=== PATIENT | female | born 1950 | race Caucasian/White ===

== ENCOUNTER 2024-11-27 11:14 | HOS | payer OTHER, MEDICARE, SELFPAY ==
--- OUTSIDE RECORDS SUMMARY | 2017-07-18 12:53 | XMS_ITS | Continuity of Care Document ---
Author Organization [facility] Address [address] [place] [address] Phone Care Team Providers Care Sole Leather Cutting Machine Operator Name Role Phone Ztest, Provider Unavailable Unavailable Allergies, Adverse Reactions, Alerts Substance Reaction Status Criticality haloperidol Other Active No Information HALOPERIDOL LACTATE Other Active No Infor mation Medications Medication Instructions Dosage Effective Dates (start - stop) Status Comments ADVAIR DISKUS 250-50MCG DISKS 1 BID 7 - Active SINGULAIR 10MG TABS 1 QPM - Active HYDROCHLOROTHIAZIDE 25MG TABS 1 QAM 7 - Active ENBREL 50MG/ML SYRINGES 1 Q WEEK - Ac tive ALBUTEROL 90MCG PUFFS 2 QID - Acti ve ADULT LOW STRENGTH 81MG TABS 1 QD - Active Advance Directives Directive Yes / No Effective Date File Name No Information Encounters Encounter Description Practice Location Reason(s) For Visit Diagnoses Date Provider Providers Copied on Encounter [facility], [address], [place], [place], [address] , [place] tel: [phone] [place] No Information 8 Ztest Provider. [address] [facility], 4th Floor, [place], [address], [place]. [phone] [facility], [address], [place], [place], [address] , tel: [phone] [employer] No Information 0 201 1 Juice Mary. [address] [place], [address], [place]. tel:[phone] [facility], [address], [place], [place], [address] , [place] tel: [phone] [place] OBESITY NOSRHEUMATOID ARTHRITIS Apr-2 6200 8 Conversion Doctor. [address] [place] [address], [address], [place]. [facility], [address], [place], [place], [address] , [place] tel: [phone] [place] BENIGN HYPERTENSIONDEPRESS SNEHA DISORDER NEC 6200 8 May Will [place], [address], [place]. tel: [phone] [facility], [address], [place], [place], [address] , [place] tel: [phone] [facility] ASTHMA NOS 0 8 Conversion Doctor. [address] [place] [address], [address], [place]. [facility], [address], [place], [place], [address] , [place] tel: [phone] [facility] ACUTE CHOLECYSTITIS 0 200 8 [facility] Robert. iWll [place], [address], [place]. tel: [phone] [facility], [address], [place], [address] , [place] tel: [phone] [place] ACUTE SINUSITIS NOSACUTE BRONCHITIS 200 7 [facility] Mason [address] [place] [address], [id number], [place]. tel: [phone] [facility], [address], [place], [address] , [place] tel: [phone] [place] CHR FRONTAL SINUSITISALOPECIA NOSANXIETY STATE NOSSCREEN MAL NEOP-CERVIXVISUAL DISTURBANCES NEC Sep-2 5-200 7 [facility] [place], [address], [place]. tel:[phone] [facility], [address], [place], [place], [address] , [place] tel:[phone] [place] SCREEN MAL NEOP-RECTUM Sep-2 5-200 7 Conversion Doctor. [address] [place] [address] [place], [address], [place]. [facility], [address], [place], [address] , [place] tel: [phone] [place] CHEST PAIN NEC 7 6 May Mason [address] [place], [place], [address], [place]. tel:[phone] [facility], [address], [place], [place], [address] , [place] tel: [phone] [place] ADJUSTMNT DIS W DEPRESSN 0200 6 May Cueto. [address] [place] [address], [id number], [place]. tel:[phone] [facility], [address], [place], [place], [address] , [place] tel: [phone] [place] ASTHMA NOS W (AC) EXAC 6 [facility] Cueto. [address] [place] [address], [id number], [place]. tel:[phone] [facility], [address], [place], [place], [address] , [place] tel: [phone] [place] No Information 6 Giuliazenaidaaletha Tyra. [address] [place], [address], [place]. tel:[phone] [facility], [address], [place], [place], [address] , [place] tel: [phone] [place] AGORAPHOBIA W PANIC DIS 6 [facility] Cueto. [address] [place] [address], [id number], [place]. tel:[phone] [facility], [address], [place], [address] , [place] tel: [phone] [place] SLEEP APNEA NOSBENIGN NEOPLASM SKIN NOSMALAISE AND FATIGUE NECGENERAL OSTEOARTHROSIS Sep-0 6-200 5 [facility] Cueto. [address] [place] [address], [id number], [place]. tel:[phone] [facility], [address], [place], [address] , [place] tel: [phone] [place] RETENTION URINE NOS 5 May Mason [address] [place], [address], [place]. tel:[phone] [facility] [employer], [address], [place], [place], [address] , [place] tel: [phone] [place] DISORDER OF THYROID NOS 4 Conversion Doctor. [address] [place], [address], [place]. [facility] [employer], [address], [place], [place], [address] , [place] tel:[phone] [place] ANEMIA NOSMEMORY LOSS 4 May Will [place], [address], [place]. tel:[phone] [facility], [address], [place], [place], [address] , [place] tel: [phone] [place] ROUTINE MEDICAL EXAMGYNECOLOGIC EXAMINATION 4 May Mason [address] [place], [place], [address], [place]. tel:[phone] [facility], [address], [place], [place], [address] , [place] tel: [phone] [place] HEMATURIA Feb- 4 Conversion Doctor. Pending sale to [facility] [place], [address], [place]. [facility] [employer], [address], [place], [place], [address] , [place] tel:[phone] [place] SCREEN MAL NEOP OTH SITEPURE HYPERCHOLESTEROLEMS CRN MALIG NEOP-PROSTATE 2 May Will [place], [address], [place]. tel:[phone] [facility] [employer], [address], [place], [place], [address] , [place] tel:[phone] [place] ESOPHAGEAL REFLUX 2 May Will [place], [address], [place]. tel:[phone] [facility], [address], [place], [place], [address] , tel: [phone] [facility] JOINT REPLACED KNEE Aug- 6-200 1 Nolandemetria Cueto. [address] [place], [place], [address], [place]. tel:[phone] [facility], [address], [place], [place], [address] , tel: [phone] [facility] NAUSEA ALONE Tavon- 0-200 1 Rafiq Singh. [address] [place], [place], [address]. tel:[phone] [facility], [address], [place], [place], [address] , tel: [phone] [facility] URIN TRACT INFECTION NOSSTOMACH FUNCTION DIS NECJOINT PAIN-UNSPEC Oct-0 5-200 0 Conversion Doctor. [address] [place] [address], [address], . Family History Family Member Type Diagnosis Age At Onset No Information Payers Payer name Insurance type Covered constitution party ID Authoriza tion(s) No Information Social History Type Description Quantity Date Captured Comments Alcohol Use Details Unknown Caffeine Use Details Unknown Tobacco Use Status No Information Smoking Status No Information Sex Female Chief Complaint And Reason For Visit No Information Reason For Referral Reason For Referral No Information History Of Present Illness Encounter Date Complaint History Of Prese nt Illness No Information Functional Status Date Functional Assessmen t No Information Instructions Date Instruction Additional Infor mation No Information Assessments Type Assessment Date No Information Patient Care Teams Name Effective Dates (start - stop) Status Members No Information
--- OUTSIDE RECORDS SUMMARY | 2017-07-18 12:53 | XMS_ITS | Continuity of Care Document ---
Author Organization [facility] Address [address] [place] [address] Phone Care Team Providers Care Rn Informatics Name Role Phone Ztest, Provider Unavailable Unavailable [...] Diagnoses Date Provider Providers Copied on Encounter [facility], [address], [place], [place], [address] , [place] tel: [phone] [place] No Information 8 Ztest Provider. [address] [address] [facility], 4th Floor, [place], [address], [place]. [phone] [employer], [address], [place], [place], [address] , tel: [phone] [employer] No Information 0 201 1 Juice Mary. [address] [place], [address], [place]. tel:[phone] [facility], [address], [place], [place], [address] , [place] tel: [phone] [facility] OBESITY NOSRHEUMATOID ARTHRITIS Apr-2 6200 8 Conversion Doctor. [address] [place] [address], [address], [place]. [facility], [address], [place], [place], [address] , [place] tel: [phone] [place] BENIGN HYPERTENSIONDEPRESS SNEHA DISORDER NEC 6200 8 May Will [place], [address], [place]. tel: [phone] [facility], [address], [place], [place], [address] , [place] tel: [phone] [facility] ASTHMA NOS 0 8 Conversion Doctor. [address] [place] [address], [address], [place]. [facility], [address], [place], [place], [address] , [place] tel: [phone] [facility] ACUTE CHOLECYSTITIS 0 200 8 [facility] Robert. Will [place], [address], [place]. tel: [phone] [facility], [address], [place], [place], [address] , [place] tel: [phone] [facility] ACUTE SINUSITIS NOSACUTE BRONCHITIS 200 7 [facility] Mason [address] [place] [address], [id number], [place]. tel: [phone] [facility], [address], [place], [place], [address] , [place] tel: [phone] [facility] CHR FRONTAL SINUSITISALOPECIA NOSANXIETY STATE NOSSCREEN MAL NEOP-CERVIXVISUAL DISTURBANCES NEC Sep-2 5-200 7 [facility] [place], [address], [place]. tel:[phone] [facility], [address], [place], [place], [address] , [place] tel:[phone] [facility] SCREEN MAL NEOP-RECTUM Sep-2 5-200 7 Conversion Doctor. [address] [place] [address] [place], [address], [place]. [employer], [address], [place], [place], [address] , [place] tel: [phone] [facility] CHEST PAIN NEC 7 6 May Mason [address] [place], [place], [address], [place]. tel:[phone] [employer], [address], [place], [place], [address] , [place] tel: [phone] [facility] ADJUSTMNT DIS W DEPRESSN 0200 6 May Cueto. [address] [place] [address], [address], [place]. tel:[phone] [employer], [address], [place], [place], [address] , [place] tel: [phone] [facility] ASTHMA NOS W (AC) EXAC 6 [facility] Cueto. [address] [place] [address], [id number], [place]. tel:[phone] [employer], [address], [place], [place], [address] , [place] tel: [phone] [facility] No Information 6 Giuliazenaidaaletha Tyra. [address] [place], [address], [place]. tel:[phone] [employer], [address], [place], [place], [address] , [place] tel: [phone] [place] AGORAPHOBIA W PANIC DIS 6 [facility] Cueto. [address] [place] [address], [id number], [place]. tel:[phone] [employer], [address], [place], [place], [address] , [place] tel: [phone] [facility] SLEEP APNEA NOSBENIGN NEOPLASM SKIN NOSMALAISE AND FATIGUE NECGENERAL OSTEOARTHROSIS Sep-0 6-200 5 [facility] Cueto. [address] [place] [address], [address], [place]. tel:[phone] [employer], [address], [place], [place], [address] , [place] tel: [phone] [facility] RETENTION URINE NOS 5 May Mason [address] [place], [place], [address], [place]. tel:[phone] [facility], [address], [place], [place], [address] , [place] tel: [phone] [facility] DISORDER OF THYROID NOS 4 Conversion Doctor. [address] [place], [address], [place]. [facility], [address], [place], [place], [address] , [place] tel:[phone] [facility] ANEMIA NOSMEMORY LOSS 4 May [address] [place], [address], [place]. tel:[phone] [facility], [address], [place], [place], [address] , [place] tel: [phone] [facility] ROUTINE MEDICAL EXAMGYNECOLOGIC EXAMINATION 4 May Mason [address] [place], [place], [address], [place]. tel:[phone] [facility], [address], [place], [place], [address] , [place] tel: [phone] [facility] HEMATURIA Feb- 4 Conversion Doctor. [facility] [place], [address], [place]. [facility], [address], [place], [place], [address] , [place] tel:[phone] [facility] SCREEN MAL NEOP OTH SITEPURE HYPERCHOLESTEROLEMS CRN MALIG NEOP-PROSTATE 2 May Will [place], [address], [place]. tel:[phone] [facility], [address], [place], [place], [address] , [place] tel:[phone] [facility] ESOPHAGEAL REFLUX 2 May [address] [place], [address], [place]. tel:[phone] [employer], [address], [place], [place], [address] , tel: [phone] [facility] JOINT REPLACED KNEE Aug- 6-200 1 Nolandemetria Cueto. [address] [place], [place], [address], [place]. tel:[phone] [facility], [address], [place], [place], [address] , tel: [phone] [facility] NAUSEA ALONE Tavon- 0-200 1 Rafiq Singh. [address] [place], [place], [address]. tel:[phone] [facility], [address], [place], [place], [address] , tel: [phone] [facility] URIN TRACT INFECTION NOSSTOMACH FUNCTION DIS NECJOINT PAIN-UNSPEC Oct-0 5-200 0 Conversion Doctor. [address] [place] [address], [address], . Family History Family Member Type Diagnosis Age At Onset No Information Payers Payer name Insurance type Covered republican ID Authoriza tion(s) No Information Social History [...]
--- OUTSIDE RECORDS SUMMARY | 2023-06-07 03:45 | XMS_ITS | Continuity of Care Document ---
Author Organization [facility] Address [address] [address] [place] [address] Phone Care Team Providers Care Crossbar Switch Adjuster Name Role Phone Thanh DARBY, Rocio Unavailable Unavailable Allergies, Adverse Reactions, Alerts Substance Reaction Status Criticality HALOPERIDOL LACTATE Active No Infor mation haloperidol Active No Information atorvastatin Active No Information adenosine Active No Information Procedures Procedure Date RADEX WRST 2 VIEWS POSTOP FOLLOW-UP VISIT RADEX WRST 2 VIEWS POSTOP FOLLOW-UP VISIT RADEX WRST 2 VIEWS POSTOP FOLLOW-UP VISIT RADEX WRST 2 VIEWS Wrist Long and Short Splint Aleshia POSTOP FOLLOW-UP VISIT RADEX WRST 2 VIEWS Splint supplies misc Special casting material [place] tape Cast sup sht arm adult fbrgl TX OF DISTAL RADIAL OR EPIPHYSEAL SEP W/ OR W/O ULNAR STYLOID FX OFFICE/OUTPATIENT VISIT NEW DOC FX & TEST/TXMNT FOR OP Advance Directives Directive Yes / No Effective Date File Name Resuscitation Not Answered N/A N/A Life Support Not Answered N/A N/A Intubation Not Answered N/A N/A Antibiotics Not Answered N/A N/A IV Fluid Support Not Answered N/A N/A Tube Feed Not Answered N/A N/A Other Directive N/A N/A WARNING:The information contained in this section is historical and is provided for information only and does not constitute a legal document or any assurance that the information is still accurate. Please verify the information with the blum of the legal document before using it for clinical purposes. Encounters Encounter Description Practice Location Reason(s) For Visit Diagnoses Date Provider Providers Copied on Encounter [facility] , [address] [facility] [address] [address], [place], [place], Critical access hospital, tel:[phone] [facility] Unspecified fracture of the lower end of left radius, subsequent encounter for closed fracture with routine healing May-0 4 Knetzer Rocio. [address], [place], [place], [address] [place] [address] , . tel: [phone] Referring Provider: Ana Rosa Mcdowell, [address] [place] [address], [facility]. tel:[phone] [facility] , [address] [address] [place] [address], [place], [place], Critical access hospital, tel:[phone] [facility] Unspecified fracture of the lower end of left radius, subsequent encounter for closed fracture with routine healing Apr- 4 Knetzer Rocio. [address], [place], [place], [address] , . tel: [phone] Referring Provider: Ana Rosa Mcdowell, [address] [place] [address], [facility]. tel:[phone] [facility] , [address] [facility], [place], Critical access hospital, tel:[phone] [facility] Unspecified fracture of the lower end of left radius, subsequent encounter for closed fracture with routine healingThumb pain, right Feb- 4 Knetzer Rocio. [address], [place], [place], [address] , . tel: [phone] Referring Provider: Ana Rosa Mcdowell, [address] [place] [address], [facility]. tel:[phone] [facility] , [address] [facility] [address], [place], [place], Critical access hospital, [phone] [facility] Closed fracture of distal end of left radius, unspecified fracture morphology, initial encounterThumb pain, right 4 Thanh Edgarn. [address], [place], [place], [address] , . tel: [phone] Referring Provider: Ana Rosa Mcdowell, [address] [place] [address], [address]. tel:[phone] OFFICE/OUTPAT IENT VISIT NEW [facility] , [address] [place] [address] [address], [place], Critical access hospital, [phone] [facility] Body mass index [BMI] 38.0-38.9, adultClosed fracture of distal end of left radius, unspecified fracture morphology, initial encounter 4 Thanh Chan. [address], [place], [place], [address] [place] [address] , . tel: [phone] Referring Provider: Ana Rosa Mcdowell, [address] [place] [address], [address]. tel:[phone] Family History Family Member Type Diagnosis Age At Onset No Information Payers Payer name Insurance type Covered republican ID Sohail bahena(s) Essence E2 [id number] Social History Type Description Quantity Date Captured Comments Alcohol Use Details Unknown Caffeine Use Details Unknown Tobacco Use Status Current non-smoker Smoking Status Never smoker Non-Smoking Tobacco Use Details : No Details Available : No Details Available Sex Female Chief Complaint And Reason For Visit No Information Reason For Referral Reason For Referral No Information Plan Of Treatment Date Type Action Status Referral Ordered: RADEX WRST 2 VIEWS LT ordered Referral Ordered: RADEX WRST 2 VIEWS LT wrist ordered History Of Present Illness Encounter Date Complaint History Of Prese nt Illness No Information Functional Status Date Functional Assessmen t No Information Instructions Date Instruction Additional Infor mation Fall prevention home exercise program handout provided Giving encouragement to exercise Related to Body mass index [BMI] 38.0-38.9, adult Assessments Type Assessment Date assessment Unspecified fracture of the lower end of left radius, subsequent encounter for closed fracture with routine healing Patient Care Teams Name Effective Dates (start - stop) Status Members No Information
--- OUTSIDE RECORDS SUMMARY | 2023-06-07 03:45 | XMS_ITS | Continuity of Care Document ---
Author Organization [facility] Address [address] [address] [place] [address] Phone Care Team Providers Care Casting Director Name Role Phone Thanh DARBY, Rocio Unavailable [...] VIEWS Splint supplies misc Special casting material [place] tape Cast sup sht arm adult fbrgl [...] Diagnoses Date Provider Providers Copied on Encounter [facility] , [address] [facility] [address] [place] [address], [place], [place], [facility], tel:[phone] [facility] Unspecified fracture of the lower end of left radius, subsequent encounter for closed fracture with routine healing May-0 4 Knetzer Rocio. [address] [facility] [address], [place], [place], [address] [place] [address] , . tel: [phone] Referring Provider: Ana Rosa Mcdowell, [address] [place] [address], [facility]. tel:[phone] [facility] , [address] [address] [place] [address], [place], [place], [facility], tel:[phone] [facility] Unspecified fracture of the lower end of left radius, subsequent encounter for closed fracture with routine healing Apr- 4 Knetzer Rocio. [address], [place], [place], [address] , . tel: [phone] Referring Provider: Ana Rosa Mcdowell, [address] [place] [address], [facility]. tel:[phone] [facility] , [address] [facility], [place], [place], [facility], tel:[phone] [facility] Unspecified fracture of the lower end of left radius, subsequent encounter for closed fracture with routine healingThumb pain, right Feb- 4 Knetzer Rocio. [address] [facility], [place], [place], [address] , . tel: [phone] Referring Provider: Ana Rosa Mcdowell, [address] [place] [address], [facility]. tel:[phone] [facility] , [address] [facility] [address] [facility] [facility], [place], [place], [facility], [phone] [facility] Closed fracture of distal end of left radius, unspecified fracture morphology, initial encounterThumb pain, right 4 Thanh Edgarn. [address], [place], [place], [address] , . tel: [phone] Referring Provider: Ana Rosa Mcdowell, [address] [place] [address], [address]. tel:[phone] OFFICE/OUTPAT IENT VISIT NEW [facility] , [address] [place] [address], [place], [place], [facility], [phone] [facility] Body mass index [BMI] 38.0-38.9, adultClosed fracture of distal end of left radius, unspecified fracture morphology, initial encounter 4 Thanh Chan. [address] [facility] [address], [place], [place], [address] [place] [address] , . tel: [phone] Referring Provider: Ana Rosa Mcdowell, [address] [place] [address], [address]. tel:[phone] Family History Family Member Type Diagnosis Age At Onset No Information Payers Payer name Insurance type Covered republican ID Sohail bahena(s) Essence E2 OT [id number] Social History Type Description Quantity Date Captured [...]
[2024-11-27] VITALS (9 sets, daily range): BP systolic 122–147; BP diastolic 73–108; PULSE 108–190; RESP 11–28; TEMP 36.3; O2SAT 88–95
--- NOTE | 2024-11-27 11:20 | ECG_ITS ---
Test Date: 2024-11-27 11:23:16 Measurements Intervals [place] Rate: 179 P: 0 MN: 0 QRS: -28 QRSD: 95 T: 156 QT: 267 QTc: 461 Interpretive Statements ATRIAL FIBRILLATION WITH RAPID VENTRICULAR RESPONSE BORDERLINE LEFT AXIS DEVIATION [QRS AXIS < -20] MODERATE VOLTAGE CRITERIA FOR LVH, CONSIDER NORMAL VARIANT [MEETS CRITERIA IN ONE OF: R(aVL), S(V1), R(V5), R(V5/V6)+S(V1)] ST DEVIATION AND MODERATE T-WAVE ABNORMALITY, CONSIDER LATERAL ISCHEMIA [-0.1+ mV T WAVE IN I/aVL/V5/V6] No previous ECG available for comparison Electronically Signed On 11-27-2024 14:44:54 CDT by Delroy Ruggiero M.D.
--- NOTE | 2024-11-27 11:29 | ER_ITS ---
This report was moved to the correct visit on 12/03/2024. The original report was signed by Filemon Guillermo MD on 11/27/24 [id number]. HPI - General Adult General Chief complaint: Arrhythmia/Palpitations Stated complaint: PAIN CONTRAOL Time Seen by Provider: 11/27/24 11:26 History of Present Illness HPI narrative: 74-year-old female with history of AFib that is currently on hospice presents to the emergency department for evaluation for feeling uneasy and restless peers patient was found to have a heart rate in the 180s upon arrival to the emergency department. And states they stopped her medications due to her being on hospice. Patient does want her heart rate to be controlled at time of initial evaluation. Related Data Allergies Allergy/AdvReac Type Severity Reaction Status Date / Time adhesive AdvReac Intermediate Rash Verified 11/27/24 14:30 Review of Systems Review of Systems: All systems reviewed & are unremarkable except as noted in HPI and below PMFSH Past Medical History Medical History (Updated 11/27/24 @ 17:56 by Filemon Guillermo MD) Tonsillar cancer Colon cancer metastasized to bone Congestive heart failure, unspecified Coronary artery disease Atrial fibrillation with RVR Essential hypertension Surgical History Surgical History (Updated 11/27/24 @ 17:44 by Clive Ferreira MD) Stented coronary artery 12/2018 History of lobectomy of lung Family History Family History (Updated 11/27/24 @ 17:46 by Clive Ferreira MD) Father Carcinoma of colon Lung cancer COPD (chronic obstructive pulmonary disease) Mother Acute myocardial infarction, Onset Age: 68 Other Unknown family medical history Social History Social History (Updated 11/27/24 @ 17:46 by Clive Ferreira MD) Social History: Lives in a duplex she shared with her son. 3 times. Lifelong nonsmoker. Occasionally had wine but no other alcohol. 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 Code status is DNR. Spiritual care concerns: No Exam Narrative: APPEARANCE: Uncomfortable appearing HEAD: normocephalic, atraumatic. EYES: PERRLA/EOMI, conjunctivae clear. NOSE: Normal no drainage EARS:TMS clear with good light reflex. THROAT: Pharynx clear, no exudate. NECK: Supple. No adenopathy, no masses. RESPIRATORY: Airway patent, respirations nonlabored. Clear to auscultation bilaterally, no rales, rhonchi, wheezing. CARDIOVASCULAR: AFib, tachycardia ABDOMINAL: Soft, nontender, nondistended, normal bowel sounds MUSCULOSKELETAL: Moves all extremities. Strength/ROM intact, No edema, No calf tenderness. NEURO: Alert. Cranial nerves II through XII intact. Good gait. Good coordination SKIN: Warm, dry. Normal Color Course Vital Signs Vital signs: Vital Signs Temperature 97.4 F L 11/27/24 11:14 Pulse Rate 166 H 11/27/24 11:14 Respiratory Rate 18 11/27/24 11:14 Blood Pressure 133/108 H 11/27/24 11:14 Pulse Oximetry 92 11/27/24 11:14 Oxygen Delivery Room Air 11/27/24 11:14 Temperature 97.3 F L 11/27/24 13:33 Pulse Rate 168 H 11/27/24 13:33 Respiratory Rate 24 H 11/27/24 13:33 Blood Pressure 134/73 11/27/24 13:33 Pulse Oximetry 90 11/27/24 13:33 Oxygen Delivery Room Air 11/27/24 11:14 Medical Decision Making MDM Narrative Medical decision making narrative: 74-year-old female presents emergency department for evaluation for rapid heart rate and increased anxiety. Patient is on hospice care for end-stage metastatic cancer. Patient had previously had her read controlling medications stopped. Patient's heart rate did spike today and patient did have increased anxiety and discomfort from this. The emergency department patient was unsure of her code status so patient was ordered baseline labs and patient was treated with IV fluids and started on Cardizem. Cardizem bolus did help to control her heart rate but as the Cardizem bolus wore off her heart rate once again increased to the 180s. After a discussion with the hospice nurse and the family the family and patient wished to be made comfort care. They do not wish to have any additional medications given for heart rate control. Patient will be admitted to inpatient hospice. Paperwork for DNI DNR/comfort care was signed. Differential Diagnosis Differential Diagnosis: AFib, a flutter, ACS, dehydration, UTI, COVID, RSV, influenza Vital Signs Vital Signs: Vital Signs Temperature 97.4 F L 11/27/24 11:14 Pulse Rate 166 H 11/27/24 11:14 Respiratory Rate 18 11/27/24 11:14 Blood Pressure 133/108 H 11/27/24 11:14 Pulse Oximetry 92 11/27/24 11:14 Oxygen Delivery Room Air 11/27/24 11:14 Temperature 97.3 F L 11/27/24 13:33 Pulse Rate 168 H 11/27/24 13:33 Respiratory Rate 24 H 11/27/24 13:33 Blood Pressure 134/73 11/27/24 13:33 Pulse Oximetry 90 11/27/24 13:33 Oxygen Delivery Room Air 11/27/24 11:14 Lab Data Lab results reviewed: Yes I reviewed the patient's lab results. 11/27/24 11:42 11/27/24 11:42 Labs: Lab Results 11/27/24 11/27/24 Range/Units 11:42 13:58 WBC 15.6 H (4.5-10.0) K/mm3 RBC 5.87 H (4.2-5.4) M/mm3 Hgb 16.2 H (12.0-15.0) g/dL Hct 50.9 H (37.0-47.0) % MCV 86.7 (80-100) fl MCH 27.6 (26-34) pg MCHC 31.8 L (32-36) g/dl RDW 16.8 H (11.5-14.5) % Plt Count 261 (150-375) k/mm3 MPV 10.6 H (7.4-10.4) fl Immature Gran % (Auto) 1.1 H (0-0.5) % Neut % (Auto) 87.2 H (45.5-73.1) % Lymph % (Auto) 5.2 L (18.3-44.2) % [place] % (Auto) 6.4 (2.6-8.5) % Eos % (Auto) 0.0 (0-4.4) % Baso % (Auto) 0.1 L (0.2-1.2) % Lymph # (Auto) 0.81 L (0.9-3.2) K/mm3 [place] # (Auto) 1.0 H (0.1-0.6) K/mm3 Eos # (Auto) 0.0 (0-0.3) K/mm3 Baso # (Auto) 0.0 (0.0-0.1) K/mm3 Abs Immat Gran (auto) 0.17 H (0.00-0.031) K/mm3 Absolute Neuts (auto) 13.6 H (1.3-6.7) K/mm3 Absolute Nucleated RBC 0.030 H (0.0-0.012) K/mm3 Nucleated RBC % 0.2 (0.0-0.2) % PT 15.2 H (11.1-14.7) Seconds INR 1.2 APTT 23.6 (22.3-36.8) Seconds Sodium 145 (137-145) mmol/L Potassium 4.2 (3.4-5.0) mmol/L Chloride 97 L (98-107) mmol/L Carbon Dioxide 32 H (22-30) mmol/L Anion Gap 16 H (4-12) mmol/L BUN 63 H (7-17) mg/dL Creatinine 1.62 H (0.7-1.0) mg/dL Estim Creat Clear Calc 25 ml/min Estimated GFR 31 L (59 - ) Glucose 182 H (65-110) mg/dL Calcium 10.2 (8.4-10.2) mg/dL Total Bilirubin 2.2 H (0.2-1.3) mg/dL AST 27 (14-36) U/L ALT 18 (6-35) U/L Alkaline Phosphatase 86 (38-126) U/L Total Protein 8.0 (6.3-8.2) g/dL Albumin 4.6 (3.5-5.1) g/dL Urine Color Dark yellow (Yellow) Urine Appearance Turbid H (Clear) Urine pH 5.5 (5.0-9.0) Ur Specific [place] 1.029 (1.001-1.035) Urine Protein 2+ H (Negative) mg/dL Urine Glucose (UA) Negative (Negative) mg/dL Urine Ketones 1+ H (Negative) mg/dL Ur Blood (Man) 2+ H (Negative) Urine Nitrate Negative (Negative) Urine Bilirubin 2+ H (Negative) Urine Urobilinogen 1.0 (<2.0) mg/dL Add Ur Microanalysis Reviewed Leukocyte Esterase Rfl 2+ H (Negative) EDDI/UL Urine RBC 21-50 H (0-2) /hpf Urine WBC 11-20 H (0-3) /hpf Ur Squamous Epith Cells Moderate (Few) /hpf Urine Bacteria 1+ H /hpf Urine Casts 11-20 Discharge Plan Discharge Clinical Impression: Atrial fibrillation, Anxiety, Hospice care Patient Disposition: Hospice [facility] Inpatient Condition: Serious Patient Language: Serbian Follow-up/Referrals: UNKNOWN,DOCTOR [Non-Staff] Please be advised this is a medical document. It is intended for yssv-gm-ohpo communication. It is written in medical language and may contain unfamiliar abbreviations or verbiage. Medical documents are intended to carry relevant information, facts as evident, and the clinical opinion of the practitioner at the time of the encounter. This report may have been done utilizing a voice recognition system. Attempts have been made to correct errors. However, there may be uncorrected grammatical, spelling, and recognition errors present. The file time of this note does not necessarily represent the time the patient was seen. Report Initialized date/time: Filemon Guillermo MD 11/27/24 / 1129 Electronically signed by: Filemon Guillermo MD 11/27/24 [id number]
[2024-11-27] MEDS: LACTATED RINGERS 1,000 ML 999 ML IV CONT (11:38)
[2024-11-27 11:52] LABS: Hematocrit 50.9 % (37.0-47.0); Hemoglobin 16.2 g/dL (12.0-15.0); Immature Granulocyte Percent A 1.1 % (0-0.5); Lymphocytes Absolute Auto 0.81 K/mm3 (0.9-3.2); Mean Corpuscular HGB Conc 31.8 g/dl (32-36); Mean Corpuscular Hemoglobin 27.6 pg (26-34); Mean Corpuscular Volume 86.7 fl (80-100); Nucleated Red Blood Cells Absolute Auto 0.030 K/mm3 (0.0-0.012); Nucleated Red Blood Cells Perc 0.2 % (0.0-0.2); Platelet Count Result 261 k/mm3 (150-375); Red Blood Count 5.87 M/mm3 (4.2-5.4); White Blood Count 15.6 K/mm3 (4.5-10.0)
[2024-11-27 12:02] LABS: INR 1.2; Prothrombin Time 15.2 Seconds (11.1-14.7)
[2024-11-27 12:03] LABS: Partial Thromboplastin Time 23.6 Seconds (22.3-36.8)
[2024-11-27 12:07] LABS: Alanine Aminotransferase 18 U/L (6-35); Albumin Level 4.6 g/dL (3.5-5.1); Alkaline Phosphatase 86 U/L (38-126); Anion Gap 16 mmol/L (4-12); Aspartate Amino Transferase 27 U/L (14-36); Bilirubin,Total 2.2 mg/dL (0.2-1.3); Blood Urea Nitrogen 63 mg/dL (7-17); Calcium 10.2 mg/dL (8.4-10.2); Carbon Dioxide 32 mmol/L (22-30); Chloride 97 mmol/L (98-107); Estimated CRCL calculation 25 ml/min; Estimated Glomerular Filt Rate 31; Glucose 182 mg/dL (65-110); Potassium 4.2 mmol/L (3.4-5.0); Sodium 145 mmol/L (137-145); Total Protein 8.0 g/dL (6.3-8.2)
--- OUTSIDE RECORDS SUMMARY | 2024-11-27 12:10 | XMS_ITS | Encounter Summary ---
Author Organization [facility] Facility Care Team Providers Care Technician Support Association Name Role Phone Bunny Chan MD Primary Care Provider [phone] Matt Maloney MD Unavailable [phone] Karen Vieira MD Unavailable Asim Alejandre MD Unavailable [phone] Nathan Kaye DO Unavailable [phone] Bunny Chan MD Primary Care Provider [phone] Bunny Chan MD Primary Care Provider +[phone] Asim Alejandre MD Unavailable [phone] Roby Claudio MD Unavailable [phone] Manuel Bravo MD Unavailable [phone] Bunny Chan MD Primary Care Provider [phone] Roby Claudio MD Unavailable [phone] Asim Alejandre MD Unavailable [phone] Encounter Details Date Type Department Care Team (Latest Contact Info) Description 12/14/2016 Orders Only [facility] ProviderViridiana MD [address] [place] [id number] Social History Tobacco Use Types Packs/Day Years Used Date Smoking Tobacco: Never Assessed Comments Unknown Sex and Gender Information Value Date Recorded Sex Assigned at Not on file 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 Gender Identity Not on file Sexual Orientation Not on file documented as of this encounter Plan of Treatment Upcoming Encounters Date Type Department Care Team (Late st Contact Info) Description 07/18/2025 7:30 AM CDT Hospital Encounter [facility] [address] [place] [address] Karen Vieira MD [address] [place] [address] [id number] 07/18/2025 7:30 AM CDT - 07/18/2025 8:00 AM CDT Surgery [facility] [address] [place] [address] Karen Vieira MD [address] [place] [address] COLONOSCOPY Scheduled Procedures Name Priority Associated Diagnoses Date/Ti me COLONOSCOPY Hx colon cancer 07/18/2025 7:30 AM CDT documented as of this encounter Procedures Procedure Name Priority Date/Time Associated Diagnosis Comments SCAN - LABS 12/14/2016 12:00 AM CDT documented in this encounter Results * SCAN - LABS (12/14/2016 12:00 AM CDT) Narrative 12/14/2016 12:00 AM CDT Ordered by an unspecified provider. 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 documented as of this encounter Care Teams Technician Support Association Relationship Specialty Start Date End Date Bunny Chan MD PCP - General 04/08/17 12/30/22 Bunny Chan MD [facility]8 [facility], [address] [id number] PCP - General Family Medicine 12/31/22 06/28/23 Bunny Chan MD [address] [place] [address] MEDICAL ONCOLOGY, [address] [address] PCP - General Family Medicine 06/29/23 08/20/24 Bunny Chan MD [address] [place] [address] PCP - General Family Medicine 08/21/24 Matt Maloney MD Medical Oncologist/Hematologis t Hematology and Oncology 12/07/17 11/15/21 Karen Vieira MD [address] [place] [address] Referring Physician General Surgery 11/26/19 Asim Alejandre MD [address] [place] [address] Oral Pathologist Interventional Cardiology 08/13/21 06/28/23 Nathan Kaye DO [address] [place] [address] MEDICAL ONCOLOGY, [address] [id number] Medical Oncologist/Hematologis t Hematology and Oncology 11/16/21 Asim Alejandre MD 1418 [facility], [facility] [address] [place] [address] Referring Physician Interventional Cardiology 06/29/23 08/20/24 Roby Claudio MD [facility]8 [facility], [facility] [address] [place] [address] Consulting Physician Pulmonary Disease 12/02/23 5 Manuel Bravo MD [facility]8 [facility] [address] [place], [place] [address] Radiation Oncologist Radiation Oncology 08/17/24 Roby Claudio MD [facility]0 [facility] [address] [place] [address] Consulting Physician Pulmonary Disease 08/21/24 Asim Alejandre MD [address] [place], [place] [address] Referring Physician Interventional Cardiology 08/21/24 documented as of this encounter
--- OUTSIDE RECORDS SUMMARY | 2024-11-27 12:10 | XMS_ITS | Encounter Summary ---
Author Organization [facility] Address [address] [address] Care Team Providers Care Cover Operator Name Role Phone Bunny Chan MD Primary Care Provider [phone] Matt Maloney MD Unavailable [phone] Karen Vieira MD Unavailable Asim Alejandre MD Unavailable + [phone] Nathan Kaye DO Unavailable [phone] Bunny Chan MD Primary Care Provider + Bunny Chan MD Primary Care Provider +[phone] Asim Alejandre MD Unavailable [phone] Roby Claudio MD Unavailable [phone] Manuel Bravo MD Unavailable [phone] Bunny Chan MD Primary Care Provider +[phone] Roby Claudio MD Unavailable [phone] Asim Alejandre MD Unavailable [phone] Encounter Details Date Type Department Care Team (Late st Contact Info) Description 03/12/2014 Orders Only [facility] Health Information Management [address] [place] [address] Scanning, Provider Social History Tobacco Use Types Packs/Day Years Used Date Smoking Tobacco: Never Assessed Comments Unknown Sex and Gender Information Value Date Recorded Sex Assigned at Not on file 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 Gender Identity Not on file Sexual Orientation Not on file documented as of this encounter Plan of Treatment Upcoming Encounters Date Type Department Care Team (Late st Contact Info) Description 07/18/2025 7:30 AM CDT Hospital Encounter [facility] GI Lab [address] [place] [address] Karen Vieira MD [address] [place] [address] 07/18/2025 7:30 AM CDT - 07/18/2025 8:00 AM CDT Surgery [facility] Lab [address] [place] [address] Karen Vieira MD [address] [place] [address] COLONOSCOPY Scheduled Procedures Name Priority Associated Diagnoses Date/Ti me COLONOSCOPY Hx colon cancer 07/18/2025 7:30 AM CDT documented as of this encounter Procedures Procedure Name Priority Date/Time Associated Diagnosis Comments CARDIOLOGY DOCUMENT SCAN 03/12/2014 documented in this encounter Results * SCAN - CARDIOLOGY (03/12/2014) Anatomical Region Laterality Modality Other Provider Scanning CV CARDIAC SERVICES PROCEDURES Final Result documented in this encounter Visit Diagnoses Not on filedocumented in this encounter Additional Health Concerns Infection Onset Date Last Indicated Resolved Time COVID: Suspected 09/16/2021 09/16/2021 09/16/2021 7:44 AM CDT Norovirus suspected 03/19/2024 03/19/2024 03/19/19 4:19 PM 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 COVID: Suspected 03/19/2024 03/19/2024 03/19/2024 11:53 AM 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 SPECIALIST documented as of this encounter Care Teams Cover Operator Relationship Specialty Start Date End Date Bunny Chan MD PCP - General 04/08/17 12/30/22 Bunny Chan MD [facility]8 [facility], [facility] [address] [place], [place] [address] PCP - General Family Medicine 12/31/22 06/28/23 Bunny Chan MD [facility]8 [facility], [facility] [address] [place] [address] PCP - General Family Medicine 06/29/23 08/20/24 Bunny Chan MD [address] [place] [address] PCP - General Family Medicine 08/21/24 Matt Maloney MD Medical Oncologist/Hematologis t Hematology and Oncology 12/07/17 11/15/21 Karen Vieira MD [address] [place] [address] Referring Physician General Surgery 11/26/19 Asim Alejandre MD [facility] [address] [address] Personal Care Home Administrator Interventional Cardiology 08/13/21 06/28/23 Nathan Kaye DO [facility]8 [facility], [facility] [address] [place] [address] Medical Oncologist/Hematologis t Hematology and Oncology 11/16/21 Asim Alejandre MD 1418 [facility], [facility] [address] [place], [place] [address] Referring Physician Interventional Cardiology 06/29/23 08/20/24 Roby Claudio MD 1418 [facility], [facility] [address] [place] [address] Consulting Physician Pulmonary Disease 12/02/23 5 Manuel Bravo MD [facility]8 [facility] [address] [place] [address] Radiation Oncologist Radiation Oncology 08/17/24 Roby Claudio MD 4600 [facility] 200 [place] [address] Consulting Physician Pulmonary Disease 08/21/24 Asim Alejandre MD [address] [place] [address] [address] [place], [place] [address] Referring Physician Interventional Cardiology 08/21/24 documented as of this encounter
--- OUTSIDE RECORDS SUMMARY | 2024-11-27 12:10 | XMS_ITS | Clinical Summary ---
Author Organization [facility] Address [address] [place] [address] Care Team Providers Care Extension Course Counselor Name Role Phone Karen Vieira MD Unavailable Nathan Kaye DO Unavailable [phone] Manuel Bravo MD Unavailable [phone] Bunny Chan MD Primary Care Provider [phone] Roby Claudio MD Unavailable [phone] Asim Alejandre MD Unavailable [phone] Allergies Active Allergy Reactions Criticality Noted Date Comments Adhesive Other (See comments) Low 09/16/2021 Removed skin when taken off on stomach only okay on other parts of body Medications rivaroxaban (XARELTO) 20 mg tablet Take 1 tablet (20 mg total) by mouth daily with dinner 90 tablet 1 3 Active atorvastatin (LIPITOR) 80 mg tablet Take 1 tablet (80 mg total) by mouth nightly Active losartan (COZAAR) 100 mg tablet Take 1 tablet (100 mg total) by mouth daily Active montelukast (SINGULAIR) 10 mg tabletIndicatio ns:Non-seasonal allergic rhinitis due to pollen TAKE 1 TABLET BY MOUTH EVERY DAY AT NIGHT 90 tablet 2 4 Active nitroglycerin (NITROSTAT) 0.[address] 1 tablet (0.4 mg total) under the tongue every 5 (five) minutes as needed for chest pain 4 Active dilTIAZem CD 180 mg 24 hr capsule Take 1 capsule (180 mg total) by mouth daily 5 Active ondansetron (ZOFRAN) 4 mg tablet Take 1 tablet (4 mg total) by mouth every 6 (six) hours as needed for nausea or vomiting 30 tablet 2 5 Active benzonatate (TESSALON) 100 mg capsule Take 1 capsule (100 mg total) by mouth 3 (three) times a day as needed for cough 30 capsule 5 Active acetaminophen (TYLENOL) 325 mg tabletIndicatio ns:Fever,Pain Take 2 tablets (650 mg total) by mouth every 4 (four) hours as needed for pain, headaches or fever 5 Active pregabalin (LYRICA) 50 mg capsule Take 1 capsule (50 mg total) by mouth 3 (three) times a day 90 capsule 1 5 04/01/[address] (PROTONIX) 40 mg EC tablet Take 1 tablet (40 mg total) by mouth 2 (two) times a day 60 tablet 5 Active meloxicam (MOBIC) 15 mg tablet 5 Active oxyCODONE (ROXICODONE) 20 mg tabletIndicatio ns:Cancer associated pain Take 1 tablet (20 mg total) by mouth every 4 (four) hours as needed for pain 100 tablet 5 Active furosemide (LASIX) 20 mg tablet Take 1 tablet (20 mg total) by mouth daily 30 tablet 5 Active predniSONE (DELTASONE) 20 mg tabletIndicatio ns:Anti-inflamm atory Take 3 tablets (60 mg) by mouth daily 90 tablet 5 11/03/19 25 Active Problems Patient Care Coordination No te Formatting of this note migh t be different from the original. Referring provider: Dr. Claudio Ms. Joseph Rodriguez is a 70-year-old with a lung nodule. Patient has a history of stage III colon cancer diagnosed in 2019 and is status post partial colectomy and chemotherapy and non-Hodgkin's lymphoma diagnosed in 2017 and is status post chemotherapy and has been in remission since 2018. More recently, she presented with a cough. She was told this was because of her blood pressure medication. On 06/19/2021 the patient underwent a surveillance CT of the chest/abdomen/pelvis with contrast which showed a new 1.1 cm nodule in the right lower lobe. On 06/30/2021 the patient underwent a PET scan which again showed the right lower lobe lung nodule with a maximum SUV of 10.9. There was no evidence of any local, regional or distant metastatic disease. On 07/08/2019 the patient underwent pulmonary function testing which showed an FEV1 of 83% of predicted and a DLCO of 84% of predicted. Patient is a never smoker. She has a history of CAD and is status post stent placement x2 in 2019. Patient presents today for further surgical evaluation. Problem Noted Date Diagnosed Date Severe malnutrition 10/18/2024 Atrial fibrillation with RVR 10/16/2024 Pleural effusion on right 09/27/2024 Palliative care by specialist 09/27/2024 Cancer-related breakthrough pain 09/27/2024 Transient alteration of awareness 09/27/2024 Nausea 09/27/2024 Opioid-induced constipation 09/27/2024 Colon cancer metastasized to lung 09/27/2024 Chronic anticoagulation 04/02/2024 Moderate protein-calorie malnutrition 03/20/2024 Dehydration 03/20/2024 PAMELA (acute kidney injury) 03/20/2024 Dysfunction of both eustachian tubes 03/12/2024 Epistaxis 03/12/2024 Deviated nasal septum 03/12/2024 Chemotherapy-induced neutropenia 02/15/2024 Cough with hemoptysis 11/29/2023 Mass of soft tissue 11/29/[address] nodules [address] 11/29/2023 Secondary malignant neoplasm of right lung 10/17 Paroxysmal atrial fibrillation 07/01/2023 Non-seasonal allergic rhinitis due to pollen Encounter for management of implanted device 09/2022 On continuous oral anticoagulation 01/05/2023 History of cardiomyopathy 01/05/2023 Pulmonary hypertension 06/30/2022 Paroxysmal atrial fibrillation 06/17/2022 Atrial fibrillation with rapid ventricular respo nse 05/28/2022 Mediastinal lymphadenopathy 05/12/2022 Overview (05/12/2022): Added automatically from request for surgery [id number] Hiatal hernia 04/27/2022 Palpitations 04/15/2022 BMI 32.0-32.9,adult 01/26/2022 Chronic cough 11/24/2021 Posterior rhinorrhea 11/24/2021 Status post partial lobectomy of lung 11/24/2021 Iron deficiency anemia 11/16/2021 Aortic root dilatation 10/23/2021 Diverticular disease 10/23/2021 Grade I diastolic dysfunction 10/23/2021 Left-sided epistaxis 10/23/2021 Mild concentric left ventricular hypertrophy Mixed dyslipidemia 10/23/2021 Obesity, Class I, BMI 30-34.9 10/23/2021 Obstructive sleep apnea 10/23/2021 Acute angina 10/23/2021 Chest pain on exertion 10/23/2021 Coronary artery disease invo lving shoshone[place]bannock coronary artery of shoshone[place]bannock heart without angina pectoris 10/23/2021 History of colonic polyps 10/23/2021 Primary malignant neoplasm o f colon with metastasis in female 10/23/2021 Well child examination 10/23/2021 Shortness of breath 09/16/2021 Solitary pulmonary nodule 07/03/2021 Nonsmoker 07/03/2021 History of colon cancer 07/03/2021 Malignant neoplasm of sigmoid colon 10/24/2019 Cancer Staging:Clinical stage from 11/21/2019:Stage IIIC(cT3, cN2b, cM0) - Unsigned Preoperative evaluation of a medical condition to rule out surgical contraindications (TAR required) 10/01/2019 Coronary artery disease invo lving shoshone[place]bannock coronary artery of shoshone[place]bannock heart 02/14/2019 Nonrheumatic aortic valve insufficiency 02/15/20 19 History of cardiac catheterization 02/05/2019 Angina pectoris, unstable 01/29/2019 Chest pain 01/29/2019 Dyspnea on exertion 01/29/2019 Abnormal ECG 01/29/2019 Essential hypertension 01/29/2019 Mixed hyperlipidemia 01/29/2019 Nonrheumatic tricuspid valve regurgitation 01/29 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 Osteoarthrosis, pelvic region and thigh 12/14/19 17 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 17 Other and unspecified hyperlipidemia 12/13/2016 Pure hypercholesterolemia 12/09/2016 Essential (primary) hypertension 06/05/2015 Resolved Problems Problem Noted Date Diagnosed Date Resolved Date Hyperkalemia 12/01/2023 12/02/2023 Encounters Date Type Department Care Team Description 10/24/2024 Home Care Visit [address] [place] [address] Amalia Alvarez RN SN TRIAGE ENCOUNTER 10/22/2024 4:00 PM CDT Office Visit [facility] [address] [facility] [address] [place] [phone] Nathan Kaye DO Malignant neoplasm of sigmoid colon (HCC) (Primary Dx); Cancer associated pain 10/21/2024 Home Care Visit [address] [place] [address] Liliane Tomlin RN SN TRIAGE ENCOUNTER 10/20/2024 Orders Only [facility] [address] [facility] [address] [place] [address] Andrea Zhu MD 10/20/2024 Telephone [facility] [address] [place] [phone] Zoila Charles RN 10/16/2024 11:19 AM CDT - 10/18/2024 11:04 AM CDT Hospital Encounter [facility] 5 Med Surg [address] [place] [address] Sera Chacon MD [place], MD Heather Anne, oRn James MD Atrial fibrillation with RVR (HCC) (Primary Dx); Nausea and vomiting, unspecified vomiting type; Cancer associated pain Discharge Disposition: Discharge to home or self care 10/03/2024 3:15 PM CDT Office Visit [facility] Oncology [address] [facility] [address] [place] [phone] Vargas, Nathan L., DO Malignant neoplasm of sigmoid colon (HCC) 10/03/2024 2:45 PM CDT Clinical Support [facility] at [address] [address] Malignant neoplasm of sigmoid colon (HCC) 09/28/2024 12:15 PM CDT Treatment [facility] Medical Office Building 2 Radiation Oncology [address] [place] [phone] Manuel Bravo MD 09/28/2024 12:00 PM CDT Treatment [facility] Medical Office Building 2 Radiation Oncology [address] [place] [address] Manuel Bravo MD 09/28/2024 8:00 AM CDT Treatment [facility] Medical Office [facility] 2 Radiation Oncology [address] [place] [address] Manuel Bravo MD 09/28/2024 Completion of Therapy [facility] 2 Radiation Oncology [address] [place] [address] Manuel Bravo MD 09/28/2024 Orders Only RAD ONC TREATMENTS Miscellaneous, Not In File 09/28/2024 OTV [facility] 2 Radiation Oncology [address] [place] [address] Manuel Bravo MD 09/26/2024 10:43 PM CDT - 09/28/2024 3:11 PM CDT Hospital Encounter [facility] 5 Med Surg [address] [place] [address] Brigida Marquez MD Sada, MD Obie Ivy, Nicolas Celaya MD Pleural effusion on right (Primary Dx); Rib lesion; Intractable pain; Hypoxemia; Palliative care by specialist [Z51.5]; Cancer-related breakthrough pain [G89.3]; Transient alteration of awareness [R40.4]; Nausea [R11.0]; Opioid-induced constipation [K59.03, T40.2X5A]; Colon cancer metastasized to lung (HCC) [C18.9, C78.00] Discharge Disposition: Discharge to home or self care 09/21/2024 Telephone [facility] [address] [place] [address] [address] [place] [address] Torrie Johnson, [facility] 09/10/2024 Telephone [facility] Physicians [facility] [address] [place] [address] [address] [place] [phone] Joseph Camejo CMA 09/05/2024 9:45 AM CDT Office Visit [facility] [address] [place] [address] [address] [place] [address] Nathan Kaye, Malignant neoplasm of sigmoid colon (HCC) (Primary Dx); 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) 09/05/2024 9:15 AM CDT Clinical Support [facility] at [address] [phone] 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); Malignant neoplasm of sigmoid colon (HCC); Secondary malignant neoplasm of right lung (HCC) 08/29/2024 Documentation [facility] [address] [facility] [address] [place] [address] Barbara Rosen, LALIT PRIOR AUTH-FRUZAQLA from Last 3 Months Immunizations Immunization Administration Dates Next Due Pfizer SARS-CoV-2 Monovalent Vaccination (12+ Yrs) PURPLE 07/22/2020,07/01/2020 Surgical History Surgery Date Site/Laterality Comments APPENDECTOMY MOHS SURGERY 02/29/2000 - 02/27/2001 N/A Forehead SKIN CANCER EXCISION CARDIAC SURGERY 02/05/2019 N/A Cardiac stents x2 for angina COLON SURGERY august 2019 - colon cancer, colon resection followed by chemo; COLONOSCOPY x2 hx of polyps PORTACATH PLACEMENT 2019 CT CHEST TUBE INSERTION RIGHT 09/02/2021 LOBECTOMY 08/28/2021 - 09/27/2021 Right Medical History Medical History Date Comments Lymphoma (HCC) 11/2016 chemo tx til 3/2 018 Skin cancer Hyperlipidemia Hypertension Chest pain Coronary artery disease Colon cancer (HCC) 04/2019 chemo afterwa rds CAD S/P percutaneous coronar y angioplasty Motion sickness Claustrophobia Sleep apnea treated with noc turnal BiPAP 10/23/2021 Cough Lung disease Pneumothorax on right 08/2021 occured du ring procedure - had to stop procedure - chest tube inserted Menopause Nosebleed Family History Medical History Relation Name Comments Diabetes Brother Heart disease Brother Hypertension Brother Heart disease Father Lung cancer Father Colon cancer Father's Brother 1 Colon cancer Father's Brother 2 Diabetes Father's Sister Heart disease Mother Hypertension Mother Diabetes Paternal Grandmother Relation Name Status Comments Brother Father Father's Brother 1 Father's Brother 2 Father's Sister Mother Paternal Grandmother Social History Tobacco Use Types Packs/Day Years Used Date Smoking Tobacco: Never Smokeless Tobacco: Never Tobacco Cessation:Counseling Given: Not Answered Alcohol Use Standard Drinks/Week Comments Not Currently 0 (1 standard drink = 0.6 oz pur e alcohol) ocassional Social Connection and Isolation Panel Answer Date Recorded In a typical week, how many times do you talk on the phone with family, friends, or neighbors? More than three times a week 09/27/2024 How often do you get togethe r with friends or relatives? More than three times a week 09/27/2024 How often do you attend chur ch or holiness services? Never 09/27/2024 Do you belong to any clubs o r organizations such as jehovah's witness groups, unions, fraternal or athletic groups, or school groups? No 09/27/2024 How often do you attend meet ings of the clubs or organizations you belong to? Never 09/27/2024 Are you , , di vorced, , never , or living with a partner? 09/27/2024 AUDIT-C Answer Date Recorded Q1: How often do you have a drink containing alcohol? Monthly or less 10/03/2024 Q2: How many drinks containi ng alcohol do you have on a typical day when you are drinking? Patient does not drink Q3: How often do you have si x or more drinks on one occasion? Never 10/03/2024 Overall Financial Resource Strain (CARDIA) Answe r Date Recorded How hard is it for you to pa y for the very basics like food, housing, medical care, and heating? Not hard at all 09/27/2024 PHQ-2 Answer Date Recorded PHQ-2 Total Score (If total score is 3 or more points, staff should administer the PHQ-9) 0 10/23/2021 PRAPARE - Transportation Answer Date Re corded In the past 12 months, has l ack of transportation kept you from medical appointments or from getting medications? No 08/30 In the past 12 months, has l ack of transportation kept you from meetings, work, or from getting things needed for daily living? No 09/27/2024 Housing Stability Vital Sign Answer Rocky e Recorded In the last 12 months, was t here a time when you were not able to pay the mortgage or rent on time? No 09/27/2024 In the past 12 months, how m any times have you moved where you were living? 0 09/27/2024 At any time in the past 12 m [facility], were you homeless or living in a group home (including now)? No 09/27/2024 Social Connection and Isolation Panel Answer Date Recorded In a typical week, how many times do you talk on the phone with family, friends, or neighbors? More than three times a week 10/17/2024 How often do you get togethe r with friends or relatives? More than three times a week 10/17/2024 How often do you attend chur ch or holiness services? Never 10/17/2024 Do you belong to any clubs o r organizations such as jehovah's witness groups, unions, fraternal or athletic groups, or school groups? No 10/17/2024 How often do you attend meet ings of the clubs or organizations you belong to? Never 10/17/2024 Are you , , di vorced, , never , or living with a partner? 10/17/2024 Overall Financial Resource Strain (CARDIA) Answe r Date Recorded How hard is it for you to pa y for the very basics like food, housing, medical care, and heating? Not very hard 10/17/2024 Hunger Vital Sign Answer Date Recorded Within the past 12 months, y ou worried that your food would run out before you got the money to buy more. Never true 10/18/19 25 Within the past 12 months, t he food you bought just didn't last and you didn't have money to get more. Never true 10/17/2024 PRAPARE - Transportation Answer Date Re corded In the past 12 months, has l ack of transportation kept you from medical appointments or from getting medications? No 09/29 In the past 12 months, has l ack of transportation kept you from meetings, work, or from getting things needed for daily living? No 10/17/2024 Housing Stability Vital Sign Answer Rocky e Recorded In the last 12 months, was t here a time when you were not able to pay the mortgage or rent on time? No 10/17/2024 In the past 12 months, how m any times have you moved where you were living? 0 10/17/2024 At any time in the past 12 m [facility], were you homeless or living in a group home (including now)? No 10/17/2024 [facility] Utilities Answer Date Recorded In the past 12 months has th e electric, gas, oil, or water company threatened to shut off services in your home? No 10/17/2024 Personal Safety Answer Date Recorded Have you ever been in or are you currently in a harmful physical or emotional relationship or is someone making you feel afraid or unsafe? 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 Gender Identity Not on file Sexual Orientation Not on file Obstetrics History Last Filed Vital Signs Vital Sign Reading Time Taken Comments Blood Pressure 122/84 10/22/2024 4:20 PM CDT Pulse 70 10/22/2024 4:20 PM CDT Temperature 36.6 C (97.9 F) 10/22/2024 4:20 PM CDT Respiratory Rate 18 10/22/2024 4:20 PM CDT Oxygen Saturation 96% 10/22/2024 4:2 0 PM CDT Inhaled Oxygen Concentration - - Weight 64.4 kg (141 lb 15.6 oz) 025 4:20 PM CDT with shoes Height 162.6 cm (5' 4) 10/16/2024 6:30 PM CDT Body Mass Index 24.37 10/16/2024 6:30 PM CDT Plan of Treatment Upcoming Encounters Date Type Department Care Team (Late st Contact Info) Description 07/18/2025 7:30 AM CDT Hospital Encounter [facility] [address] [place] [address] Karen Vieira MD [address] [place] [address] 07/18/2025 7:30 AM CDT - 07/18/2025 8:00 AM CDT Surgery [facility] [address] [place] [address] Karen Vieira MD [address] [place] [phone] COLONOSCOPY Scheduled Procedures Name Priority Associated Diagnoses Date/Ti me COLONOSCOPY Hx colon cancer 07/18/2025 7:30 AM CDT Health Maintenance Due Date Last Done Comments Hepatitis C Screening 1950 Osteoporosis Screening-Bone Density Scan 1950 DTaP/Tdap/Td Vaccine (1 - Tdap) 10/09/1963 Hepatitis B Screening 1970 Pneumococcal vaccine 65+ (1 of 2 - PCV) 10/09/1971 Zoster Vaccine (1 of 2) 10/09/1971 Breast Cancer Screening-Mammogram 01/25/2015 014 Well Visit 65+ 2017 Depression Screening 10/23/2022 10/23/2021, 01/24/20 19 Covid-19 Vaccine (4 - 2024-2 6 season) 2024 04/09/2021, 07/22/2020, 07/01/2020 Influenza Vaccine (#1) 2024 Fall Risk Assessment 10/18/2025 10/18/2024, 08/21/2024, 10/23/2021, Additional history exists Colon Cancer Screening-Colonoscopy 06/27/2033 06/28/2023, 09/17/2019 Colon Cancer Screening-CT Colonography Discontinued 06/28/2023, 09/17/2019 Colon Cancer Screening-DNA Stool Discontinued 06/28/19 24, 09/17/2019 Colon Cancer Screening-FIT Discontinued 06/28/2023, Colon Cancer Screening-Sigmoidoscopy Discontinued 06/28/2023, 09/17/2019 Medical Devices Implanted Type Area Architectural Design Professor Device Identifier Shelf Expiration Date Model / Serial / Lot Port Right: Chest Description:Rt chest Stents N/A: Heart Description:Cardiac stent x2 Procedures Procedure Name Priority Date/Time Associated Diagnosis Comments US RUQ IP Routine 10/17/2024 10:20 AM CDT HEPATIC FUNCTION PANEL Routine 10/17/2024 4:20 AM CDT EGFR Routine 10/17/2024 4:20 AM CDT DIFFERENTIAL AUTO Routine 10/17/2024 4:2 0 AM CDT CBC WITH AUTO DIFFERENTIAL Routine 10/17/2024 4:20 AM CDT MAGNESIUM Routine 10/17/2024 4:20 AM CDT BASIC METABOLIC PANEL Routine 10/17/2024 4:20 AM CDT IA CRITICAL CARE ILL/INJURED PATIENT INIT 30-74 MIN Routine 10/16/2024 3:[address] CHEST PE ABDOMEN PELVIS W CONTRAST ED 10/16/2024 2:21 PM CDT SEPSIS LACTATE WITH REFLEX STAT 10/16/2024 11:52 AM CDT BLOOD CULTURE STAT 10/16/2024 11:52 AM CDT BLOOD CULTURE STAT 10/16/2024 11:52 AM CDT ECG 12-LEAD STAT 10/16/2024 11:14 AM CDT T4, FREE STAT 10/16/2024 11:12 AM CDT THYROID FUNCTION CASCADE STAT 10/16/2024 11:12 AM CDT EGFR STAT 10/16/2024 11:12 AM CDT URINALYSIS, MICROSCOPIC ONLY STAT 10/16/2024 11:12 AM CDT DIFFERENTIAL AUTO STAT 10/16/2024 11: 12 AM CDT LIPASE STAT 10/16/2024 11:12 AM CDT COMPREHENSIVE METABOLIC PANEL STAT 10/16/2024 11:12 AM CDT CBC WITH AUTO DIFFERENTIAL STAT 10/16/2024 11:12 AM CDT URINALYSIS AND REFLEX TO MICROSCOPIC AND CULTURE STAT 10/16/2024 11:12 AM CDT EGFR Routine 10/03/2024 2:54 PM CDT Malignant neoplasm of sigmoid colon (HCC) DIFFERENTIAL AUTO Routine 10/03/2024 2:5 4 PM CDT Malignant neoplasm of sigmoid colon (HCC) CBC WITH AUTO DIFFERENTIAL Routine 10/03/2024 2:54 PM CDT Malignant neoplasm of sigmoid colon (HCC) COMPREHENSIVE METABOLIC PANEL Routine 10/03/2024 2:54 PM CDT Malignant neoplasm of sigmoid colon (HCC) CEA Routine 10/03/2024 2:54 PM CDT Malignant neoplasm of sigmoid colon (HCC) RAD ONC ARIA SESSION SUMMARY 09/28/2024 12:47 PM CDT EGFR Routine 09/28/2024 10:56 AM CDT CBC WITHOUT DIFFERENTIAL Routine 09/28/2024 10:56 AM CDT COMPREHENSIVE METABOLIC PANEL Routine 09/28/2024 10:56 AM CDT EGFR Routine 09/27/2024 5:20 AM CDT CBC WITHOUT DIFFERENTIAL Routine 09/27/2024 5:20 AM CDT BASIC METABOLIC PANEL Routine 09/27/2024 5:20 AM CDT INCENTIVE SPIROMETRY RT Routine 09/27/2024 3:34 AM CDT INCENTIVE SPIROMETRY RT Routine 09/27/2024 3:34 AM CDT URINALYSIS, MICROSCOPIC ONLY STAT 09/27/2024 1:35 AM CDT URINALYSIS AND REFLEX TO MICROSCOPIC AND CULTURE STAT 09/27/2024 1:[address] RECON THORACIC AND LUMBAR SPINE W CONTRAST ED 09/27/2024 12:[address] CHEST PE ABDOMEN PELVIS W CONTRAST ED 09/27/2024 12:[address] HEAD WO CONTRAST ED 09/27/2024 1 2:57 AM CDT IA CRITICAL CARE ILL/INJURED PATIENT INIT 30-74 MIN Routine 09/26/2024 11:32 PM CDT EGFR STAT 09/26/2024 9:45 PM CDT DIFFERENTIAL AUTO STAT 09/26/2024 9:4 5 PM CDT COMPREHENSIVE METABOLIC PANEL STAT 09/26/2024 9:45 PM CDT CBC WITH AUTO DIFFERENTIAL STAT 09/26/2024 9:45 PM CDT ECG 12-LEAD STAT 09/26/2024 9:35 PM CDT [id number] Routine 09/05/2024 9:17 AM CDT 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) Malignant neoplasm of sigmoid colon (HCC) EGFR Routine 09/05/2024 9:15 AM CDT 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) Malignant neoplasm of sigmoid colon (HCC) DIFFERENTIAL AUTO Routine 09/05/2024 9:1 5 AM CDT 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) Malignant neoplasm of sigmoid colon (HCC) CBC WITH AUTO DIFFERENTIAL Routine 09/05/2024 9:15 AM CDT 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) Malignant neoplasm of sigmoid colon (HCC) COMPREHENSIVE METABOLIC PANEL Routine 09/05/2024 9:15 AM CDT 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) Malignant neoplasm of sigmoid colon (HCC) CEA Routine 09/05/2024 9:15 AM CDT 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) Malignant neoplasm of sigmoid colon (HCC) COLONOSCOPY 06/28/2023 7:44 AM CDT SCREENING MAMMOGRAM 2D BILATERAL Routine 01/25/2014 11:00 AM 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 COMPARISON: CT abdomen and pelvis 10/16/2024 FINDINGS: PANCREAS: Visualized portions of the pancreas are within normal limits. Portions of the pancreatic body and tail are obscured due to bowel gas. LIVER: The liver appears normal in echotexture and echogenicity. No focal lesion identified. The main portal vein is patent with antegrade flow. GALLBLADDER: Cholelithiasis. Trace pericholecystic fluid. No significant gallbladder wall thickening. No positive sonographic [place] sign reported. BILIARY: There is no intrahepatic or extrahepatic biliary ductal dilatation. Common bile duct measures 0.8 cm in diameter. RIGHT KIDNEY: Normal size. Normal echogenicity. No solid mass or cyst. No renal calculi or hydronephrosis. Measures 10.8 cm in length. OTHER: No other significant findings. IMPRESSION: Cholelithiasis. Trace pericholecystic fluid is nonspecific, though this can be seen in the setting of acute cholecystitis. THIS IS AN ELECTRONICALLY VERIFIED FINAL REPORT 10/17/2024 3:24 PM - Electronically signed by Clive Connell M.D. KR: LOUIS Report ID: [id number] Reading Location: [place] [address] Procedure Note Clive Connell MD - 10/17/2024 EXAM DESCRIPTION: US RUQ REASON FOR STUDY: RUQ abdominal pain, biliary disease suspected, US nondiagnostic TECHNIQUE: Ultrasound of the right upper quadrant of the abdomen wasperformed with grayscale and color doppler. COMPARISON: CT abdomen and pelvis 10/16/2024 FINDINGS: PANCREAS: Visualized portions of the pancreas are withinnormal limits. Portions of the pancreatic body and tail are obscured due to bowel gas. LIVER: The liver appears normal in echotexture and echogenicity. Nofocal lesion identified. The main portal vein is patent with antegrade flow. GALLBLADDER: Cholelithiasis. Trace pericholecystic fluid. Nosignificant gallbladder wall thickening. No positive sonographic [place] signreported. BILIARY: There is no intrahepatic or extrahepatic biliary ductaldilatation. Common bile duct measures 0.8 cm in diameter. RIGHT KIDNEY: Normal size. Normal echogenicity. No solid mass or cyst.No renal calculi or hydronephrosis. Measures 10.8 cm in length. OTHER: No other significant findings. IMPRESSION: Cholelithiasis. Trace pericholecystic fluid is nonspecific, though this can be seen in the setting of acute cholecystitis. THIS IS AN ELECTRONICALLY VERIFIED FINAL REPORT 10/17/2024 3:24 PM - Electronically signed by Clive Connell M.D. KR: LOUIS Report ID: [id number] Reading Location: [place] [address] us Ron Murray MD [facility] [place] OCEDURES Final Result * eGFR (10/17/2024 4:20 AM CDT) eGFR >90 >=60 mL/min/1. 73 m2 Comment: Interpretive Data Reference Interval Normal >/= 90 mL/min/1.73m2 Mildly decreased* 60 - 89 mL/min/1.73m2 Mildly to moderately decreased 45 - 59 mL/min/1.73m2 Moderately to severely decreased 30 - 44 mL/min/1.73m2 Severely decreased 15 - 29 mL/min/1.73m2 Kidney Failure < 15 mL/min/1.73m2 *Relative to young adult level Estimated glomerular filtration rate is determined by the 2020 CKD-EPI equation recommended by the National Kid[employer] (A Unifying Approach to GFR Estimation: Recommendations of the NKF-ASK Task Force on Reassessing the Inclusion of Race in Diagnosing Kidney Disease, JASN 2020). The CKD-EPI equation should not be used for patients with unstable renal function and has not been validated in children and those over 70. Current interpretive data was last reviewed 2020. Testing performed by: [address] [address] Blood 10/17/2024 4:20 AM CDT 10/17/2024 5:13 AM CDT us Kaye Rae AUTOMATION TECH LAB BLOOD ORDERABLES Final R esult CAT [address] [facility] [place] [address] * (ABNORMAL) Differential, auto (10/17/2024 4:20 AM CDT) Neutrophil abs 5.57 1.50 - 6.50 K/cumm Comment:Testing performed by : [address] [address] Imm gran abs 0.02 0.00 - 0.10 K/cumm [facility] Comment:Testing performed by : [address] [address] Lymphocyte abs 0.17(L) 0.80 - 3.30 K/cumm [facility] Comment:Testing performed by : [address] [address] Monocyte abs 0.05(L) 0.20 - 0.80 K/cumm [facility] Comment:Testing performed by : [address] [address] Eosinophil abs 0.00 0.00 - 0.50 K/cumm [facility] Comment:Testing performed by : [address] [address] Basophil abs 0.00 0.00 - 0.10 K/cumm [facility] Comment:Testing performed by : [address] [address] Neutrophil pct 95.9 % [facility] Comment: Interpretive Data Percent cell count reference ranges are not reported, since discordance with absolute values may lead to misinterpretation of CBC data. Current Interpretive Data was last revised on 2017. Testing performed by: [address] [address] Imm gran pct 0.3 % [facility] Comment: Interpretive Data Percent cell count reference ranges are not reported, since discordance with absolute values may lead to misinterpretation of CBC data. Current Interpretive Data was last revised on 2017. Testing performed by: [address] [address] Lymphocyte pct 2.9 % [facility] Comment: Interpretive Data Percent cell count reference ranges are not reported, since discordance with absolute values may lead to misinterpretation of CBC data. Current Interpretive Data was last revised on 2017. Testing performed by: [address] [address] Monocyte pct 0.9 % [facility] Comment: Interpretive Data Percent cell count reference ranges are not reported, since discordance with absolute values may lead to misinterpretation of CBC data. Current Interpretive Data was last revised on 2017. Testing performed by: [address] [address] Eosinophil pct 0.0 % [facility] Comment: Interpretive Data Percent cell count reference ranges are not reported, since discordance with absolute values may lead to misinterpretation of CBC data. Current Interpretive Data was last revised on 2017. Testing performed by: [address] [address] Basophil pct 0.0 % [facility] Comment: Interpretive Data Percent cell count reference ranges are not reported, since discordance with absolute values may lead to misinterpretation of CBC data. Current Interpretive Data was last revised on 2017. Testing performed by: [address] [address] Blood 10/17/2024 4:20 AM CDT 10/17/2024 5:14 AM CDT Kaye Rae AUTOMATION TECH LAB BLOOD ORDERABLES Final R esult [facility] [place] [address] * (ABNORMAL) CBC with auto differential (10/17/2024 4:20 AM CDT) Pathologist [facility] [place] WBC 5.81 3.80 - 9.90 K/cumm Comment:Testing performed by : [address] [address] Hgb 12.2 11.9 - 15.5 g/dL [facility] Comment:Testing performed by : [address] [address] Hct 38.1 35.6 - 45.5 % [facility] Comment:Testing performed by : [address] [address] Plt 183 150 - 400 K/cumm [facility] Comment:Testing performed by : [address] [address] MPV 10.8 9.1 - 12.3 fL [facility] Comment:Testing performed by : [address] [address] RBC 4.33 3.90 - 5.20 M/cumm [facility] Comment:Testing performed by : [address] [address] MCV 88.0 81.3 - 96.4 fL [facility] Comment:Testing performed by : [address] [address] MCH 28.2 27.1 - 33.3 pg [facility] Comment:Testing performed by : [address] [address] MCHC 32.0(L) 32.3 - 35.7 g/dL [facility] Comment:Testing performed by : [address] [address] RDW CV 14.3 11.1 - 14.9 % CAT Comment:Testing performed by : [address], [address] RDW SD 45.9 35.7 - 48.1 fL CAT Comment:Testing performed by : [address] [address] NRBC abs 0.00 0.00 - 0.01 K/cumm CAT Comment:Testing performed by : [address] [address] Blood 10/17/2024 4:20 AM CDT 10/17/2024 5:14 AM CDT us Kaye Rae AUTOMATION TECH LAB BLOOD ORDERABLES Final R esult CAT [address] [facility] [place] [address] * Magnesium (10/17/2024 4:20 AM CDT) Magnesium 1.9 1.4 - 2.5 mg/dL Comment:Testing performed by : [address] [address] Blood 10/17/2024 4:20 AM CDT 10/17/2024 5:13 AM CDT us Kaye Rae NP LAB BLOOD ORDERABLES Final R esult CAT [address] Department [place] [address] * (ABNORMAL) Hepatic function panel (10/17/2024 4:20 AM CDT) Bilirubin, total 1.3(H) 0.1 - 1.2 mg/dL Comment:Testing performed by : [address] [address] Bilirubin, direct 0.4(H) 0.1 - 0.3 mg/dL CAT Comment:Testing performed by : [address] [address] Protein, pl 5.5(L) 6.5 - 8.5 g/dL CAT Comment:Testing performed by : [address] [address] Albumin 3.5 3.5 - 5.0 g/dL CAT Comment:Testing performed by : [address] [address] Alk phos 66 40 - 130 Units/L CAT Comment:Testing performed by : [address] [address] ALT 8 7 - 45 Units/L CAT Comment:Testing performed by : [address] [address] AST 10 10 - 45 Units/L CAT Comment:Testing performed by : [address] [address] Blood 10/17/2024 4:20 AM CDT 10/17/2024 5:13 AM CDT us Ron Murray MD LAB BLOOD ORDERABLES Final Result CAT [facility] [place] [address] * (ABNORMAL) Basic metabolic panel (10/17/2024 4:20 AM CDT) Sodium 138 135 - 145 mmol/L Comment:Testing performed by : [address] [address] Potassium, pl 4.2 3.3 - 4.9 mmol/L CAT Comment:Testing performed by : [address], [place]., [address] Chloride 100 97 - 110 mmol/L CAT Comment:Testing performed by : [address] [address] CO2 24 22 - 32 mmol/L CAT Comment:Testing performed by : [address], [place]., [address] Anion gap 14 2 - 15 mmol/L CAT Comment:Testing performed by : [address] [address] BUN 16 6 - 25 mg/dL CAT Comment:Testing performed by : [address] [address] Creatinine 0.70 0.60 - 1.10 mg/dL CAT Comment:Testing performed by : [address] [address] Glucose 243(H) 70 - 199 mg/dL CAT Comment: Delta - Results Reviewed Interpretive Data Fasting glucose >/= 126 mg/dl is diagnostic for diabetes. Fasting is defined as no caloric intake for at least 8 hours. Fasting glucose between 100 mg/dl to 125 mg/dl is diagnostic of prediabetes. In a patient with classic symptoms of hyperglycemia or hyperglycemic crisis, a random glucose >/= 200 mg/dl is diagnostic for diabetes. In the absence of unequivocal hyperglycemia, results should be confirmed by repeat testing. The classification and Diagnosis of Diabetes Diabetes Care 202; 46: S19-S40. Current interpretive data was last revised 2022. Testing performed by: [address] [address] Calcium 8.9 8.5 - 10.3 mg/dL CAT Comment:Testing performed by : [facility], [address] [place] [address], [place]., [address] Blood 10/17/2024 4:20 AM CDT 10/17/2024 5:13 AM CDT us Kaye Rae AUTOMATION TECH LAB BLOOD ORDERABLES Final R esult CAT [address] [facility] [place] [address] * IA CRITICAL CARE ILL/INJURED PATIENT INIT 30-74 MIN (10/16/2024 3:56 PM CDT) Narrative Sera Chacon MD - 10/16/2024 3:56 PM CDT Sera Chacon MD 10/16/2024 3:56 PM Critical Care Performed by: Sera Chacon MD Authorized by: Sera Chacon MD Critical care provider statement: As reflected in the history, physical exam, orders, notes, and/or MDM, I was personally present while the patient was critically ill and provided critical care services for 35 minutes, excluding time involved in separately billable procedures. Critical care was necessary to treat or prevent imminent or life-threatening deterioration of the following condition(s): atrial fibrillation dehydration Critical care was time spent by me providing the following: continuous telemetry, continuous pulse oximetry, interpretation of bedside monitors, imaging, and arterial/venous lab draws, serial bedside patient exams and resuscitation with fluids initiation of rate controlling agent I provided emergent necessary critical care medicine services to this patient. I ordered and reviewed test results and/or imaging studies. I spent time discussing the management of this critically ill patient with consultants and the medical staff. I spent time discussing the management and therapeutic options for this critically ill patient with the patient themselves or with the appropriate designated surrogate decision-maker. I spent time documenting in the medical record. I admitted this patient to a continuous cardiac monitored bed. us Sera Chacon MD IN CLINIC/BEDSIDE ORDERABLES Fi nal Result * CT Chest PE (CTA) Abdomen Pelvis W Contrast (10/16/2024 2:21 PM CDT) Anatomical Region Laterality Modality Body N/A Computed Tomogra phy 10/16/2024 3:17 PM CDT Narrative 10/16/2024 3:36 PM CDT EXAM DESCRIPTION: CT CHEST PE (CTA) ABDOMEN PELVIS W CONTRAST REASON FOR STUDY: Tachycardia with shortness of breath and vomiting. Unable to eat 4 days. History of colon cancer with lung metastases. Weight loss. TECHNIQUE: CT angiogram of the chest with routine abdomen and pelvis performed with intravenous and without oral contrast using helical scanning technique with dynamic intravenous contrast injection. Reconstructed coronal and sagittal MPR images reviewed. All images stored on PACS. 3D MIP images of the chest rendered on scanning unit and reviewed at time of interpretation. Automated exposure control was used as a dose optimization technique for this examination. CONTRAST TYPE/DOSE: 100mL of IOVERSOL 350 MG IODINE/ML INTRAVENOUS SYRINGE injected via intravenous COMPARISON: CT chest, abdomen, pelvis 09/27/2024 , 12/11/2021 FINDINGS: CHEST VASCULATURE: No definite pulmonary embolism is seen. No thoracic aortic aneurysm. LUNGS: Pleural-based lesion in the posterior right upper lobe measuring 2.3 cm (image 43) is unchanged. Postsurgical changes in the right lung are grossly similar. Nodule in the medial right lower lung measuring 1.6 cm (image 79) is unchanged. Subpleural noncalcified 6 mm nodule is unchanged (image 63) in the right lateral lung. Subpleural noncalcified 7 mm nodule in the anterior right lung (image 47) is unchanged. Other right upper lung nodules are grossly similar. Noncalcified 4 mm nodule in the left lower lobe (image 83) is unchanged. Noncalcified 7 mm nodule in the lateral left upper lobe (image 48) is unchanged. Other scattered lung nodules in the left lung are unchanged. Debris within the right lower lobe bronchus is unchanged. PLEURAE: No pneumothorax. Small right pleural effusion is unchanged. MEDIASTINUM/ERICH: Right suprahilar lymph node measuring 1.8 cm is unchanged. Subcarinal lymphadenopathy is unchanged. The esophagus is patulous with debris. HEART: Heart size is within normal limits. No pericardial effusion. Moderate coronary artery calcification. AXILLAE: No lymphadenopathy. CHEST WALL: No masses. No subcutaneous air. HARDWARE/LINES/TUBES: Right chest port tip terminates at the mid SVC. MUSCULOSKELETAL: Expansile destructive lytic lesion involving the right posterior 6th rib is grossly similar. Mild thoracic spondylosis. Subcentimeter area of sclerosis in the posterior T4 vertebral body is grossly similar to 2022. ABDOMEN/PELVIS LIVER: No focal liver lesion. GALLBLADDER: Large gallstones are present. Mild gallbladder wall thickening. BILE DUCTS: Trace intrahepatic biliary ductal prominence with a 7 mm common duct distally. This appearance is unchanged.. SPLEEN: Normal size. No focal lesions. PANCREAS: No masses. No adjacent inflammation or peripancreatic fluid collections. No pancreatic ductal dilatation. ADRENALS: Normal. KIDNEYS/URINARY TRACT: Cyst in the lower pole of the right kidney requires no specific follow-up. No hydronephrosis. The bladder is decompressed and incompletely evaluated. GI: Suture material within the sigmoid colon. The appendix is not seen with certainty. No pericecal inflammatory change. No bowel obstruction. Fat containing hernia in the lower anterior abdominal wall containing loop of nonobstructed small bowel is noted. PERITONEUM: No ascites or free air. RETROPERITONEUM: No mass or lymphadenopathy. REPRODUCTIVE: No significant abnormality. VASCULATURE: No abdominal aortic aneurysm. MUSCULOSKELETAL: Mild lumbar spondylosis. 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 OTHER: No other abnormality. IMPRESSION: 1. No definite pulmonary embolism is seen. 2. Grossly stable appearance of the chest with multiple bilateral pulmonary nodules and masses. 3. Stable mediastinal and right hilar lymphadenopathy. 4. Stable small right pleural effusion. 5. Stable expansile destructive lytic lesion involving the right posterior 6th rib. 6. Cholelithiasis with mild gallbladder wall thickening. If there is clinical concern for cholecystitis, consider HIDA study. THIS IS AN ELECTRONICALLY VERIFIED FINAL REPORT 10/16/2024 3:36 PM - Electronically signed by Keenan Lara M.D. LB: DIAZ Report ID: [id number] Reading Location: [id number] Procedure Note Keenan Lara MD - 10/16/2024 EXAM DESCRIPTION: CT CHEST PE (CTA) ABDOMEN PELVIS W CONTRAST REASON FOR STUDY: Tachycardia with shortness of breath and vomiting.Unable to eat 4 days. History of colon cancer with lung metastases. Weightloss. TECHNIQUE: CT angiogram of the chest with routine abdomen and pelvisperformed with intravenous and without oral contrast using helical scanningtechnique with dynamic intravenous contrast injection. Reconstructed coronal and sagittal MPR images reviewed. All images stored on PACS. 3D MIP images ofthe chest rendered on scanning unit and reviewed at time of interpretation. Automated exposure control was used as a dose optimization technique forthis examination. CONTRAST TYPE/DOSE: 100mL of IOVERSOL 350 MG IODINE/ML INTRAVENOUS SYRINGE injected via intravenous COMPARISON: CT chest, abdomen, pelvis 09/27/2024 , 12/11/2021 FINDINGS: CHEST VASCULATURE: No definite pulmonary embolism is seen. No thoracic aortic aneurysm. LUNGS: Pleural-based lesion in the posterior right upper lobe measuring2.3 cm (image 43) is unchanged. Postsurgical changes in the right lung are grossly similar. Nodule in the medial right lower lung measuring 1.6 cm (image 79) is unchanged. Subpleural noncalcified 6 mm nodule is unchanged (image 63) in the right lateral lung. Subpleural noncalcified 7 mm nodulein the anterior right lung (image 47) is unchanged. Other right upper lung nodules are grossly similar. Noncalcified 4 mm nodule in the left lowerlobe (image 83) is unchanged. Noncalcified 7 mm nodule in the lateral leftupper lobe (image 48) is unchanged. Other scattered lung nodules in the leftlung are unchanged. Debris within the right lower lobe bronchus is unchanged. PLEURAE: No pneumothorax. Small right pleural effusion is unchanged. MEDIASTINUM/ERICH: Right suprahilar lymph node measuring 1.8 cm isunchanged. Subcarinal lymphadenopathy is unchanged. The esophagus is patulouswith debris. HEART: Heart size is within normal limits. No pericardial effusion. Moderate coronary artery calcification. AXILLAE: No lymphadenopathy. CHEST WALL: No masses. No subcutaneous air. HARDWARE/LINES/TUBES: Right chest port tip terminates at the mid SVC. MUSCULOSKELETAL: Expansile destructive lytic lesion involving the right posterior 6th rib is grossly similar. Mild thoracic spondylosis. Subcentimeter area of sclerosis in the posterior T4 vertebral body isgrossly similar to 2021. ABDOMEN/PELVIS LIVER: No focal liver lesion. GALLBLADDER: Large gallstones are present. Mild gallbladder wall thickening. BILE DUCTS: Trace intrahepatic biliary ductal prominence with a 7 mmcommon duct distally. This appearance is unchanged.. SPLEEN: Normal size. No focal lesions. PANCREAS: No masses. No adjacent inflammation or peripancreatic fluid collections. No pancreatic ductal dilatation. ADRENALS: Normal. KIDNEYS/URINARY TRACT: Cyst in the lower pole of the right kidneyrequires no specific follow-up. No hydronephrosis. The bladder is decompressedand incompletely evaluated. GI: Suture material within the sigmoid colon. The appendix is not seenwith certainty. No pericecal inflammatory change. No bowel obstruction. Fat containing hernia in the lower anterior abdominal wall containing loop of nonobstructed small bowel is noted. PERITONEUM: No ascites or free air. RETROPERITONEUM: No mass or lymphadenopathy. REPRODUCTIVE: No significant abnormality. VASCULATURE: No abdominal aortic aneurysm. MUSCULOSKELETAL: Mild lumbar spondylosis. Tarlov cysts at the level ofS3 are unchanged. OTHER: No other abnormality. IMPRESSION: 1. No definite pulmonary embolism is seen. 2. Grossly stable appearance of the chest with multiple bilateralpulmonary nodules and masses. 3. Stable mediastinal and right hilar lymphadenopathy. 4. Stable small right pleural effusion. 5. Stable expansile destructive lytic lesion involving the rightposterior 6th rib. 6. Cholelithiasis with mild gallbladder wall thickening. If there is clinical concern for cholecystitis, consider HIDA study. THIS IS AN ELECTRONICALLY VERIFIED FINAL REPORT 10/16/2024 3:36 PM - Electronically signed by Keenan Lara M.D. LB: DIAZ Report ID: [id number] Reading Location: [place] [address] [facility] [address] PROCEDURES Final Result * Sepsis Lactate w/ Reflex (10/16/2024 11:52 AM CDT) Sepsis Lactate 1.8 0.7 - 2.0 mmol/L Comment:Testing performed by : [facility], [address] [place] [address]., [id number] Blood 10/16/2024 11:5 2 AM CDT 10/16/2024 11:59 AM CDT Rehab [facility] LAB BLOOD ORDERABLES Final Resu lt CAT [facility] [address] [facility] [place] [address] * Blood culture Blood (10/16/2024 11:52 AM CDT) Report Final Report: No growth Comment:Testing performed by : [facility], [address] [facility], [place] [address] Blood 10/16/2024 11:5 2 AM CDT 10/16/2024 4:27 PM CDT Narrative CAT MATHEWS - 10/21/2024 7:00 AM CDT Collection->Peripheral 1. Blood cultures are incubated for 4 days on a continuously monitored blood culture system. The first report of a negative culture is issued within 24 hours of receipt of the specimen in the laboratory. 2. Positive culture results are reported as soon as they are detected. 3. The most important factor for detection of microbes in the setting of bloodstream infection is the volume of blood submitted for culture. Failure to collect an optimal blood volume can result in false negative blood cultures. 4. For pediatric patients, the recommended blood volume to collect follows a weight based strategy. See the electronic test catalog for collection instructions. 5. For positive blood cultures, a rapid molecular test may be performed for organism identification using the [employer] blood culture identification panel for gram positive (BCID-GP) and gram negative (BCID-GN) organisms. This nucleic acid amplification test detects microbial DNA in positive blood culture broth. This assay has been cleared by the [place] Food and Drug Administration and its performance characteristics have been verified by the [facility]. For questions about this culture, contact the Microbiology Laboratory at [phone]. Interpretive data was last revised on 23. us [facility] LAB MICROBIOLOGY - GENERAL GRIFFIN CISSE Final Result CAT [address] [facility] [place] [address] * Blood culture Blood (10/16/2024 11:52 AM CDT) Report Final Report: No growth Comment:Testing performed by : [facility], [address] [facility], [place]., [address] Blood 10/16/2024 11:5 2 AM CDT 10/16/2024 4:27 PM CDT Mohsen MATHEWS - 10/21/2024 7:00 AM CDT Collection->Peripheral 1. Blood cultures are incubated for 4 days on a continuously monitored blood culture system. The first report of a negative culture is issued within 24 hours of receipt of the specimen in the laboratory. 2. Positive culture results are reported as soon as they are detected. 3. The most important factor for detection of microbes in the setting of bloodstream infection is the volume of blood submitted for culture. Failure to collect an optimal blood volume can result in false negative blood cultures. 4. For pediatric patients, the recommended blood volume to collect follows a weight based strategy. See the electronic test catalog for collection instructions. 5. For positive blood cultures, a rapid molecular test may be performed for organism identification using the honorio ePlex blood culture identification panel for gram positive (BCID-GP) and gram negative (BCID-GN) organisms. This nucleic acid amplification test detects microbial DNA in positive blood culture broth. This assay has been cleared by the [place] Food and Drug Administration and its performance characteristics have been verified by the [facility]. For questions about this culture, contact the Microbiology Laboratory at [phone]. Interpretive data was last revised on 23. Rehab Oswaldo GOEL LAB MICROBIOLOGY - [facility] Final Result CAT [address] [facility] [place] [address] * ECG 12 lead (10/16/2024 11:14 AM CDT) Ventricular Rate EKG/Min 150 BPM [facility] Atrial Rate [address] [facility] QRS-Interval (MSEC) [address] [facility] QT-Interval (MSEC) 298 ms [facility] QTc [address] [facility] R Somers -9 degrees [facility] T Somers [address] [facility] Diagnosis Atrial fibrillation with rapid ventricular response with premature ventricular or aberrantly conducted complexes Voltage criteria for left ventricular hypertrophy Marked ST abnormality, possible inferior subendocardial injury Abnormal ECG When compared with ECG of 26-SEP-2024 21:35, Atrial fibrillation has replaced Sinus rhythm Vent. rate has increased BY 68 BPM Minimal criteria for Septal infarct are now Present Confirmed by SULTAN GRANADO M.D. ([id number]) on 10/16/2024 3:48:51 PM [facility] 10/16/2024 11:1 4 AM CDT 10/16/2024 3:48 PM CDT Rehab Oswaldo GOEL ECG ORDERABLES Final Result Performing Organization Address [facility] Co de Phone Number [facility] * eGFR (10/16/2024 11:12 AM CDT) eGFR 68 >=60 mL/min/1. 73 m2 Comment: Interpretive Data Reference Interval Normal >/= 90 mL/min/1.73m2 Mildly decreased* 60 - 89 mL/min/1.73m2 Mildly to moderately decreased 45 - 59 mL/min/1.73m2 Moderately to severely decreased 30 - 44 mL/min/1.73m2 Severely decreased 15 - 29 mL/min/1.73m2 Kidney Failure < 15 mL/min/1.73m2 *Relative to young adult level Estimated glomerular filtration rate is determined by the 2020 CKD-EPI equation recommended by the National Kidney Foundation (A Unifying Approach to GFR Estimation: Recommendations of the NKF-ASK Task Force on Reassessing the Inclusion of Race in Diagnosing Kidney Disease, JASN 2020). The CKD-EPI equation should not be used for patients with unstable renal function and has not been validated in children and those over 70. Current interpretive data was last reviewed 2020. Testing performed by: [facility], [address] [place] [address], [place]., [address] Blood 10/16/2024 11:1 2 AM CDT 10/16/2024 11:16 AM CDT Sera Chacon MD LAB BLOOD ORDERABLES Final Resu lt CAT [address] [facility] [place] [address] * (ABNORMAL) Differential, auto (10/16/2024 11:12 AM CDT) Neutrophil abs 9.46(H) 1.50 - 6.50 K/cumm Comment:Testing performed by : [address] [address] Imm gran abs 0.07 0.00 - 0.10 K/cumm CAT Comment:Testing performed by : [address] [address] Lymphocyte abs 1.09 0.80 - 3.30 K/cumm CAT Comment:Testing performed by : [address] [address] Monocyte abs 1.07(H) 0.20 - 0.80 K/cumm CAT Comment:Testing performed by : [address] [address] Eosinophil abs 0.12 0.00 - 0.50 K/cumm CAT Comment:Testing performed by : [address] [address] Basophil abs 0.03 0.00 - 0.10 K/cumm CAT Comment:Testing performed by : [address] [address] Neutrophil pct 79.9 % CAT Comment: Interpretive Data Percent cell count reference ranges are not reported, since discordance with absolute values may lead to misinterpretation of CBC data. Current Interpretive Data was last revised on 2017. Testing performed by: [address] [address] Imm gran pct 0.6 % CAT Comment: Interpretive Data Percent cell count reference ranges are not reported, since discordance with absolute values may lead to misinterpretation of CBC data. Current Interpretive Data was last revised on 2017. Testing performed by: [address] [address] Lymphocyte pct 9.2 % CAT Comment: Interpretive Data Percent cell count reference ranges are not reported, since discordance with absolute values may lead to misinterpretation of CBC data. Current Interpretive Data was last revised on 2017. Testing performed by: [address] [address] Monocyte pct 9.0 % [facility] Comment: Interpretive Data Percent cell count reference ranges are not reported, since discordance with absolute values may lead to misinterpretation of CBC data. Current Interpretive Data was last revised on 2017. Testing performed by: [address] [address] Eosinophil pct 1.0 % [facility] Comment: Interpretive Data Percent cell count reference ranges are not reported, since discordance with absolute values may lead to misinterpretation of CBC data. Current Interpretive Data was last revised on 2017. Testing performed by: [address] [address] Basophil pct 0.3 % [facility] Comment: Interpretive Data Percent cell count reference ranges are not reported, since discordance with absolute values may lead to misinterpretation of CBC data. Current Interpretive Data was last revised on 2017. Testing performed by: [address] [address] Blood 10/16/2024 11:1 2 AM CDT 10/16/2024 11:16 AM CDT Rehab Oswaldo GOEL LAB BLOOD ORDERABLES Final Resu lt CAT [address] [facility] [place] [address] * (ABNORMAL) Thyroid Function [place] (10/16/2024 11:12 AM CDT) TSH 0.02(L) 0.30 - 4.20 mcIUnit/mL Comment:Testing performed by : [address] [address] Blood 10/16/2024 11:1 2 AM CDT 10/16/2024 11:16 AM CDT us Rehab Oswaldo GOEL LAB BLOOD ORDERABLES Final Resu lt CAT 450 [facility] [place] [address] * (ABNORMAL) Urinalysis reflex to microscopic and culture Urine (10/16/2024 11:12 AM CDT) Color, ur Yellow Yellow Comment:Testing performed by : [address] [address] Clarity, ur Clear Clear CAT Comment:Testing performed by : [address] [address] Specific gravity, ur 1.026 1.003 - 1.030 CAT Comment:Testing performed by : [address] [address] pH, urine 6.0 CAT Comment: Interpretive Data U rine pH is affected by diet, medications, systemic acid-base disturbances, and renal tubular function. pH may affect urinary stone formation. For example, urine pH below 6.0 may help reduce the tendency for calcium phosphate stones and pH greater than 6.0 may reduce the tendency for uric acid stone formation. Source: [facility] adjust Current Interpretive Data was last revised on 2017 Testing performed by: [address] [address] Protein, ur ql Trace(A) Negative CAT MATHEWS Comment:Testing performed by : [address] [address] Glucose, ur ql Negative Negative CAT Comment:Testing performed by : [address] [address] Ketones, ur Negative Negative CAT Comment:Testing performed by : [address] [address] Bilirubin, ur Negative Negative CAT MATHEWS Comment:Testing performed by : [address] [address] Blood, ur Negative Negative CAT Comment:Testing performed by : [address] [address] Urobilinogen, ur <2.0 <2.0 mg/dL CAT MATHEWS Comment:Testing performed by : [address] [address] Nitrite, ur Negative Negative CAT MATHEWS Comment:Testing performed by : [address] [address] Leukocyte esterase, ur Negative Negative CAT MATHEWS Comment:Testing performed by : [address] [address] UA reflex comment Reflex to microscopic UA will be performed. CAT MATHEWS Comment:Testing performed by : [address] [address] Urine 10/16/2024 11:1 2 AM CDT 10/16/2024 11:16 AM CDT Rehab Oswaldo GOEL LAB MICROBIOLOGY - [facility] GRIFFIN CISSE Final Result CAT MATHEWS [facility] [place] [address] * (ABNORMAL) CBC with auto differential (10/16/2024 11:12 AM CDT) WBC 11.84(H) 3.80 - 9.90 K/cumm Comment:Testing performed by : [address] [address] Hgb 13.9 11.9 - 15.5 g/dL CAT MATHEWS Comment:Testing performed by : [address] [address] Hct 43.8 35.6 - 45.5 % CAT MATHEWS Comment:Testing performed by : [address] [address] Plt 209 150 - 400 K/cumm CAT MATHEWS Comment:Testing performed by : [address] [address] MPV 9.9 9.1 - 12.3 fL CAT MATHWES Comment:Testing performed by : [address] [address] RBC 4.96 3.90 - 5.20 M/cumm CAT MATHEWS Comment:Testing performed by : [address] [address] MCV 88.3 81.3 - 96.4 fL CAT MATHEWS Comment:Testing performed by : [address] [address] MCH 28.0 27.1 - 33.3 pg CAT MATHEWS Comment:Testing performed by : [address] [address] MCHC 31.7(L) 32.3 - 35.7 g/dL CAT MATHEWS Comment:Testing performed by : [address] [address] RDW CV 14.4 11.1 - 14.9 % CAT MATHEWS Comment:Testing performed by : [address] [address] RDW SD 46.3 35.7 - 48.1 fL CAT MATHEWS Comment:Testing performed by : [address] [address] NRBC abs 0.00 0.00 - 0.01 K/cumm CAT MATHEWS Comment:Testing performed by : [address] [address] Blood Venous blood specimen / Unknown 10/16/2024 11:12 AM CDT 10/16/2024 11:16 AM CDT us Rehab Oswaldo GOLE LAB BLOOD ORDERABLES Final Resu lt CAT 655[address] [facility] [place] [address] * (ABNORMAL) Urinalysis, microscopic only (10/16/2024 11:12 AM CDT) WBC, ur 0-5 0 - 5 /HPF Comment:Testing performed by : [address] [address] RBC, ur 0-2 0 - 2 /HPF CAT MATHEWS Comment:Testing performed by : [address] [address] Epithelial cells, squamous, ur 21-50(A) 0 - 5 /HPF CAT Comment:Testing performed by : [address] [address] Bacteria, ur 1+(A) CAT Comment:Testing performed by : [address] [address] Mucous, ur Present(A) CAT Comment:Testing performed by : [address] [address] Culture Reflex Comment Reflex conditions for urine culture (WBC >10) not met. CAT Comment:Testing performed by : [address] [address] Urine 10/16/2024 11:1 2 AM CDT 10/16/2024 11:16 AM CDT [facility] URINE ORDERABLES Final Resu lt Performing Organization Address [facility] de Phone Number [address] [place] [address] * (ABNORMAL) T4, free (10/16/2024 11:12 AM CDT) [facility] Free T4 2.81(H) 0.90 - 1.70 ng/dL Comment:Testing performed by : [address] [address] Blood 10/16/2024 11:1 2 AM CDT 10/16/2024 11:16 AM CDT Narrative CAT - 10/16/2024 12:50 PM CDT This test was reflexed from a TSH result. [facility] LAB BLOOD ORDERABLES Final Resu lt Performing Organization Address [facility] de Phone Number [address] [place] [address] * Lipase (10/16/2024 11:12 AM CDT) [facility] Lipase 12 10 - 99 Units/L Comment:Testing performed by : [address] [address] Blood Venous blood specimen / Unknown 10/16/2024 11:12 AM CDT 10/16/2024 11:16 AM CDT us Rehab Oswaldo GOEL LAB BLOOD ORDERABLES Final Resu lt [facility] [address] [facility] [place] [address] * (ABNORMAL) Comprehensive metabolic panel (10/16/2024 11:12 AM CDT) Sodium 142 135 - 145 mmol/L Comment:Testing performed by : [address] [address] Potassium, pl 3.8 3.3 - 4.9 mmol/L CAT Comment:Testing performed by : [address] [address] Chloride 100 97 - 110 mmol/L CAT Comment:Testing performed by : [address] [address] CO2 29 22 - 32 mmol/L CAT Comment:Testing performed by : [address] [address] Anion gap 13 2 - 15 mmol/L CAT Comment:Testing performed by : [address] [address] BUN 25 6 - 25 mg/dL CAT Comment:Testing performed by : [address] [address] Creatinine 0.90 0.60 - 1.10 mg/dL CAT Comment:Testing performed by : [address] [address] Glucose 142 70 - 199 mg/dL CAT Comment: Interpretive Data Fasting glucose >/= 126 mg/dl is diagnostic for diabetes. Fasting is defined as no caloric intake for at least 8 hours. Fasting glucose between 100 mg/dl to 125 mg/dl is diagnostic of prediabetes. In a patient with classic symptoms of hyperglycemia or hyperglycemic crisis, a random glucose >/= 200 mg/dl is diagnostic for diabetes. In the absence of unequivocal hyperglycemia, results should be confirmed by repeat testing. The classification and Diagnosis of Diabetes Diabetes Care 202; 46: S19-S40. Current interpretive data was last revised 2022. Testing performed by: [address] [address] Calcium 10.3 8.5 - 10.3 mg/dL CAT Comment:Testing performed by : [address] [address] Bilirubin, total 2.1(H) 0.1 - 1.2 mg/dL CAT Comment:Testing performed by : [address] [address] Protein, pl 7.1 6.5 - 8.5 g/dL CAT Comment:Testing performed by : [address] [address] Albumin 4.2 3.5 - 5.0 g/dL CAT Comment:Testing performed by : [address] [address] Alk phos 77 40 - 130 Units/L CAT Comment:Testing performed by : [address] [address] ALT 11 7 - 45 Units/L CAT Comment:Testing performed by : [address] [address] AST 17 10 - 45 Units/L CAT Comment:Testing performed by : [address] [address] Blood 10/16/2024 11:1 2 AM CDT 10/16/2024 11:16 AM CDT us Rehab Oswaldo GOEL LAB BLOOD ORDERABLES Final Resu lt CAT MATHEWS [address] [facility] of [facility] [place], [place] [id number] * eGFR (10/03/2024 2:54 PM CDT) eGFR 79 >=60 mL/min/1. 73 m2 Comment: Interpretive Data Reference Interval Normal >/= 90 mL/min/1.73m2 Mildly decreased* 60 - 89 mL/min/1.73m2 Mildly to moderately decreased 45 - 59 mL/min/1.73m2 Moderately to severely decreased 30 - 44 mL/min/1.73m2 Severely decreased 15 - 29 mL/min/1.73m2 Kidney Failure < 15 mL/min/1.73m2 *Relative to young adult level Estimated glomerular filtration rate is determined by the 2020 CKD-EPI equation recommended by the National Kidney Foundation (A Unifying Approach to GFR Estimation: Recommendations of the NKF-ASK Task Force on Reassessing the Inclusion of Race in Diagnosing Kidney Disease, JASN 202). The CKD-EPI equation should not be used for patients with unstable renal function and has not been validated in children and those over 70. Current interpretive data was last reviewed 2020. Testing performed by: [address] [address] Blood 10/03/2024 2:54 PM CDT 10/03/2024 2:58 PM CDT us Nathan Kaye DO LAB BLOOD ORDERABLES Final R esult CAT 27[address] [facility] [place] [address] * Differential, auto (10/03/2024 2:54 PM CDT) Neutrophil abs 5.88 1.50 - 6.50 K/cumm Comment:Testing performed by : [address] [address] Imm gran abs 0.04 0.00 - 0.10 K/cumm CAT Comment:Testing performed by : [address] [address] Lymphocyte abs 1.11 0.80 - 3.30 K/cumm CAT Comment:Testing performed by : [address] [address] Monocyte abs 0.56 0.20 - 0.80 K/cumm CAT Comment:Testing performed by : [address] [address] Eosinophil abs 0.07 0.00 - 0.50 K/cumm CAT Comment:Testing performed by : [address] [address] Basophil abs 0.02 0.00 - 0.10 K/cumm CAT Comment:Testing performed by : [address] [address] Neutrophil pct 76.5 % [facility] Comment: Interpretive Data Percent cell count reference ranges are not reported, since discordance with absolute values may lead to misinterpretation of CBC data. Current Interpretive Data was last revised on 2017. Testing performed by: [address] [address] Imm gran pct 0.5 % [facility] Comment: Interpretive Data Percent cell count reference ranges are not reported, since discordance with absolute values may lead to misinterpretation of CBC data. Current Interpretive Data was last revised on 2017. Testing performed by: [address] [address] Lymphocyte pct 14.5 % [facility] Comment: Interpretive Data Percent cell count reference ranges are not reported, since discordance with absolute values may lead to misinterpretation of CBC data. Current Interpretive Data was last revised on 2017. Testing performed by: [address] [address] Monocyte pct 7.3 % [facility] Comment: Interpretive Data Percent cell count reference ranges are not reported, since discordance with absolute values may lead to misinterpretation of CBC data. Current Interpretive Data was last revised on 2017. Testing performed by: [address] [address] Eosinophil pct 0.9 % [facility] Comment: Interpretive Data Percent cell count reference ranges are not reported, since discordance with absolute values may lead to misinterpretation of CBC data. Current Interpretive Data was last revised on 2017. Testing performed by: [address] [address] Basophil pct 0.3 % [facility] Comment: Interpretive Data Percent cell count reference ranges are not reported, since discordance with absolute values may lead to misinterpretation of CBC data. Current Interpretive Data was last revised on 2017. Testing performed by: [address] [address] Blood 10/03/2024 2:54 PM CDT 10/03/2024 2:58 PM CDT us Nathan Kaye DO LAB BLOOD ORDERABLES Final R esult [facility] [address] [facility] [place], [place] [id number] * CBC with auto differential (10/03/2024 2:54 PM CDT) WBC 7.68 3.80 - 9.90 K/cumm Comment:Testing performed by : [address] [address] Hgb 12.4 11.9 - 15.5 g/dL CAT Comment:Testing performed by : [address] [address] Hct 38.0 35.6 - 45.5 % CTA Comment:Testing performed by : [address] [address] Plt 251 150 - 400 K/cumm CAT Comment:Testing performed by : [address] [address] MPV 10.1 9.1 - 12.3 fL CAT Comment:Testing performed by : [address] [address] RBC 4.36 3.90 - 5.20 M/cumm CAT Comment:Testing performed by : [address] [address] MCV 87.2 81.3 - 96.4 fL CAT Comment:Testing performed by : [address] [address] MCH 28.4 27.1 - 33.3 pg CAT MATHEWS Comment:Testing performed by : [address] [address] MCHC 32.6 32.3 - 35.7 g/dL CAT Comment:Testing performed by : [address] [address] RDW CV 13.7 11.1 - 14.9 % CAT Comment:Testing performed by : [address] [address] RDW SD 44.0 35.7 - 48.1 fL CAT Comment:Testing performed by : [address] [address] NRBC abs 0.00 0.00 - 0.01 K/cumm CAT Comment:Testing performed by : [address] [address] ANC Prelim 5.88 1.50 - 6.50 K/cumm CAT Comment: Interpretive Data The rapid ANC is a preliminary automated count and may vary from the final ANC (Neut Abs) reported in the WBC differential that follows. Current interpretive data was last revised 2024. Testing performed by: [address] [address] Blood 10/03/2024 2:54 PM CDT 10/03/2024 2:58 PM CDT Nathan Kaye DO LAB BLOOD ORDERABLES Final R esult Performing Organization Address City/State/[place] Co de Phone Number CAT [address] [facility] [place] [address] * (ABNORMAL) CEA (10/03/2024 2:54 PM CDT) [facility] Signature CEA 25.3(H) <=5.0 ng/mL Comment: Interpretive Data: Reference Range: Non-Smokers: 0.0 5.0 ng/mL Smokers: 0.0 6.5 ng/mL The Yuly CEA assay procedure was used. Results from different manufacturers or methods may not be comparable. Serial testing should be performed using the same method. Current interpretive data was last revised 2022. Testing performed by: [address] [address] Blood 10/03/2024 2:54 PM CDT 10/03/2024 4:17 PM CDT Nathan Kaye DO LAB BLOOD ORDERABLES Final R esult [facility] [address] [facility] [place] [address] * (ABNORMAL) Comprehensive metabolic panel (10/03/2024 2:54 PM CDT) Sodium 142 135 - 145 mmol/L Comment:Testing performed by : [address] [address] Potassium, pl 3.7 3.3 - 4.9 mmol/L CAT Comment:Testing performed by : [address] [address] Chloride 104 97 - 110 mmol/L CAT Comment:Testing performed by : [address] [address] CO2 28 22 - 32 mmol/L CAT Comment:Testing performed by : [address] [address] Anion gap 10 2 - 15 mmol/L CAT Comment:Testing performed by : [address] [address] BUN 13 6 - 25 mg/dL CAT Comment:Testing performed by : [address] [address] Creatinine 0.80 0.60 - 1.10 mg/dL CAT Comment:Testing performed by : [address] [address] Glucose 136 70 - 199 mg/dL CAT Comment: Interpretive Data Fasting glucose >/= 126 mg/dl is diagnostic for diabetes. Fasting is defined as no caloric intake for at least 8 hours. Fasting glucose between 100 mg/dl to 125 mg/dl is diagnostic of prediabetes. In a patient with classic symptoms of hyperglycemia or hyperglycemic crisis, a random glucose >/= 200 mg/dl is diagnostic for diabetes. In the absence of unequivocal hyperglycemia, results should be confirmed by repeat testing. The classification and Diagnosis of Diabetes Diabetes Care 202; 46: S19-S40. Current interpretive data was last revised 2022. Testing performed by: [address] [address] Calcium 8.3(L) 8.5 - 10.3 mg/dL CAT Comment:Testing performed by : [address] [address] Bilirubin, total 1.0 0.1 - 1.2 mg/dL CAT Comment:Testing performed by : [address] [address] Protein, pl 6.2(L) 6.5 - 8.5 g/dL CAT Comment:Testing performed by : [address] [address] Albumin 3.7 3.5 - 5.0 g/dL CAT Comment:Testing performed by : [address] [address] Alk phos 76 40 - 130 Units/L CAT Comment:Testing performed by : [address] [address] ALT 7 7 - 45 Units/L CAT Comment:Testing performed by : [address] [address] AST 11 10 - 45 Units/L CAT Comment:Testing performed by : [address] [address] Blood 10/03/2024 2:54 PM CDT 10/03/2024 2:58 PM CDT us Nathan Kaye DO LAB BLOOD ORDERABLES Final R esult CAT MATHEWS [address] [facility] [place] [address] * RAD ONC ARIA SESSION SUMMARY (09/28/2024 12:47 PM CDT) Course Name [id number] ARIA Course Plan Date 09/28/2024 9:32 AM ARIA Elapsed Days 0 ARIA Treatment Start Date 09/28/2024 ARIA Treatment Site RIGHT CW_DPV ARIA Dose Given To Date (cGy) 800 ARIA Session Dosage Given (cGy) 800 ARIA Plan ID RT [place]ST[place]ALL ARIA Fractions Treated 1 ARIA Prescribed Dose Per Fraction (cGy) 800 ARIA Prescribed Total Dose (cGy) 800 ARIA 09/28/2024 12:4 7 PM CDT us Not In File Miscellaneous RADIATION ONCOLOGY ORD ERABLES Final Result EDSON * eGFR (09/28/2024 10:56 AM CDT) Pathologist [facility] [place] eGFR 68 >=60 mL/min/1. 73 m2 Comment: Interpretive Data Reference Interval Normal >/= 90 mL/min/1.73m2 Mildly decreased* 60 - 89 mL/min/1.73m2 Mildly to moderately decreased 45 - 59 mL/min/1.73m2 Moderately to severely decreased 30 - 44 mL/min/1.73m2 Severely decreased 15 - 29 mL/min/1.73m2 Kidney Failure < 15 mL/min/1.73m2 *Relative to young adult level Estimated glomerular filtration rate is determined by the 2020 CKD-EPI equation recommended by the National Kidney Foundation (A Unifying Approach to GFR Estimation: Recommendations of the NKF-ASK Task Force on Reassessing the Inclusion of Race in Diagnosing Kidney Disease, JASN 2020). The CKD-EPI equation should not be used for patients with unstable renal function and has not been validated in children and those over 70. Current interpretive data was last reviewed 2020. Testing performed by: [facility], [address] [place] [address], [place]., [address] Blood 09/28/2024 10:5 6 AM CDT 09/28/2024 11:20 AM CDT us Kaci Coronado AUTOMATION TECH LAB BLOOD ORDERABLES Final Re sult [facility] [facility] [address] [facility] [place] [address] * CBC without differential (09/28/2024 10:56 AM CDT) WBC 8.27 3.80 - 9.90 K/cumm Comment:Testing performed by : [address] [address] Hgb 11.9 11.9 - 15.5 g/dL CAT Comment:Testing performed by : [address] [address] Hct 36.6 35.6 - 45.5 % CAT Comment:Testing performed by : [address] [address] Plt 350 150 - 400 K/cumm CAT Comment:Testing performed by : [address] [address] MPV 9.8 9.1 - 12.3 fL CAT Comment:Testing performed by : [address] [address] RBC 4.14 3.90 - 5.20 M/cumm CAT Comment:Testing performed by : [address] [address] MCV 88.4 81.3 - 96.4 fL CAT Comment:Testing performed by : [address] [address] MCH 28.7 27.1 - 33.3 pg CAT Comment:Testing performed by : [address] [address] MCHC 32.5 32.3 - 35.7 g/dL CAT Comment:Testing performed by : [address] [address] RDW CV 13.9 11.1 - 14.9 % CAT Comment:Testing performed by : [address] [address] RDW SD 45.0 35.7 - 48.1 fL CAT Comment:Testing performed by : [address] [address] NRBC abs 0.00 0.00 - 0.01 K/cumm CAT MATHEWS Comment:Testing performed by : [address] [address] Blood 09/28/2024 10:5 6 AM CDT 09/28/2024 11:20 AM CDT Kaci Coronado AUTOMATION TECH LAB BLOOD ORDERABLES Final Re sult CAT [address] [facility] [place] [address] * (ABNORMAL) Comprehensive metabolic panel (09/28/2024 10:56 AM CDT) Sodium 144 135 - 145 mmol/L Comment:Testing performed by : [address] [address] Potassium, pl 3.8 3.3 - 4.9 mmol/L CAT Comment:Testing performed by : [address] [address] Chloride 102 97 - 110 mmol/L CAT Comment:Testing performed by : [address] [address] CO2 31 22 - 32 mmol/L CAT Comment:Testing performed by : [address] [address] Anion gap 11 2 - 15 mmol/L CAT Comment:Testing performed by : [address] [address] BUN 17 6 - 25 mg/dL CAT Comment:Testing performed by : [address] [address] Creatinine 0.90 0.60 - 1.10 mg/dL CAT Comment:Testing performed by : [address] [address] Glucose 167 70 - 199 mg/dL CAT Comment: Interpretive Data Fasting glucose >/= 126 mg/dl is diagnostic for diabetes. Fasting is defined as no caloric intake for at least 8 hours. Fasting glucose between 100 mg/dl to 125 mg/dl is diagnostic of prediabetes. In a patient with classic symptoms of hyperglycemia or hyperglycemic crisis, a random glucose >/= 200 mg/dl is diagnostic for diabetes. In the absence of unequivocal hyperglycemia, results should be confirmed by repeat testing. The classification and Diagnosis of Diabetes Diabetes Care 2021; 46: S19-S40. Current interpretive data was last revised 2022. Testing performed by: [address] [address] Calcium 10.1 8.5 - 10.3 mg/dL CAT Comment:Testing performed by : [address] [address] Bilirubin, total 0.8 0.1 - 1.2 mg/dL CAT Comment:Testing performed by : [address] [address] Protein, pl 5.9(L) 6.5 - 8.5 g/dL CAT Comment:Testing performed by : [address] [address] Albumin 3.6 3.5 - 5.0 g/dL CAT Comment:Testing performed by : [address] [address] Alk phos 82 40 - 130 Units/L CAT Comment:Testing performed by : [address] [address] ALT 6(L) 7 - 45 Units/L CAT Comment:Testing performed by : [address] [address] AST 12 10 - 45 Units/L CAT Comment:Testing performed by : [address] [address] Blood 09/28/2024 10:5 6 AM CDT 09/28/2024 11:20 AM CDT us Kaci Coronado AUTOMATION TECH LAB BLOOD ORDERABLES Final Re sult CAT [facility] [place] [address] * eGFR (09/27/2024 5:20 AM CDT) Pathologist [facility] [place] eGFR 64 >=60 mL/min/1. 73 m2 Comment: Interpretive Data Reference Interval Normal >/= 90 mL/min/1.73m2 Mildly decreased* 60 - 89 mL/min/1.73m2 Mildly to moderately decreased 45 - 59 mL/min/1.73m2 Moderately to severely decreased 30 - 44 mL/min/1.73m2 Severely decreased 15 - 29 mL/min/1.73m2 Kidney Failure < 15 mL/min/1.73m2 *Relative to young adult level Estimated glomerular filtration rate is determined by the 2020 CKD-EPI equation recommended by the [employer] (A Unifying Approach to GFR Estimation: Recommendations of the NKF-ASK Task Force on Reassessing the Inclusion of Race in Diagnosing Kidney Disease, JASN 2020). The CKD-EPI equation should not be used for patients with unstable renal function and has not been validated in children and those over 70. Current interpretive data was last reviewed 2020. Testing performed by: [address] [address] Blood 09/27/2024 5:20 AM CDT 09/27/2024 5:27 AM CDT Caty Olson MD LAB BLOOD ORDER MOE Final Result CAT [address] [facility] [place] [address] * CBC without differential (09/27/2024 5:20 AM CDT) [facility] WBC 5.28 3.80 - 9.90 K/cumm Comment:Testing performed by : [address] [address] Hgb 13.6 11.9 - 15.5 g/dL CAT Comment:Testing performed by : [address] [address] Hct 42.0 35.6 - 45.5 % CAT MATHEWS Comment:Testing performed by : [address] [address] Plt 340 150 - 400 K/cumm CAT Comment:Testing performed by : [address] [address] MPV 10.0 9.1 - 12.3 fL CAT Comment:Testing performed by : [address] [address] RBC 4.68 3.90 - 5.20 M/cumm CAT Comment:Testing performed by : [address] [address] MCV 89.7 81.3 - 96.4 fL CAT Comment:Testing performed by : [address] [address] MCH 29.1 27.1 - 33.3 pg CAT Comment:Testing performed by : [address] [address] MCHC 32.4 32.3 - 35.7 g/dL CAT Comment:Testing performed by : [address] [address] RDW CV 13.6 11.1 - 14.9 % CAT Comment:Testing performed by : [address] [address] RDW SD 44.6 35.7 - 48.1 fL CAT Comment:Testing performed by : [address] [address] NRBC abs 0.00 0.00 - 0.01 K/cumm CAT Comment:Testing performed by : [address] [address] Blood 09/27/2024 5:20 AM CDT 09/27/2024 5:27 AM CDT us Caty Olson MD LAB BLOOD ORDER MOE Final Result CAT [address] [facility] [place] [address] * (ABNORMAL) Basic metabolic panel (09/27/2024 5:20 AM CDT) Sodium 140 135 - 145 mmol/L Comment:Testing performed by : [address] [address] Potassium, pl 3.5 3.3 - 4.9 mmol/L CAT Comment:Testing performed by : [address] [address] Chloride 99 97 - 110 mmol/L CAT Comment:Testing performed by : [address] [address] CO2 29 22 - 32 mmol/L CAT Comment:Testing performed by : [address] [address] Anion gap 12 2 - 15 mmol/L CAT Comment:Testing performed by : [address] [address] BUN 7 6 - 25 mg/dL CAT Comment:Testing performed by : [address] [address] Creatinine 0.95 0.60 - 1.10 mg/dL CAT Comment:Testing performed by : [address] [address] Glucose 202(H) 70 - 199 mg/dL CAT Comment: Interpretive Data Fasting glucose >/= 126 mg/dl is diagnostic for diabetes. Fasting is defined as no caloric intake for at least 8 hours. Fasting glucose between 100 mg/dl to 125 mg/dl is diagnostic of prediabetes. In a patient with classic symptoms of hyperglycemia or hyperglycemic crisis, a random glucose >/= 200 mg/dl is diagnostic for diabetes. In the absence of unequivocal hyperglycemia, results should be confirmed by repeat testing. The classification and Diagnosis of Diabetes Diabetes Care 2021; 46: S19-S40. Current interpretive data was last revised 2022. Testing performed by: [address] [address] Calcium 10.4(H) 8.5 - 10.3 mg/dL CAT Comment:Testing performed by : [address] [address] Blood 09/27/2024 5:20 AM CDT 09/27/2024 5:27 AM CDT Caty Olson MD LAB BLOOD ORDER MOE Final Result CAT [address] [facility] [place] [address] * (ABNORMAL) Urinalysis reflex to microscopic and culture Urine (09/27/2024 1:35 AM CDT) Color, ur Straw Yellow Comment:Testing performed by : [address] [address] Clarity, ur Clear Clear CAT Comment:Testing performed by : [address] [address] Specific gravity, ur 1.035(H) 1.003 - 1.030 CAT Comment:Testing performed by : [address] [address] pH, urine 7.5 CAT Comment: Interpretive Data U rine pH is affected by diet, medications, systemic acid-base disturbances, and renal tubular function. pH may affect urinary stone formation. For example, urine pH below 6.0 may help reduce the tendency for calcium phosphate stones and pH greater than 6.0 may reduce the tendency for uric acid stone formation. Source: [facility] adjust Current Interpretive Data was last revised on 2017 Testing performed by: [address] [address] Protein, ur ql Negative Negative CAT Comment:Testing performed by : [address] [address] Glucose, ur ql Negative Negative CAT MATHEWS Comment:Testing performed by : [address] [address] Ketones, ur Negative Negative CAT MATHEWS Comment:Testing performed by : [address] [address] Bilirubin, ur Negative Negative CAT MATHEWS Comment:Testing performed by : [facility] [address] [place] [address], [place]., [address] Blood, ur Negative Negative CAT MATHEWS Comment:Testing performed by : [address], [place]., [address] Urobilinogen, ur <2.0 <2.0 mg/dL CAT MATHEWS Comment:Testing performed by : [facility] [address] [place] [address], [place]., [address] Nitrite, ur Negative Negative CAT MATHEWS Comment:Testing performed by : [address], [place]., [address] Leukocyte esterase, ur 1+(A) Negative CAT MATHEWS Comment:Testing performed by : [address], [place]., [address] UA reflex comment Reflex to microscopic UA will be performed. CAT MATHEWS Comment:Testing performed by : [facility] [address] [place] [address], [place]., [address] Urine 09/27/2024 1:35 AM CDT 09/27/2024 1:41 AM CDT us Brigida Marquez MD LAB MICROBIOLOGY - GENER AL ORDERABLES Final Result CAT [address] [facility] [place] [address] * (ABNORMAL) Urinalysis, microscopic only (09/27/2024 1:35 AM CDT) WBC, ur 0-5 0 - 5 /HPF Comment:Testing performed by : [facility] [address] [place] [address]., [address] RBC, ur 0-2 0 - 2 /HPF CAT MATHEWS Comment:Testing performed by : [address] [address] Epithelial cells, squamous, ur 6-10(A) 0 - 5 /HPF CAT MATHEWS Comment:Testing performed by : [address], [place]., [address] Mucous, ur Present(A) CAT MATHEWS Comment:Testing performed by : [address], [place]., [address] Culture Reflex Comment Reflex conditions for urine culture (WBC >10) not met. CAT MATHEWS Comment:Testing performed by : [facility], [address] [facility], [place]., [address] Urine 09/27/2024 1:35 AM CDT 09/27/2024 1:41 AM CDT us Brigida Marquez MD LAB URINE ORDERABLES Fin al Result ZAHID[facility]ANEE [address] [facility] [place] [address] * CT Recon Thoracic and Lumbar Spine W Contrast (C) (09/27/2024 12:57 AM CDT) Anatomical Region Laterality Modality Spine N/A Computed Tomogra phy 09/27/2024 1:06 AM CDT Narrative 09/27/2024 1:16 AM CDT EXAM DESCRIPTION: CT RECON THORACIC AND LUMBAR SPINE W CONTRAST (C) REASON FOR STUDY: Mid-back pain Ongoing and increasing confusion per son. Pt is CAOX4 in triage but slow to answer questions. Pt is on chemo; has port. Son with patient during triage process. Pt c/o right side and back pain which is chronic for patient. Pt is taking pain medication for cancer. Endorsing decreased appetite and trouble swallowing for months Unable to raise arms for scans. TECHNIQUE: Axial images acquired through the thoracic and lumbar spine with intravenous contrast. Images reviewed with lung, soft tissue and bone windows. Reconstructed coronal and sagittal MPR images reviewed. Images stored on PACS. Automated exposure control was used as a dose optimization technique for this examination. CONTRAST TYPE/DOSE: 91mL of IOVERSOL 350 MG IODINE/ML INTRAVENOUS SYRINGE injected via intravenous COMPARISON: 08/01/2024 FINDINGS: VERTEBRAE: Vertebral bodies are normal in height and alignment. Minimal disc disease for age. [id number] facet arthropathy moderate diffuse anterior marginal osteophytosis in the thoracic spine. No spinal fracture. Central canal and neural foramina are grossly patent. OTHER OSSEOUS: Expansile right posterior 6th rib lesion has enlarged significantly since 08/01/2024, 3.5 x 1 cm. SOFT TISSUES: 2 cm nodule in the right posterior lung has enlarged from 1.7 cm in July. Subcarinal lymph node has enlarged significantly, no 4.3 x 2.5 cm, previously 4 x 2.2 cm small right effusion has enlarged. Gallstones. IMPRESSION: 1. No acute spinal abnormality identified. 2. Right posterior 6th rib lesion, right posterior lung nodule, and subcarinal lymph node have enlarged significantly since 08/01/2024. Small right effusion has enlarged. THIS IS AN ELECTRONICALLY VERIFIED FINAL REPORT 09/27/2024 1:16 AM - Electronically signed by Rojelio Dunn M.D. AR: IDALIA Report ID: [id number] Reading Location: [id number] Procedure Note Rojelio Dunn MD - 09/27/2024 EXAM DESCRIPTION: CT RECON THORACIC AND LUMBAR SPINE W CONTRAST (C) REASON FOR STUDY: Mid-back pain Ongoing and increasing confusion per son. Pt is CAOX4 in triage but slowto answer questions. Pt is on chemo; has port. Son with patient during triage process. Pt c/o right side and back pain which is chronic for patient. Ptis taking pain medication for cancer. Endorsing decreased appetite andtrouble swallowing for months Unable to raise arms for scans. TECHNIQUE: Axial images acquired through the thoracic and lumbar spinewith intravenous contrast. Images reviewed with lung, soft tissue and bone windows. Reconstructed coronal and sagittal MPR images reviewed. Images stored on PACS. Automated exposure control was used as a dose optimization technique for this examination. CONTRAST TYPE/DOSE: 91mL of IOVERSOL 350 MG IODINE/ML INTRAVENOUS SYRINGE injected via intravenous COMPARISON: 08/01/2024 FINDINGS: VERTEBRAE: Vertebral bodies are normal in height and alignment. Minimal disc disease for age. [id number]-oofyldsp facet arthropathy moderatediffuse anterior marginal osteophytosis in the thoracic spine. No spinalfracture. Central canal and neural foramina are grossly patent. OTHER OSSEOUS: Expansile right posterior 6th rib lesion has enlarged significantly since 08/01/2024, 3.5 x 1 cm. SOFT TISSUES: 2 cm nodule in the right posterior lung has enlarged from1.7 cm in July. Subcarinal lymph node has enlarged significantly, no 4.3 x2.5 cm, previously 4 x 2.2 cm small right effusion has enlarged.Gallstones. IMPRESSION: 1. No acute spinal abnormality identified. 2. Right posterior 6th rib lesion, right posterior lung nodule, and subcarinal lymph node have enlarged significantly since 08/01/2024. Small right effusion has enlarged. THIS IS AN ELECTRONICALLY VERIFIED FINAL REPORT 09/27/2024 1:16 AM - Electronically signed by Rojelio Dunn M.D. AR: AR Report ID: [id number] Reading Location: [place] [address] us Brigida Marquez MD IMG CT PROCEDURES Final Result * CT Chest PE (CTA) Abdomen Pelvis W Contrast (09/27/2024 12:57 AM CDT) Anatomical Region Laterality Modality Body N/A Computed Tomogra phy 09/27/2024 2:20 AM CDT Narrative 09/27/2024 2:34 AM CDT EXAM DESCRIPTION: CT CHEST PE (CTA) ABDOMEN PELVIS W CONTRAST REASON FOR STUDY: Right flank pain, hypoxemia, altered mental status Ongoing and increasing confusion per son. Pt is CAOX4 in triage but slow to answer questions. Pt is on chemo; has port. Son with patient during triage process. Pt c/o right side and back pain which is chronic for patient. Pt is taking pain medication for cancer. Endorsing decreased appetite and trouble swallowing for months Unable to raise arms for scans. TECHNIQUE: CT angiogram of the chest with routine abdomen and pelvis performed with intravenous and without oral contrast using helical scanning technique with dynamic intravenous contrast injection. Reconstructed coronal and sagittal MPR images reviewed. All images stored on PACS. 3D MIP images of the chest rendered on scanning unit and reviewed at time of interpretation. Automated exposure control was used as a dose optimization technique for this examination. CONTRAST TYPE/DOSE: 91mL of IOVERSOL 350 MG IODINE/ML INTRAVENOUS SYRINGE injected via intravenous COMPARISON: 08/01/2024 FINDINGS: CHEST VASCULAR: Bolus timing is adequate and no filling defect is seen in the pulmonary arterial tree. Systemic arterial structures are partially opacified and reveal no acute abnormality. MEDIASTINUM/ERICH: Moderate cardiomegaly. Coronary artery calcifications. Subcarinal lymph node enlargement has worsened since July, up to 4 x 2.3 cm today, previously 3.5 x 1.8 cm. Right paratracheal/perihilar nodule shows no definite change. LUNGS: Posterior right lung nodule measures 2 cm, previously 1.8 cm. Other scattered nodules show similar slight increase in size. Small right pleural effusion. Right lower lobe bronchi have become occluded since the prior. CHEST MUSCULOSKELETAL: Shoulder arthritis. Right posterior 6th rib lesion has enlarged significantly from the prior, now 3.1 cm. CHEST WALL: Unremarkable. LIVER/BILIARY: No suspicious lesion is seen irregularity across the left lobe unchanged biliary tree normal in caliber. GALLBLADDER: Well distended. Stones in the fundus. SPLEEN: Normal. PANCREAS: Moderate atrophy. ADRENAL GLANDS: Normal. KIDNEYS/URINARY TRACT: Unremarkable. GI: Stomach and small bowel appear normal. Rectal anastomosis unremarkable. Scattered, noninflamed colonic diverticula. Appendix not seen. OTHER ABDOMINAL/PELVIS: Major vascular structures are grossly patent and normal in caliber. No enlarged lymph node or free fluid. MSK: Moderate lumbar disc disease. Moderate hip arthritis. BODY WALL: Unremarkable. IMPRESSION: 1. No PE. 2. Enlarging pulmonary nodules and significant progression of expansile lytic right posterior 6th rib lesion are evidence for worsening metastatic disease. 3. Gallbladder is well distended. No definite inflammation or obstruction. 4. Chronic findings as above. THIS IS AN ELECTRONICALLY VERIFIED FINAL REPORT 09/27/2024 2:34 AM - Electronically signed by Rojelio Dunn M.D. AR: IDALIA Report ID: [id number] Reading Location: [id number] Procedure Note Rojelio Dunn MD - 09/27/2024 EXAM DESCRIPTION: CT CHEST PE (CTA) ABDOMEN PELVIS W CONTRAST REASON FOR STUDY: Right flank pain, hypoxemia, altered mental status Ongoing and increasing confusion per son. Pt is CAOX4 in triage but slowto answer questions. Pt is on chemo; has port. Son with patient during triage process. Pt c/o right side and back pain which is chronic for patient. Ptis taking pain medication for cancer. Endorsing decreased appetite andtrouble swallowing for months Unable to raise arms for scans. TECHNIQUE: CT angiogram of the chest with routine abdomen and pelvisperformed with intravenous and without oral contrast using helical scanningtechnique with dynamic intravenous contrast injection. Reconstructed coronal and sagittal MPR images reviewed. All images stored on PACS. 3D MIP images ofthe chest rendered on scanning unit and reviewed at time of interpretation. Automated exposure control was used as a dose optimization technique forthis examination. CONTRAST TYPE/DOSE: 91mL of IOVERSOL 350 MG IODINE/ML INTRAVENOUS SYRINGE injected via intravenous COMPARISON: 08/01/2024 FINDINGS: CHEST VASCULAR: Bolus timing is adequate and no filling defect is seen inthe pulmonary arterial tree. Systemic arterial structures are partially opacified and reveal no acute abnormality. MEDIASTINUM/ERICH: Moderate cardiomegaly. Coronary artery calcifications. Subcarinal lymph node enlargement has worsened since July, up to 4 x 2.3cm today, previously 3.5 x 1.8 cm. Right paratracheal/perihilar nodule showsno definite change. LUNGS: Posterior right lung nodule measures 2 cm, previously 1.8 cm.Other scattered nodules show similar slight increase in size. Small rightpleural effusion. Right lower lobe bronchi have become occluded since the prior. CHEST MUSCULOSKELETAL: Shoulder arthritis. Right posterior 6th riblesion has enlarged significantly from the prior, now 3.1 cm. CHEST WALL: Unremarkable. LIVER/BILIARY: No suspicious lesion is seen irregularity across the leftlobe unchanged biliary tree normal in caliber. GALLBLADDER: Well distended. Stones in the fundus. SPLEEN: Normal. PANCREAS: Moderate atrophy. ADRENAL GLANDS: Normal. KIDNEYS/URINARY TRACT: Unremarkable. GI: Stomach and small bowel appear normal. Rectal anastomosisunremarkable. Scattered, noninflamed colonic diverticula. Appendix not seen. OTHER ABDOMINAL/PELVIS: Major vascular structures are grossly patent and normal in caliber. No enlarged lymph node or free fluid. MSK: Moderate lumbar disc disease. Moderate hip arthritis. BODY WALL: Unremarkable. IMPRESSION: 1. No PE. 2. Enlarging pulmonary nodules and significant progression of expansile lytic right posterior 6th rib lesion are evidence for worsening metastatic disease. 3. Gallbladder is well distended. No definite inflammation orobstruction. 4. Chronic findings as above. THIS IS AN ELECTRONICALLY VERIFIED FINAL REPORT 09/27/2024 2:34 AM - Electronically signed by Rojelio Dunn M.D. AR: IDALIA Report ID: [id number] Reading Location: [id number] Brigida Marquez MD IMG CT PROCEDURES Final Result * CT Head WO Contrast (09/27/2024 12:57 AM CDT) Anatomical Region Laterality Modality Head and Neck N/A Computed Tomogra phy 09/27/2024 2:34 AM CDT Narrative 09/27/2024 2:35 AM CDT EXAM DESCRIPTION: CT HEAD WO CONTRAST REASON FOR STUDY: Mental status change, unknown cause Ongoing and increasing confusion per son. Pt is CAOX4 in triage but slow to answer questions. Pt is on chemo; has port. Son with patient during triage process. Pt c/o right side and back pain which is chronic for patient. Pt is taking pain medication for cancer. Endorsing decreased appetite and trouble swallowing for months Unable to raise arms for scans. TECHNIQUE: Axial images acquired through the brain without intravenous contrast. Images stored on PACS. Automated exposure control was used as a dose optimization technique for this examination. COMPARISON: None FINDINGS: BRAIN: No mass, hemorrhage, or recent infarct. Normal white matter. Volume within normal limits for age. VASCULAR: No dense vessel or obvious aneurysm. EXTRA-AXIAL SPACES: No mass or fluid collection. ORBITS/GLOBES: Unremarkable. SOFT TISSUES: Unremarkable. BONES/SINUSES: No fracture or lesion. Paranasal sinuses and other skullbase airspaces are clear. IMPRESSION: No acute abnormality identified. THIS IS AN ELECTRONICALLY VERIFIED FINAL REPORT 09/27/2024 2:35 AM - Electronically signed by Rojelio Dunn M.D. AR: IDALIA Report ID: [id number] Reading Location: [id number] Procedure Note Rojelio Dunn MD - 09/27/2024 EXAM DESCRIPTION: CT HEAD WO CONTRAST REASON FOR STUDY: Mental status change, unknown cause Ongoing and increasing confusion per son. Pt is CAOX4 in triage but slowto answer questions. Pt is on chemo; has port. Son with patient during triage process. Pt c/o right side and back pain which is chronic for patient. Ptis taking pain medication for cancer. Endorsing decreased appetite andtrouble swallowing for months Unable to raise arms for scans. TECHNIQUE: Axial images acquired through the brain without intravenous contrast. Images stored on PACS. Automated exposure control was used asa dose optimization technique for this examination. COMPARISON: None FINDINGS: BRAIN: No mass, hemorrhage, or recent infarct. Normal white matter. Volume within normal limits for age. VASCULAR: No dense vessel or obvious aneurysm. EXTRA-AXIAL SPACES: No mass or fluid collection. ORBITS/GLOBES: Unremarkable. SOFT TISSUES: Unremarkable. BONES/SINUSES: No fracture or lesion. Paranasal sinuses and otherskullbase airspaces are clear. IMPRESSION: No acute abnormality identified. THIS IS AN ELECTRONICALLY VERIFIED FINAL REPORT 09/27/2024 2:35 AM - Electronically signed by Rojelio Dunn M.D. AR: IDALIA Report ID: [id number] Reading Location: [place] [address] us Brigida Marquez MD IMG CT PROCEDURES Final Result * [facility] CRITICAL CARE ILL/INJURED PATIENT INIT 30-74 MIN (09/26/2024 11:32 PM CDT) Narrative Brigida Marquez MD - 09/26/2024 11:32 PM CDT Brigida Marquez MD 09/27/2024 3:19 AM Critical Care Performed by: Brigida Marquez MD Authorized by: Brigida Marquez MD Critical care provider statement: As reflected in the history, physical exam, orders, notes, and/or MDM, I was personally present while the patient was critically ill and provided critical care services for 38 minutes, excluding time involved in separately billable procedures. Critical care was necessary to treat or prevent imminent or life-threatening deterioration of the following condition(s): Critical care was time spent by me providing the following: acute pain control us Brigida Marquez MD IN CLINIC/BEDSIDE ORDERA BLES Final Result * eGFR (09/26/2024 9:45 PM CDT) eGFR 60 >=60 mL/min/1. 73 m2 Comment: Interpretive Data Reference Interval Normal >/= 90 mL/min/1.73m2 Mildly decreased* 60 - 89 mL/min/1.73m2 Mildly to moderately decreased 45 - 59 mL/min/1.73m2 Moderately to severely decreased 30 - 44 mL/min/1.73m2 Severely decreased 15 - 29 mL/min/1.73m2 Kidney Failure < 15 mL/min/1.73m2 *Relative to young adult level Estimated glomerular filtration rate is determined by the 2020 CKD-EPI equation recommended by the National Kidney Foundation (A Unifying Approach to GFR Estimation: Recommendations of the NKF-ASK Task Force on Reassessing the Inclusion of Race in Diagnosing Kidney Disease, JASN 2020). The CKD-EPI equation should not be used for patients with unstable renal function and has not been validated in children and those over 70. Current interpretive data was last reviewed 2020. Testing performed by: [address] [address] Blood 09/26/2024 9:45 PM CDT 09/26/2024 9:48 PM CDT us Brigida Marquez MD LAB BLOOD ORDERABLES Fin al Result [facility] [address] [facility] [place] [address] * Differential, auto (09/26/2024 9:45 PM CDT) Pathologist [facility] [place] Neutrophil abs 3.30 1.50 - 6.50 K/cumm Comment:Testing performed by : [address] [address] Imm gran abs 0.01 0.00 - 0.10 K/cumm CAT Comment:Testing performed by : [address] [address] Lymphocyte abs 1.66 0.80 - 3.30 K/cumm CAT Comment:Testing performed by : [address] [address] Monocyte abs 0.54 0.20 - 0.80 K/cumm [facility] Comment:Testing performed by : [address] [address] Eosinophil abs 0.12 0.00 - 0.50 K/cumm [facility] Comment:Testing performed by : [address] [address] Basophil abs 0.03 0.00 - 0.10 K/cumm [facility] Comment:Testing performed by : [address] [address] Neutrophil pct 58.4 % [facility] Comment: Interpretive Data Percent cell count reference ranges are not reported, since discordance with absolute values may lead to misinterpretation of CBC data. Current Interpretive Data was last revised on 2017. Testing performed by: [address] [address] Imm gran pct 0.2 % [facility] Comment: Interpretive Data Percent cell count reference ranges are not reported, since discordance with absolute values may lead to misinterpretation of CBC data. Current Interpretive Data was last revised on 2017. Testing performed by: [address] [address] Lymphocyte pct 29.3 % [facility] Comment: Interpretive Data Percent cell count reference ranges are not reported, since discordance with absolute values may lead to misinterpretation of CBC data. Current Interpretive Data was last revised on 2017. Testing performed by: [address] [address] Monocyte pct 9.5 % [facility] Comment: Interpretive Data Percent cell count reference ranges are not reported, since discordance with absolute values may lead to misinterpretation of CBC data. Current Interpretive Data was last revised on 2017. Testing performed by: [address] [address] Eosinophil pct 2.1 % [facility] Comment: Interpretive Data Percent cell count reference ranges are not reported, since discordance with absolute values may lead to misinterpretation of CBC data. Current Interpretive Data was last revised on 2017. Testing performed by: [address] [address] Basophil pct 0.5 % [facility] Comment: Interpretive Data Percent cell count reference ranges are not reported, since discordance with absolute values may lead to misinterpretation of CBC data. Current Interpretive Data was last revised on 2017. Testing performed by: [address] [address] Blood 09/26/2024 9:45 PM CDT 09/26/2024 9:48 PM CDT us Brigida Marquez MD LAB BLOOD ORDERABLES Fin al Result [facility] [place] [address] * CBC with auto differential (09/26/2024 9:45 PM CDT) WBC 5.66 3.80 - 9.90 K/cumm Comment:Testing performed by : [address] [address] Hgb 12.6 11.9 - 15.5 g/dL [facility] Comment:Testing performed by : [address] [address] Hct 39.0 35.6 - 45.5 % [facility] Comment:Testing performed by : [address] [address] Plt 308 150 - 400 K/cumm [facility] Comment:Testing performed by : [address] [address] MPV 9.6 9.1 - 12.3 fL [facility] Comment:Testing performed by : [address] [address] RBC 4.39 3.90 - 5.20 M/cumm [facility] Comment:Testing performed by : [address] [address] MCV 88.8 81.3 - 96.4 fL [facility] Comment:Testing performed by : [address] [address] MCH 28.7 27.1 - 33.3 pg [facility] Comment:Testing performed by : [address] [address] MCHC 32.3 32.3 - 35.7 g/dL [facility] Comment:Testing performed by : [address] [address] RDW CV 13.9 11.1 - 14.9 % [facility] Comment:Testing performed by : [address] [address] RDW SD 44.6 35.7 - 48.1 fL [facility] Comment:Testing performed by : [address] [address] NRBC abs 0.00 0.00 - 0.01 K/cumm [facility] Comment:Testing performed by : [address] [address] Blood 09/26/2024 9:45 PM CDT 09/26/2024 9:48 PM CDT us Brigida Marquez MD LAB BLOOD ORDERABLES Fin al Result [facility] [place], [place] [id number] * (ABNORMAL) Comprehensive metabolic panel (09/26/2024 9:45 PM CDT) Sodium 142 135 - 145 mmol/L Comment:Testing performed by : [address] [address] Potassium, pl 3.3 3.3 - 4.9 mmol/L [facility] Comment:Testing performed by : [address] [address] Chloride 100 97 - 110 mmol/L [facility] Comment:Testing performed by : [address] [address] CO2 28 22 - 32 mmol/L [facility] Comment:Testing performed by : [address] [address] Anion gap 14 2 - 15 mmol/L [facility] Comment:Testing performed by : [address] [address] BUN 8 6 - 25 mg/dL [facility] Comment:Testing performed by : [address] [address] Creatinine 1.01 0.60 - 1.10 mg/dL CAT Comment:Testing performed by : [address] [address] Glucose 139 70 - 199 mg/dL [facility] Comment: Interpretive Data Fasting glucose >/= 126 mg/dl is diagnostic for diabetes. Fasting is defined as no caloric intake for at least 8 hours. Fasting glucose between 100 mg/dl to 125 mg/dl is diagnostic of prediabetes. In a patient with classic symptoms of hyperglycemia or hyperglycemic crisis, a random glucose >/= 200 mg/dl is diagnostic for diabetes. In the absence of unequivocal hyperglycemia, results should be confirmed by repeat testing. The classification and Diagnosis of Diabetes Diabetes Care 2021; 46: S19-S40. Current interpretive data was last revised 2022. Testing performed by: [address] [address] Calcium 10.4(H) 8.5 - 10.3 mg/dL [facility] Comment:Testing performed by : [address] [address] Bilirubin, total 1.3(H) 0.1 - 1.2 mg/dL [facility] Comment:Testing performed by : [address] [address] Protein, pl 7.0 6.5 - 8.5 g/dL [facility] Comment:Testing performed by : [address] [address] Albumin 4.0 3.5 - 5.0 g/dL [facility] Comment:Testing performed by : [address] [address] Alk phos 97 40 - 130 Units/L [facility] Comment:Testing performed by : [address] [address] ALT 10 7 - 45 Units/L [facility] Comment:Testing performed by : [facility], [address] [place] [address]., [address] AST 19 10 - 45 Units/L CAT Comment:Testing performed by : [facility], [address] [place] [address]., [address] Blood 09/26/2024 9:45 PM CDT 09/26/2024 9:48 PM CDT Brigida Marquez MD LAB BLOOD ORDERABLES Fin al Result [facility] [address] [facility] [place] [address] * ECG 12 lead (09/26/2024 9:35 PM CDT) Pathologist [facility] [place] Ventricular Rate EKG/Min 82 BPM [facility] Atrial Rate 82 BPM [facility] IA-Interval (MSEC) 174 ms [facility] QRS-Interval (MSEC) 100 ms [facility] QT-Interval (MSEC) 374 ms [facility] QTc 436 ms [facility] P Somers 52 degrees [facility] R Somers -34 degrees [facility] T Somers 144 degrees [facility] Diagnosis Normal sinus rhythm Left axis deviation Left ventricular hypertrophy with repolarization abnormality Abnormal ECG When compared with ECG of 19-MAR-2024 12:38, Sinus rhythm has replaced Atrial fibrillation Confirmed by ZAIDA HAWTHORNE M.D. ([id number]) on 09/27/2024 7:06:12 PM [facility] 09/26/2024 9:35 PM CDT 09/27/2024 7:06 PM CDT us Brigida Marquez MD ECG ORDERABLES Final Re sult [facility] * [id number] (09/05/2024 9:17 AM CDT) MSI-HIGH NOT DETECTED 09/12/2024 9:53 AM CDT [facility] TMB 9.46 mut/Mb 09/12/2024 9:53 AM CDT [facility] TUMOR FRACTION 0.2% 09/12/2024 9:53 AM CDT [facility] Blood specimen (specimen) Venous blood specimen / Unknown 09/05/2024 9:17 AM CDT 09/06/2024 2:00 AM CDT Narrative This result has genomic variants that were not included in this document. Barbara Hernandes AUTOMATION TECH LAB GENETIC TESTING Final Result [facility] [address] [place] [address], [facility] [phone] [facility] [address] [place] [address] * eGFR (09/05/2024 9:15 AM CDT) eGFR >90 >=60 mL/min/1. 73 m2 Comment: Interpretive Data Reference Interval Normal >/= 90 mL/min/1.73m2 Mildly decreased* 60 - 89 mL/min/1.73m2 Mildly to moderately decreased 45 - 59 mL/min/1.73m2 Moderately to severely decreased 30 - 44 mL/min/1.73m2 Severely decreased 15 - 29 mL/min/1.73m2 Kidney Failure < 15 mL/min/1.73m2 *Relative to young adult level Estimated glomerular filtration rate is determined by the 2020 CKD-EPI equation recommended by the National Kidney Foundation (A Unifying Approach to GFR Estimation: Recommendations of the NKF-ASK Task Force on Reassessing the Inclusion of Race in Diagnosing Kidney Disease, JASN 2020). The CKD-EPI equation should not be used for patients with unstable renal function and has not been validated in children and those over 70. Current interpretive data was last reviewed 2020. Testing performed by: [facility], [address] [place] [address]., [address] Blood 09/05/2024 9:15 AM CDT 09/05/2024 9:22 AM CDT us Barbara Blackmon Cecilio AUTOMATION TECH LAB BLOOD ORDERABLES Final Result [facility] [address] [facility] [place], [place] [id number] * (ABNORMAL) Differential, auto (09/05/2024 9:15 AM CDT) Neutrophil abs 6.78(H) 1.50 - 6.50 K/cumm Comment:Testing performed by : [address] [address] Imm gran abs 0.11(H) 0.00 - 0.10 K/cumm CAT Comment:Testing performed by : [address] [address] Lymphocyte abs 1.71 0.80 - 3.30 K/cumm CAT Comment:Testing performed by : [address] [address] Monocyte abs 0.86(H) 0.20 - 0.80 K/cumm CAT Comment:Testing performed by : [address] [address] Eosinophil abs 0.03 0.00 - 0.50 K/cumm CAT Comment:Testing performed by : [address] [address] Basophil abs 0.01 0.00 - 0.10 K/cumm [facility] Comment:Testing performed by : [address] [address] Neutrophil pct 71.3 % [facility] Comment: Interpretive Data Percent cell count reference ranges are not reported, since discordance with absolute values may lead to misinterpretation of CBC data. Current Interpretive Data was last revised on 2017. Testing performed by: [address] [address] Imm gran pct 1.2 % [facility] Comment: Interpretive Data Percent cell count reference ranges are not reported, since discordance with absolute values may lead to misinterpretation of CBC data. Current Interpretive Data was last revised on 2017. Testing performed by: [address] [place]., [address] Lymphocyte pct 18.0 % [facility] Comment: Interpretive Data Percent cell count reference ranges are not reported, since discordance with absolute values may lead to misinterpretation of CBC data. Current Interpretive Data was last revised on 2017. Testing performed by: [address] [address] Monocyte pct 9.1 % [facility] Comment: Interpretive Data Percent cell count reference ranges are not reported, since discordance with absolute values may lead to misinterpretation of CBC data. Current Interpretive Data was last revised on 2017. Testing performed by: [address] [address] Eosinophil pct 0.3 % [facility] Comment: Interpretive Data Percent cell count reference ranges are not reported, since discordance with absolute values may lead to misinterpretation of CBC data. Current Interpretive Data was last revised on 2017. Testing performed by: [address] [address] Basophil pct 0.1 % [facility] Comment: Interpretive Data Percent cell count reference ranges are not reported, since discordance with absolute values may lead to misinterpretation of CBC data. Current Interpretive Data was last revised on 2017. Testing performed by: [address] [address] Blood 09/05/2024 9:15 AM CDT 09/05/2024 9:22 AM CDT Barbara Hernandes AUTOMATION TECH LAB BLOOD ORDERABLES Final Result [facility] [address] [facility] [place] [address] * (ABNORMAL) CBC with auto differential (09/05/2024 9:15 AM CDT) [facility] WBC 9.50 3.80 - 9.90 K/cumm Comment:Testing performed by : [address] [address] Hgb 11.5(L) 11.9 - 15.5 g/dL CAT Comment:Testing performed by : [address] [address] Hct 34.6(L) 35.6 - 45.5 % CAT Comment:Testing performed by : [address] [address] Plt 268 150 - 400 K/cumm CAT Comment:Testing performed by : [address] [address] MPV 9.7 9.1 - 12.3 fL CAT Comment:Testing performed by : [address] [address] RBC 3.93 3.90 - 5.20 M/cumm CAT Comment:Testing performed by : [address] [address] MCV 88.0 81.3 - 96.4 fL CAT Comment:Testing performed by : [address] [address] MCH 29.3 27.1 - 33.3 pg CAT Comment:Testing performed by : [address] [address] MCHC 33.2 32.3 - 35.7 g/dL CAT Comment:Testing performed by : [address] [address] RDW CV 15.1(H) 11.1 - 14.9 % CAT Comment:Testing performed by : [address], [address] RDW SD 48.6(H) 35.7 - 48.1 fL [facility] Comment:Testing performed by : [address] [address] NRBC abs 0.00 0.00 - 0.01 K/cumm CAT Comment:Testing performed by : [address] [address] ANC Prelim 6.78(H) 1.50 - 6.50 K/cumm CAT Comment: Interpretive Data The rapid ANC is a preliminary automated count and may vary from the final ANC (Neut Abs) reported in the WBC differential that follows. Current interpretive data was last revised 2024. Testing performed by: [address] [address] Blood 09/05/2024 9:15 AM CDT 09/05/2024 9:22 AM CDT Barbara Hernandes NP LAB BLOOD ORDERABLES Final Result Performing Organization Address [facility] de Phone Number [address] [place] [address] * (ABNORMAL) CEA (09/05/2024 9:15 AM CDT) CEA 18.9(H) <=5.0 ng/mL Comment: Interpretive Data: Reference Range: Non-Smokers: 0.0 5.0 ng/mL Smokers: 0.0 6.5 ng/mL The Yuly CEA assay procedure was used. Results from different manufacturers or methods may not be comparable. Serial testing should be performed using the same method. Current interpretive data was last revised 2022. Testing performed by: [address] [address] Blood 09/05/2024 9:15 AM CDT 09/05/2024 11:47 AM CDT Barbara Hernandes NP LAB BLOOD ORDERABLES Final Result Performing Organization Address [facility] de Phone Number [address] [employer] [place] [address] * (ABNORMAL) Comprehensive metabolic panel (09/05/2024 9:15 AM CDT) Pathologist [facility] [place] Sodium 139 135 - 145 mmol/L Comment:Testing performed by : [address] [address] Potassium, pl 3.9 3.3 - 4.9 mmol/L CAT Comment:Testing performed by : [address] [address] Chloride 102 97 - 110 mmol/L [facility] Comment:Testing performed by : [address] [address] CO2 27 22 - 32 mmol/L [facility] Comment:Testing performed by : [address], [place]., [address] Anion gap 10 2 - 15 mmol/L [facility] Comment:Testing performed by : [address], [place]., [address] BUN 17 6 - 25 mg/dL [facility] Comment:Testing performed by : [address], [place]., [address] Creatinine 0.70 0.60 - 1.10 mg/dL [facility] Comment:Testing performed by : [address] [address] Glucose 132 70 - 199 mg/dL [facility] Comment: Interpretive Data Fasting glucose >/= 126 mg/dl is diagnostic for diabetes. Fasting is defined as no caloric intake for at least 8 hours. Fasting glucose between 100 mg/dl to 125 mg/dl is diagnostic of prediabetes. In a patient with classic symptoms of hyperglycemia or hyperglycemic crisis, a random glucose >/= 200 mg/dl is diagnostic for diabetes. In the absence of unequivocal hyperglycemia, results should be confirmed by repeat testing. The classification and Diagnosis of Diabetes Diabetes Care 202; 46: S19-S40. Current interpretive data was last revised 2022. Testing performed by: [address] [address] Calcium 9.5 8.5 - 10.3 mg/dL [facility] Comment:Testing performed by : [address] [address] Bilirubin, total 1.4(H) 0.1 - 1.2 mg/dL [facility] Comment:Testing performed by : [address] [address] Protein, pl 6.5 6.5 - 8.5 g/dL [facility] Comment:Testing performed by : [address] [address] Albumin 4.1 3.5 - 5.0 g/dL [facility] Comment:Testing performed by : [facility], [address] [place] [address]., [address] Alk phos 91 40 - 130 Units/L [facility] Comment:Testing performed by : [address] [address] ALT 6(L) 7 - 45 Units/L [facility] Comment:Testing performed by : [address] [address] AST 11 10 - 45 Units/L [facility] Comment:Testing performed by : [address] [address] Blood 09/05/2024 9:15 AM CDT 09/05/2024 9:22 AM CDT us Barbara Hernandes NP LAB BLOOD ORDERABLES Final Result [facility] [address] [facility] [place] [address] * Colonoscopy (06/28/2023 7:44 AM CDT) Anatomical Region Laterality Modality Other Narrative Procedure Note Karen Vieira MD - 06/28/2023 7:44 AM CDT [facility] GI ENDOSCOPY Patient Name: Joseph Rodriguez Procedure Date: 06/28/2023 7:44 AM Date of : 1950 Admit Type: Outpatient Age: 72 Gender: Female Attending MD: Karen Vieira M.D. Room: [facility] ENDOSCOPY ROOM 05 Note Status: Finalized Procedure: Colonoscopy Indications: High risk colon cancer surveillance: Personalhistory of colon cancer Referring MD: Providers: Karen Vieira M.D. Medicines: See the Anesthesia note for documentation of the administered medications Complications: No immediate complications. Estimated Blood Loss: Estimated blood loss was minimal. Procedure: The benefits, risks and alternatives of theprocedure and sedation were discussed and informed consentwas obtained. All questions were answered. Please referto the signed informed consent document in the medical record. The scope was passed under direct vision.The [id number] colonoscope was introduced through theanus and advanced to the cecum, identified byappendiceal orifice and ileocecal valve. The colonoscopy was performed without difficulty. The patient tolerated the procedure well. The quality of the bowel preparation was adequate. Findings: The perianal and digital rectal examinations were normal. Diverticula were found in the colon. There was evidence of a prior end-to-end colo-colonic anastomosis inthe sigmoid colon. This was patent and was characterized by healthy appearing mucosa. Internal hemorrhoids were found during retroflexion. The hemorrhoids were small. Impression: - Diverticulosis. - Patent end-to-end colo-colonic anastomosis, characterized by healthy appearing mucosa. - Internal hemorrhoids. - No specimens collected. Recommendation: - Repeat colonoscopy in 2 years for surveillance. Karen Vieira M.D. Karen Vieira M.D. 06/28/2023 8:10:50 AM . Number of Addenda: 0 Note Initiated On: 06/28/2023 7:44 AM Recognized by the [place] [employer] for promoting quality in endoscopy us Karen Vieira MD ENDOSCOPY PROCEDURES Final Resul t * Screening Mammogram 2D Bilateral (01/25/2014 11:00 AM SENIOR STATISTICAL PROGRAMMER) Anatomical Region Laterality Modality Breast Bilateral Mammography 01/25/2014 11:0 0 AM SENIOR STATISTICAL PROGRAMMER Impressions 01/28/2014 8:07 AM SENIOR STATISTICAL PROGRAMMER INCOMPLETE:BI-RAD 0 NEED ADDITIONAL IMAGING EVALUATION Right breast focal asymmetry and CC view asymmetries. Additional imaging is recommended. The patient will be contacted. No mammographic evidence malignancy involving the left breast. Recommend routine annual screening mammography on the left. Electronically signed by: Dominick Will md/:01/25/2014 11:42:05 Order Dispatcher: Ynes VALDEZ(Angela)(M), [facility] letter sent: Additional Imaging Reading location: BI-RADS: 0 INCOMPLETE:NEED ADDITIONAL IMAGING EVALUATION [EOD] Narrative 01/28/2014 8:07 AM SENIOR STATISTICAL PROGRAMMER - CHRISTOPHER BILATERAL SCREENING W/CAD BILATERAL DIGITAL SCREENING MAMMOGRAM WITH CAD: 01/25/2014 The study was acquired using full field digital technology and interpreted from soft copy. Current study was also evaluated with ICAD version 7.2. COMPARISONS: No prior exams were available for comparison. BREAST TISSUE:There are scattered fibroglandular densities in both breasts. FINDINGS: A focal asymmetry is seen within the anterolateral right breast, located above the posterior nipple line on the MLO view. Several sub-centimeter right breast CC view asymmetries are noted medially at an anterior to middle depth. No suspicious mass, calcifications, or other significant mammographic findings are identified within the left breast. Procedure Note Provider, MD Viridiana - 07/14/2020 - CHRISTOPHER BILATERAL SCREENING W/CAD BILATERAL DIGITAL SCREENING MAMMOGRAM WITH CAD: 01/25/2014 The study was acquired using full field digital technology and interpretedfrom soft copy. Current study was also evaluated with ICAD version 7.2. COMPARISONS: No prior exams were available for comparison. BREAST TISSUE:There are scattered fibroglandular densities in bothbreasts. FINDINGS: A focal asymmetry is seen within the anterolateral rightbreast, located above the posterior nipple line on the MLO view. Several sub-centimeter right breast CC view asymmetries are noted medially at an anterior to middle depth. No suspicious mass, calcifications, or other significant mammographicfindings are identified within the left breast. IMPRESSION: INCOMPLETE:BI-RAD 0 NEED ADDITIONAL IMAGING EVALUATION Right breast focal asymmetry and CC view asymmetries. Additional imagingis recommended. The patient will be contacted. No mammographic evidence malignancy involving the left breast. Recommend routine annual screening mammography on the left. Electronically signed by: Dominick Will md/:01/25/2014 11:42:05 Order Dispatcher: Ynes VALDEZ(R)(M), [facility] letter sent: Additional Imaging Reading location: BI-RADS: 0 INCOMPLETE:NEED ADDITIONAL IMAGING EVALUATION [EOD] us Bunny Chan MD IMG MAMMO PROCEDURES Final Resu lt from Last 3 Months or Most Recently Relevant to Health Maintenance [place] [address] MEDICARE [facility] MEDIC[place] [address] MEDICARE [place] [facility] [place] [facility] Advance Directives For more information, please contact: [phone] Documents on File Type Date 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 11/30/2023 11:04 AM Christin r of [employer] * Full Code (Latest Code Status on File) Date Activated Date Inactivated Comments 10/16/2024 5:10 PM 10/18/2024 3:05 PM * Full Code Date Activated Date Inactivated Comments 09/27/2024 3:48 AM 09/28/2024 7:11 PM * Full Code Date Activated Date Inactivated Comments 03/19/2024 3:55 PM 03/25/2024 5:12 PM * Full Code Date Activated Date Inactivated Comments 11/29/2023 4:27 PM 12/02/2023 2:20 PM * Full Code Date Activated Date Inactivated Comments 05/28/2022 3:43 PM 05/29/2022 7:49 PM Care Teams Extension Course Counselor Relationship Specialty Start Date End Date Bunny Chan MD [address] [place] [address] [address] [place] [address] PCP - General Family Medicine 08/21/24 Karen Vieira MD [facility] [address] [place] [address] Referring Physician General Surgery 11/26/19 Nathan Kaye DO 1418 [facility], [facility] [address] [place], [place] [address] Medical Oncologist/Hematologis t Hematology and Oncology 11/16/21 Manuel Bravo MD [address] [address] Radiation Oncologist Radiation Oncology 08/17/24 Roby Claudio MD [address] [address] Consulting Physician Pulmonary Disease 08/21/24 Asim Alejandre MD [address] [place] [address] Referring Physician Interventional Cardiology 08/21/24
--- OUTSIDE RECORDS SUMMARY | 2024-11-27 12:10 | XMS_ITS ---
Author Organization [facility] Address [address] [place] [address] Care Team Providers Care Calculus Tutor Name Role Phone Karen Vieira MD Unavailable Nathan Kaye DO Unavailable [phone] Manuel Bravo MD Unavailable [phone] Bunny Chan MD Primary Care Provider [phone] Roby Claudio MD Unavailable [phone] Asim Alejandre MD Unavailable [phone] Active Problems Patient Care Coordination No te Formatting of this note migh t be different from the original. Referring provider: Dr. Claudio Ms. Noemy So is a 70-year-old with a lung nodule. 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[place]ving [place] coronary artery of [place] heart without angina pectoris 10/23/2021 History of [...] required) 10/01/2019 Coronary artery disease invo lving [place] coronary artery of [place] heart 02/14/2019 Nonrheumatic aortic valve insufficiency 02/15/20 [...] Pure hypercholesterolemia 12/09/2016 Essential (primary) hypertension 06/05/2015 Current Treatment and Therapy Plans Fruquintinib PO 28 Day Cycles - GI* Plan Start Date:08/20/2024 Plan Provider:Nathan Kaye DO Linked Problems Malignant neoplasm of sigmoi d colon (HCC)Secondary malignant neoplasm of right lung (HCC) Treatment Medications Current Day (Day 1, Cycle 2 - Planned for 09/18/2024) fruquintinib (FRUZAQLA) fruquintinib (FRUZAQLA) 5 mg capsule IV Maintenance Therapy Plan* Plan Start Date:01/04/2024 Plan Provider:Nathan Kaye DO Linked Problems Encounter for management of implanted deviceMalignant neoplasm of sigmoid colon (HCC) Treatment Medications No medications scheduled. Past Treatment and Therapy Plans Line Care Plan Name Start Date Discontinue Date Treatment Medications Discontinue Reason Plan Provider IV MAINTENANCE THERAPY PLAN 08/10/2021 01/05/2023 No medications scheduled. Orders Matt Maloney MD Oncology Chemotherapy Treatment Plan Name Start Date Discontinue Date Treatment Medications Discontinue Reason Plan Provider Cycles Trifluridine/T ipiracil PO BID 28 days/cycle - GI 08/09/2024 No medications scheduled. Progressive Disease Nathan Kaye DO 2 of 12 cycles completed FOLFIRI+Katiana: (Fluorouracil / Leucovorin / Irinotecan / Bevacizumab) 14 Day Cycles - Colon/Rectum 024 04/05/2024 bevacizumab-awwb (MVASI)bevacizumab- awwb (MVASI) IVPBdexAMETHasone (DECADRON)fluoroura cil (ADRUCIL)fluorourac il (ADRUCIL) infusion - for home infusion (ADRUCIL)IRINOtecan (CAMPTOSAR)IRINOtec an (CAMPTOSAR) IVPB in 250 mLleucovorinleucovo rin IVPB in 250 mL Toxicity/Comp lication Nathan Kaye DO 4 of 12 cycles started Capecitabine 7 on 7 off - Colon 02/04/20 23 12/07/2023 capecitabine (XELODA) Progression Nathan Kaye DO 9 of 9 cycles completed mFOLFOX6: (Fluorouracil / Leucovorin / Oxaliplatin) 14 Day Cycles - GI 020 04/21/2022 fluorouracil (ADRUCIL)fluorourac il (ADRUCIL) infusion - for home infusion (ADRUCIL)leucovorin IVPB in 250 mLoxaliplatin (ELOXATIN) IVPB Therapy Complete Matt Maloney MD 10 of 10 cycles started Radiation Treatments (No Episode) * Course [id number]/28/2024 - 09/28/2024 Treatment Period Energy Fraction Dose Fractions Total Dose Plans Planned RT CHESTWALL 09/28/2024 - 09/28/2024 800 1 Reference Points Delivered RIGHT CW_DPV 09/28/2024 - 09/28/2024 800 Lifetime Dose Tracking * Chemical Lifetime Dose Automatic Entry Manual Entr y Fluoro Time 2.595 minutes 2.595 minutes 0 minutes Air kerma at the reference point (Ka,r) 12.15 mGy 1 2.15 mGy 0 mGy DLP 1,472 mGycm 1,472 mGycm 0 mGycm Resolved Problems Problem Noted Date Diagnosed Date Resolved Date Hyperkalemia 12/01/2023 12/02/2023
--- OUTSIDE RECORDS SUMMARY | 2024-11-27 12:10 | XMS_ITS | Clinical Summary ---
Author Organization [facility] Address [facility] [place] [address] Care Team Providers Care Rail Car Maintenance Mechanic Name Role Phone Bunny Chan MD Primary Care Provider [phone] Allergies Active Allergy Reactions Criticality Noted Date Comments Iodine Rash Low 12/16/2017 Penicillin G Benzathine Hives 12/16/2017 Medications vitamin E 100 UNIT capsule Take 100 Units by mouth daily. Active Fish Oil 1000 MG Cap Take 1,000 mg by mouth daily. Active multivitamin tablet Take 1 tablet by mouth daily. Active B Complex Cap capsule Take 1 capsule by mouth daily. Active aspirin EC (ASPIRIN) 81 MG EC tablet Take 81 mg by mouth daily. Active vitamin C 1000 MG tablet Take 1,000 mg by mouth daily. Active biotin 300 MCG Tab Take 1 tablet by mouth daily. Active glucosamine-cho ndroitin 500-400 MG Cap Take 1 capsule by mouth daily. Active Calcium Carb-Cholecalci ferol (CALCIUM CARBONATE-VITAM IN D) 600-200 MG-UNIT tablet Take 1 tablet by mouth daily. Active potassium chloride 10 MEQ Tab CR tablet Take 20 mEq by mouth daily. Active hydrocodone-lilly taminophen 5-325 MG tablet Take 1-2 tablets by mouth every 6 (six) hours as needed for Pain. 20 tablet 01/19/2017 Active Active Problems No known active problems Family History Medical History Relation Comments Diabetes Brother Heart Disease Brother Hypertension Brother Stroke Brother Cancer Father lung CA Heart Disease Father Heart Disease Mother Hypertension Mother recurrent staph infections right leg Son recurrent staph infections right leg Relation Status Comments Brother (Age 59) Father (Age 50s) Mother (Age 65) Son Alive Social History Tobacco Use Types Packs/Day Years Used Date Smoking Tobacco: Never Smokeless Tobacco: Never Alcohol Use Standard Drinks/Week Comments Yes 0 (1 standard drink = 0.6 oz pur e alcohol) 1-2 drinks/monthly Comments Unknown Sex and Gender Information Value Date Recorded Sex Assigned at Not on file Legal Sex Female 8:01 PM CDT Gender Identity Not on file Sexual Orientation Not on file Last Filed Vital Signs Vital Sign Reading Time Taken Comments Blood Pressure 133/80 01/19/2017 2:20 PM INVENTORY AUDIT CLERK Pulse 76 01/19/2017 1:30 PM INVENTORY AUDIT CLERK Temperature 36.6 C (97.9 F) 01/19/2017 2:20 PM INVENTORY AUDIT CLERK Respiratory Rate 20 01/19/2017 2:20 PM INVENTORY AUDIT CLERK Oxygen Saturation 95% 01/19/2017 2:20 PM INVENTORY AUDIT CLERK Inhaled Oxygen Concentration - - Weight 85.8 kg (189 lb 2.5 oz) 01/19/2017 9:48 A M INVENTORY AUDIT CLERK Height 162.6 cm (5' 4) 01/19/2017 9:48 AM INVENTORY AUDIT CLERK Body Mass Index 32.47 01/19/2017 9:48 AM INVENTORY AUDIT CLERK Plan of Treatment Health Maintenance Due Date Last Done Comments Colorectal Cancer Screening Colonoscopy (10 Years) 1952 Hepatitis C 1970 DTaP, Tdap and Td Vaccines ( 1 - Tdap) 10/09/1971 Mammogram Screening 1992 Pneumococcal Vaccine: 50+ Ye ars (1 of 1 - PCV) 2002 Zoster Vaccines (1 of 2) 2002 Annual Medicare Wellness Visit 2017 Dexa Scan (General) 2017 COVID-19 Vaccine ( - 2023-2 5 season) 2024 RSV Immunization or 60+ Years (1 - 1-dose 75+ series) 10/09/2027 Meningococcal B Vaccine Aged Out No l onger eligible based on patient's age to complete this topic Meningococcal Vaccine Aged Out No gabriella randy eligible based on patient's age to complete this topic RSV Immunizations Under 20 Months Aged Out No longer eligible based on patient's age to complete this topic Medical Devices Implanted Type Area Motor Overhauler Device Identifier Shelf Expiration Date Model / Serial / Lot Intro Lead 9fr 1 Chmbr; Peel Perc - [id number] Implanted:Qty: 1 on 01/19/2017 by Ariel Garcia MD at [facility] Left: Chest [employer] 12/28/2017 [id number]-[id number] / / [id number] Insurance MEDICARE [facility] Care Teams Rail Car Maintenance Mechanic Relationship Specialty Start Date End Date Bunny Chan MD PCP - General FAMILY PRACTICE 01/19/17
--- OUTSIDE RECORDS SUMMARY | 2024-11-27 12:10 | XMS_ITS | Encounter Summary ---
Author Organization [facility] Address [address] [address] Care Team Providers Care Continuous Towel Roller Name Role Phone Bunny Chan MD Primary Care Provider [phone] Matt Maloney MD Unavailable [phone] Karen Vieira MD Unavailable Asim Alejandre MD Unavailable + [phone] Nathan Kaye DO Unavailable [phone] Bunny Chan MD Primary Care Provider [phone] Bunny Chan MD Primary Care Provider [phone] Asim Alejandre MD Unavailable [phone]- [phone] Roby Claudio MD Unavailable [phone] Manuel Bravo MD Unavailable [phone] Bunny Chan MD Primary Care Provider [phone] Roby Claudio MD Unavailable [phone] Asim Alejandre MD Unavailable [phone] Encounter Details Date Type Department Care Team (Late st Contact Info) Description 03/14/2014 Orders Only [facility] Health Information Management [address] [place] [address] Scanning, Provider Social History Tobacco Use Types Packs/Day Years Used Date Smoking Tobacco: Never Assessed Comments Unknown Sex and Gender Information Value Date Recorded Sex Assigned at Not on file Legal Sex Female 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 Gender Identity Not on file Sexual Orientation Not on file documented as of this encounter Plan of Treatment Upcoming Encounters Date Type Department Care Team (Late st Contact Info) Description 07/18/2025 7:30 AM CDT Hospital Encounter [facility] [address] [place] [address] Karen Vieira MD [address] [place] [address] 07/18/2025 7:30 AM CDT - 07/18/2025 8:00 AM CDT Surgery [facility] [address] [place] [address] Karen Vieira MD [address] [place] [address] COLONOSCOPY Scheduled Procedures Name Priority Associated Diagnoses Date/Ti me COLONOSCOPY Hx colon cancer 07/18/2025 7:30 AM CDT documented as of this encounter Procedures Procedure Name Priority Date/Time Associated Diagnosis Comments CARDIOLOGY DOCUMENT SCAN 03/14/2014 documented in this encounter Results * SCAN - CARDIOLOGY (03/14/2014) Anatomical Region Laterality Modality Other Provider Scanning CV CARDIAC SERVICES PROCEDURES Final Result documented in this encounter Visit Diagnoses Not on filedocumented in this encounter Additional Health Concerns Infection Onset Date Last Indicated Resolved Time COVID: Suspected 09/16/2021 09/16/2021 09/16/2021 7:44 AM CDT Norovirus suspected 03/19/2024 03/19/2024 03/19/19 4:19 PM HOLE DIGGER TRUCK DRIVER COVID: Suspected 03/19/2024 03/19/2024 03/19/2024 11:53 AM HOLE DIGGER TRUCK DRIVER documented as of this encounter Care Teams Continuous Towel Roller Relationship Specialty Start Date End Date Bunny Chan MD PCP - General 04/08/17 12/30/22 Bunny Chan MD [facility]8 [facility], [facility] [address] [place], [place] [address] PCP - General Family Medicine 12/31/22 06/28/23 Bunny Chan MD [facility]8 [facility], [facility] [address] [place] [address] PCP - General Family Medicine 06/29/23 08/20/24 Bunny Chan MD [address] [place] [address] PCP - General Family Medicine 08/21/24 Matt Maloney MD Medical Oncologist/Hematologis t Hematology and Oncology 12/07/17 11/15/21 Karen Vieira MD [address] [place] [address] Referring Physician General Surgery 11/26/19 Asim Alejandre MD [facility] [address] Rail Equipment Operator Interventional Cardiology 08/13/21 06/28/23 Nathan Kaye DO [facility]8 [facility], [facility] [address] [place] [address] Medical Oncologist/Hematologis t Hematology and Oncology 11/16/21 Asim Alejandre MD 1418 [facility], [facility] [address] [place], [place] [address] Referring Physician Interventional Cardiology 06/29/23 08/20/24 Roby Claudio MD 1418 [facility], [facility] [address] [place] [address] Consulting Physician Pulmonary Disease 12/02/23 5 Manuel Bravo MD [facility]8 [facility] [address] [place] [address] Radiation Oncologist Radiation Oncology 08/17/24 Roby Claudio MD 4600 [facility] [address] [place] [address] Consulting Physician Pulmonary Disease 08/21/24 Asim Alejandre MD [address] [place] [address] [address] [place], [place] [address] Referring Physician Interventional Cardiology 08/21/24 documented as of this encounter
--- NOTE | 2024-11-27 12:28 | PC.NURSE ---
Family has clarified that patient is to be comfort care only-- DNR/DNI. IV fluids stopped. Ice chips/water given with health and wellness coordinator permission. Family remains at bedside. Patient restless on the stretcher-complains of back pain-has home Fentanyl patch in place at this time
--- OUTSIDE RECORDS SUMMARY | 2024-11-27 13:37 | XMS_ITS | Clinical Summary ---
Author Organization [facility] Address On license of [facility] [place] [address] Care Team Providers Care Meteorological Equipment Repairer Name Role Phone Bunny Chan MD Primary Care Provider [phone] Allergies Active Allergy Reactions Criticality Noted Date [...] Comments Blood Pressure 133/80 01/19/2017 2:20 PM CONFECTIONERY COOKER Pulse 76 01/19/2017 1:30 PM CONFECTIONERY COOKER Temperature 36.6 C (97.9 F) 01/19/2017 2:20 PM CONFECTIONERY COOKER Respiratory Rate 20 01/19/2017 2:20 PM CONFECTIONERY COOKER Oxygen Saturation 95% 01/19/2017 2:20 PM CONFECTIONERY COOKER Inhaled Oxygen Concentration - - Weight 85.8 kg (189 lb 2.5 oz) 01/19/2017 9:48 A M CONFECTIONERY COOKER Height 162.6 cm (5' 4) 01/19/2017 9:48 AM CONFECTIONERY COOKER Body Mass Index 32.47 01/19/2017 9:48 AM CONFECTIONERY COOKER Plan of Treatment Health Maintenance Due Date [...] this topic Medical Devices Implanted Type Area Motel Clerk Device Identifier Shelf Expiration Date Model / Serial / Lot Intro Lead 9fr 1 Chmbr; Peel Perc - [id number] Implanted:Qty: 1 on 01/19/2017 by Ariel Garcia MD at [facility] Left: Chest [employer] 12/28/2017 [id number]-[id number] / / [id number] Insurance MEDICARE [facility] Care Teams Meteorological Equipment Repairer Relationship Specialty Start Date End Date Bunny Chan MD PCP - General FAMILY PRACTICE 01/19/17
--- OUTSIDE RECORDS SUMMARY | 2024-11-27 13:37 | XMS_ITS | Encounter Summary ---
Author Organization [facility] Care Team Providers Care Hearing Therapy Director Name Role Phone Bunny Chan MD Primary Care Provider [phone] Matt Maloney MD Unavailable [phone] Karen Vieira MD Unavailable Asim Alejandre MD Unavailable [phone] Nathan Kaye DO Unavailable [phone] Bunny Chan MD Primary Care Provider [phone] Bunny Chan MD Primary Care Provider [phone] Asim Alejandre MD Unavailable [phone] Roby Claudio MD Unavailable [phone] Manuel Bravo MD Unavailable [phone] Bunny Chan MD Primary Care Provider [phone] Roby Claudio MD Unavailable [phone] Asim Alejandre MD Unavailable [phone] Encounter Details Date Type Department Care Team (Latest Contact Info) Description 12/14/2016 Orders Only [facility] ProviderViridiana MD [address] [place] [address] Social History Tobacco Use Types Packs/Day Years Used Date Smoking Tobacco: Never Assessed Comments Unknown Sex and Gender Information Value Date Recorded Sex Assigned at Not on file Legal Sex Female 8:20 PM TEAROOM HOSTESS Gender Identity Not on file Sexual Orientation Not on file documented as of this encounter Plan of Treatment Upcoming Encounters Date Type Department Care Team (Late st Contact Info) Description 07/18/2025 7:30 AM CDT Hospital Encounter [facility] [address] [place] [address] Karen Vieira MD [address] [place] [id number] 07/18/2025 7:30 AM CDT - 07/18/2025 8:00 AM CDT Surgery [facility] [address] [place] [address] Karen Vieira MD [address] [place] [address] COLONOSCOPY Scheduled Procedures Name Priority Associated Diagnoses [...] Norovirus suspected 03/19/2024 03/19/2024 03/19/19 4:19 PM TEAROOM HOSTESS COVID: Suspected 03/19/2024 03/19/2024 03/19/2024 11:53 AM TEAROOM HOSTESS documented as of this encounter Care Teams Hearing Therapy Director Relationship Specialty Start Date End Date Bunny Chan MD PCP - General 04/08/17 12/30/22 Bunny Chan MD [facility]8 [facility], [address] [address] PCP - General Family Medicine 12/31/22 06/28/23 Bunny Chan MD [address] [place] [address] MEDICAL ONCOLOGY, [address] [address] PCP - General Family Medicine 06/29/23 08/20/24 Bunny Chan MD [address] [place] [address] PCP - General Family Medicine 08/21/24 Matt Maloney MD Medical Oncologist/Hematologis t Hematology and Oncology 12/07/17 11/15/21 Karen Vieira MD [address] [place] [address] Referring Physician General Surgery 11/26/19 Asim Aljeandre MD [address] [place] [address] Clinical Case Manager Interventional Cardiology 08/13/21 06/28/23 Nathan Kaye DO [address] [place] [address] MEDICAL ONCOLOGY, [address] [id number] Medical Oncologist/Hematologis t Hematology and Oncology 11/16/21 Asim Alejandre MD 1418 [facility], [facility] 180 [place] [address] Referring Physician Interventional Cardiology 06/29/23 08/20/24 Roby Claudio MD [facility]8 [facility], [facility] [address] [place] [address] Consulting Physician Pulmonary Disease 12/02/23 5 Manuel Bravo MD [facility]8 [facility] [address] [place], [place] [address] Radiation Oncologist Radiation Oncology 08/17/24 Roby Claudio MD [facility]0 [facility] 200 [place] [address] Consulting Physician Pulmonary Disease 08/21/24 Asim Alejandre MD [address] [place], [place] [address] Referring Physician Interventional Cardiology 08/21/24 documented as of this encounter
--- OUTSIDE RECORDS SUMMARY | 2024-11-27 13:37 | XMS_ITS | Encounter Summary ---
Author Organization [facility] Medical [facility] Address [address] [address] Care Team Providers Care Salesperson Used Cars Name Role Phone Bunny Chan MD Primary Care Provider [phone] Matt Maloney MD Unavailable [phone] Karen Vieira MD Unavailable Asim Alejandre MD Unavailable + [phone] Nathan Kaye DO Unavailable [phone] Bunny Chan MD Primary Care Provider + Bunny Chan MD Primary Care Provider +2 Asim Alejandre MD Unavailable +- [phone] Roby Claudio MD Unavailable [phone] Manuel Bravo MD Unavailable [phone] Bunny Chan MD Primary Care Provider +[phone] Roby Claudio MD Unavailable [phone] Asim Alejandre MD Unavailable [phone] Encounter Details Date Type Department Care Team (Late st Contact Info) Description 03/12/2014 Orders Only [facility] [place] [facility] Health Information Management [address] [place] [address] Scanning, Provider Social History Tobacco Use Types Packs/Day Years Used Date Smoking Tobacco: Never Assessed Comments Unknown Sex and Gender Information Value Date Recorded Sex Assigned at Not on file Legal Sex Female 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 Gender Identity Not on file Sexual Orientation Not on file documented as of this encounter Plan of Treatment Upcoming Encounters Date Type Department Care Team (Late st Contact Info) Description 07/18/2025 7:30 AM CDT Hospital [facility] [address] [place] [phone] Karen Vieira MD [address] [place] [address] 07/18/2025 7:30 AM CDT - 07/18/2025 8:00 AM CDT [facility] [address] [place] [phone] Karen Vieira MD [address] [place] [address] COLONOSCOPY Scheduled Procedures Name Priority Associated Diagnoses [...] Norovirus suspected 03/19/2024 03/19/2024 03/19/19 4:19 PM ASSISTANT REAL ESTATE MANAGER COVID: Suspected 03/19/2024 03/19/2024 03/19/2024 11:53 AM ASSISTANT REAL ESTATE MANAGER documented as of this encounter Care Teams Salesperson Used Cars Relationship Specialty Start Date End Date Bunny Chan MD PCP - General 04/08/17 12/30/22 Bunny Chan MD [facility] [address] [place], [place] [address] PCP - General Family Medicine 12/31/22 06/28/23 Bunny Chan MD [facility]8 [facility], [facility] [address] [place] [address] PCP - General Family Medicine 06/29/23 08/20/24 Bunny Chan MD [address] [place] [address] PCP - General Family Medicine 08/21/24 Matt Maloney MD Medical Oncologist/Hematologis t Hematology and Oncology 12/07/17 11/15/21 Karen Vieira MD [address] [place] [address] Referring Physician General Surgery 11/26/19 Asim Alejandre MD [facility]4 [address] [address] Marble Worker Interventional Cardiology 08/13/21 06/28/23 Nathan Kaye DO [facility]8 [facility], [facility] [address] [place] [address] Medical Oncologist/Hematologis t Hematology and Oncology 11/16/21 Asim Alejandre MD 1418 [facility], [facility] [address] [place], [place] [address] Referring Physician Interventional Cardiology 06/29/23 08/20/24 Roby Claudio MD 1418 [facility], [facility] [address] [place] [address] Consulting Physician Pulmonary Disease 12/02/23 5 Manuel Bravo MD [facility]8 [facility] [address] [place] [address] Radiation Oncologist Radiation Oncology 08/17/24 Roby Claudio MD 4600 [facility] [address] [place] [address] Consulting Physician Pulmonary Disease 08/21/24 Asim Alejandre MD [address] [place] [address] [address] [place], [place] [id number] Referring Physician Interventional Cardiology 08/21/24 documented as of this encounter
--- OUTSIDE RECORDS SUMMARY | 2024-11-27 13:37 | XMS_ITS | Encounter Summary ---
Author Organization [facility] Medical Group Address [address] [address] Care Team Providers Care Production Technician Name Role Phone Bunny Chan MD Primary Care Provider +[phone] Matt Maloney MD Unavailable [phone] Karen Vieira MD Unavailable Asim Alejandre MD Unavailable + [phone] Nathan Kaye DO Unavailable [phone] Bunny Chan MD Primary Care Provider +[phone] Bunny Chan MD Primary Care Provider +[phone] Asim Alejandre MD Unavailable +- [phone] Roby Claudio MD Unavailable [phone] Manuel Bravo MD Unavailable Bunny Chan MD Primary Care Provider +[phone] Roby Claudio MD Unavailable [phone] Asim Alejandre MD Unavailable [phone] Encounter Details Date Type Department Care Team (Late st Contact Info) Description 03/14/2014 [place] Only [facility] Information Management [address] [place] [address] Scanning, Provider Social History Tobacco Use Types Packs/Day Years Used Date Smoking Tobacco: Never Assessed Comments Unknown Sex and Gender Information Value Date Recorded Sex Assigned at Not on file Legal Sex Female 8:20 PM FINGERPRINT CLERK Gender Identity Not on file Sexual Orientation Not on file documented as of this encounter Plan of Treatment Upcoming Encounters Date Type Department Care Team (Late st Contact Info) Description 07/18/2025 7:30 AM CDT Hospital Encounter [facility] [address] [place] [address] Karen Vieira MD [address] [place] [phone] 07/18/2025 7:30 AM CDT - 07/18/2025 8:00 AM CDT Surgery [facility] [address] [place] [address] Karen Vieira MD [address] [place] [phone] COLONOSCOPY Scheduled Procedures Name Priority Associated Diagnoses [...] Norovirus suspected 03/19/2024 03/19/2024 03/19/19 4:19 PM FINGERPRINT CLERK COVID: Suspected 03/19/2024 03/19/2024 03/19/2024 11:53 AM FINGERPRINT CLERK documented as of this encounter Care Teams Production Technician Relationship Specialty Start Date End Date Bunny Chan MD PCP - General 04/08/17 12/30/22 Bunny Chan MD [facility]8 [facility], [facility] [address] [place], [place] [id number] PCP - General Family Medicine 12/31/22 06/28/23 Bunny Chan MD [facility]8 [facility], [facility] [address] [place] [address] PCP - General Family Medicine 06/29/23 08/20/24 Bunny Chan MD [address] [place] [address] PCP - General Family Medicine 08/21/24 Matt Maloney MD Medical Oncologist/Hematologis t Hematology and Oncology 12/07/17 11/15/21 Karen Vieira MD [address] [place] [address] Referring Physician General Surgery 11/26/19 Asim Alejandre MD [facility]4 [address] [address] Yard Supervisor [employer] Interventional Cardiology 08/13/21 06/28/23 Nathan Kaye DO [facility]8 [facility], [facility] [address] [place] [address] Medical Oncologist/Hematologis t Hematology and Oncology 11/16/21 Asim Alejandre MD 1418 [facility], [facility] [address] [place], [place] [address] Referring Physician Interventional Cardiology 06/29/23 08/20/24 Roby Claudio MD 1418 [facility], [facility] [address] [place] [address] Consulting Physician Pulmonary Disease 12/02/23 5 Manuel Bravo MD [facility]8 [facility] [address] [place] [address] Radiation Oncologist Radiation Oncology 08/17/24 Roby Claudio MD [address] [facility] [address] [place] [address] Consulting Physician Pulmonary Disease 08/21/24 Asim Alejandre MD [address] [place] [address] 3 [place], [place] [address] Referring Physician Interventional Cardiology 08/21/24 documented as of this encounter
--- OUTSIDE RECORDS SUMMARY | 2024-11-27 13:38 | XMS_ITS | Data Portability ---
Author Organization [facility] Pablotamiko Luis Address [address] [facility] [place] [address] Care Team Providers Care Back Roll Lathe Operator Name Role Phone JUSTINO CHAN Primary Care Provider [phone] ASIM ALEJANDRE Webbing Seamer [employer] BIANCA JULIO Medical Oncologist CARLINE FRANKLIN Reconstructive Dentist Assessment Encounter Date Assessment Date Assessment LastModified by Organization Details LastModified Time 05/09/2024 05/09/2024 Labs completed 1 04/03/2023 Sodium 140, Potassium 3.9, Chloride 103, Co2 26, BUN 15, Creatinine 0.80, Glucose 230, Calcium 9.5, Bilirubin 1.1, Protein 6.5, Albumin 4.0, Alk phos 89, AST 13, ALT 9, eGFR 79 LABS: 12/30/23. Sodium 141, potassium 4.0, chloride 104, CO2 28, BUN 10, creatinine 0.89, total bilirubin 0.7, glucose 135, calcium 10.0, protein 6.8, albumin 3.8, EGFR 69, alkaline phosphate 88, ALT 7, AST 18, cholesterol 132, triglycerides 133, HDL 48, LDL 61, WBC 2.5, hemoglobin 12.7, platelets 377 Labs completed on 06/27/2023 WBC 5.9, Hgb 13.5, Platelets 190, Sodium 137, Potassium 4.5, Chloride 103, Co2 27, BUN 17, Creatinine 0.81, Glucose 183, Calcium 9.3, Bilirubin 1.4, Protein 6.9, albumin 4.2, Alk phos 119, ALT 11, AST 19, Cholesterol 113, Trig 137, HDL 46, LDL 40 ECG done on 06/28/2023 shows normal sinus rhythm with LVH with inferior T wave abnormality QT corrected per my calculation is actually normal compared to previous EKG done 2022 sinus rhythm has replaced atrial fibrillation. ASSESSMENT Paroxysmal atrial fibrillation EKG noted on 05/28/2022 with 1st episode noted and did go back into atrial fibrillation on 03/19/2024 when she developed severe dehydration from chemotherapy and was placed on amiodarone for a period of time which he is off now currently on diltiazem CD. She has a CHADS2 Vasc score of 3 her Xarelto is currently on hold due to recurrent epistaxis despite 3 different cauterizations to her nose by otolaryngology. Coronary artery disease with PTCA and stent of a total occlusion of the right coronary artery with a 3.0 x 20 mm synergy drug-eluting stent in the distal right coronary artery and a 3.0 x 24 mm synergy drug-eluting stent implanted into the proximal right coronary artery with taoist of EDGARD 3 flow. She had an intermediate lesion 60-75% stenosis in a small 2.0-2.25 mm diagonal branch in the proximal portion with some disease in the ostium in light of the small nature of the vessel and it being and intermediate lesion she was treated medically for the diagonal branch. She has mild coronary artery disease in the remaining coronary arteries on catheterization done on 02/05/2019 with resolution of her angina with no ischemia on a treadmill Myoview stress test done on 08/27/2021 Palpitations associated with PACs on EKG Chest pain/pressure, exertional resolved after PCI of the right coronary artery on 02/05/2019 Dyspnea associated with exertion,resolved with PCI to the right coronary artery on 02/05/2019 Mild cardiomyopathy with an ejection fraction of 40% by LV angiogram done on 02/05/2019 with an LVEF of 50% by echocardiogram done on 02/01/2019 and ejection fraction of 60-65% on most recent echocardiogram done on 09/18/2021. Hypertension, controlled Pure hypercholesterolemia, on atorvastatin 80 mg daily with lipids at goal. Tricuspid regurgitation, mild Pulmonary hypertension Aortic regurgitation, trace History of frequent bradycardia noted on 24 hour Holter monitor with normal chronotropic response exercise on a treadmill stress test done in 2014. No history of syncope. So not on a beta-madi History of non-Hodgkin's lymphoma involving the tonsils status post chemotherapy in 2017, now in remission Colon cancer status post resection on October 17, 2019 had a positive lymph nodes and has completed chemotherapy, and lesion removed from the lung in August of 2021 was felt to be metastatic from the colon and then had recurrence in a right bronchus in November of [address] Julio of the [facility], Chemotherapy currently on hold but planning to start a different regimen as she could not tolerate the other regimen of chemotherapy Peripheral neuropathy, likely due to her chemotherapy Chronic cough since she had her lung cancer and lobectomy back in August of 2021 not on an THEO-inhibitor proceeded the losartan and is not any worse with the addition of the losartan. She has cough had ever since she had the lung surgery back in August of 2021. She has tried steroids, inhalers with no improvement in her cough but did get some improvement with Tessalon Perles, resolved since she had a bronchoscopy. Hyperbilirubinemia , defer to her primary care physician evaluate further DNR/DNI as per our discussions on 05/09/2024 Plan - I asked her to liberalize her diet so as to avoid any weight loss and use supplements if necessary. she avoids losing weight from her treatment for her lung cancer. she is scheduled to see her resident care assistant on May 28 for another cauterization to her nose. After that I would like her to try going back on Xarelto staying on the low-dose aspirin. I did tell her when she goes on Xarelto to reduce her aspirin down to 81 mg every other day to see if that helps and if she has recurrence of epistaxis she is to call me. If she continues to have recurrence of epistaxis then we will need to consider a left atrial appendage occluded device. I asked her to continue on diltiazem CD 180 mg daily, losartan 100 mgs daily, aspirin 81 mg daily and when she starts the Xarelto I will have her go to 81 mg every other day after her cautery on 05/28/2024. I asked her to continue the atorvastatin 80 mg daily and metoprolol tartrate 25 mg twice daily as needed if she has any episodes of atrial fibrillation with RVR. I would like her to return as scheduled on 07/04/2023 to see how she is doing on the Eliquis of the reduced dose of aspirin and we will have her obtain a fasting lipid profile, complete metabolic profile and a CBC prior to her follow-up visit. I asked her to return sooner if she has any cardiac issues or problems. CARDIAC TESTING: ECHOCARDIOGRAM 05/28/22 The left ventricle is grossly normal size. Left ventricular systolic function is mildly(45-54) reduced. Ejection Fraction = 45-50%. The right ventricle is normal in size and function. Left atrium is' mildly' dilated by volume. The mitral valve is normal in structure and function. There is mild tricuspid regurgitation. Mild pulmonary hypertension. The aortic valve is normal in structure and function. IVC appears normal in size. Underlying rhythm appears to be atrial fibrillation ECHOCARDIOGRAM 09/18/21. E/E prime ratio is <8 suggesting normal pulmonary wedge pressure and no LV diastolic dysfunction.The left ventricular ejection fraction is normal.Ejection Fraction = 60-65%. ECHOCARDIOGRAM 02/01/2019 which showed mildly dilated left atrium, mild concentric left ventricular hypertrophy, lower limits of normal LVEF of 50%, trace to mild tricuspid regurgitation, mildly dilated aortic root measuring 3.8 cm in diastolic dysfunction grade 1. TREADMILL MYOVIEW STRESS TEST 08/27/2021 showed clinically electrocardiographically normal portion of a treadmill Myoview stress test patient walking total of 7 minute 55 seconds in standard Douglas protocol achieving 9.4 Mets of exercise attaining a maximal heart rate of 162 beats minute which is 106% of her age predicted maximal heart rate with no chest pain, chest pressure, shortness of breath or any ischemic EKG changes. She had elevated blood pressure with appropriate blood pressure response to exercise with a normal chronotropic response to exercise, she had no arrhythmias. Myoview images showed no evidence of ischemia left ventricle, fixed apical defect with normal apical wall motion most consistent with apical thinning artifact which is not unusual finding in a patient with known history of hypertension, normal left ventricular cavity size, TID index, wall motion and calculated left ventricular systolic ejection fraction of 58%. There is no study available for comparison. CARDIAC CATHETERIZATION 02/05/2019 which showed severe single-vessel coronary artery disease involving the proximal right coronary artery which was occluded with [id number]-wh-ofted collateral filling with decision to perform PCI to this lesion as she was having refractory exertional angina despite medical therapy so the total occlusion was crossed and a 70% lesion in the distal right coronary artery was treated with PTCA and stent with a 3.0 x 20 mm synergy drug-eluting stent successfully a reducing the stenosis down to 0% residual stenosis and the proximal right coronary artery was treated with PTCA and stent with a 3.0 x 24 mm drug-eluting Synergy stent at 16 atmospheres in the proximal portion to midportion of the right coronary artery with good apposition of the stent the vessel wall with taoist of EDGARD 3 flow with only a 30% residual stenosis at the level of the acute marginal branch which was not stented since it was mild. There was moderate to severe disease involving a diagonal branch which was 2.2 mm to 2.25 mm in luminal diameter depending on the view it appeared to be anywhere between 60-75% stenosis. There was also some ostial disease but it was mild so decision was made to since it was a small vessel with intermediate stenosis to treated medically as the culprit was likely the right coronary artery. She had mild disease in the remaining coronary arteries with 30-40% stenosis in the proximal LAD as well as mild disease elsewhere. [id number] global left ventricular systolic dysfunction with an ejection fraction of 40% with no significant mitral regurgitation seen on left ventricular cineangiogram. There was right coronary dominance, elevated systemic arterial blood pressure aortic pressure 150/79 mm of mercury. Upper limits of normal left ventricular end-diastolic pressure of 11 mm of mercury. No gradient upon pullback us aortic valve indicating any significant stenosis of the aortic valve. [email or web address] Not available 05/09/2024 09:27:22 07/03/2024 07/03/2024 Labs completed Cholesterol 104, Triglycerides 88, HDL 47, LDL 40, WBC 2.26, Hgb 10.6, Plt 166, Sodium 142, Potassium 3.8, Chloride 105, Co2 28, BUn 17, Creatinine 0.83, Glucose 126, Calcium 9.6, Bilirubin 1.4, protein 6.4, Albumin 4, Alk phos 82, ALT 14, AST 17, eGFR 75 Labs completed 02/01/2024 Sodium 140, Potassium 3.9, Chloride 103, Co2 26, BUN 15, Creatinine 0.80, Glucose 230, Calcium 9.5, Bilirubin 1.1, Protein 6.5, Albumin 4.0, Alk phos 89, AST 13, ALT 9, eGFR 79 LABS: 12/30/23. Sodium 141, potassium 4.0, chloride 104, CO2 28, BUN 10, creatinine 0.89, total bilirubin 0.7, glucose 135, calcium 10.0, protein 6.8, albumin 3.8, EGFR 69, alkaline phosphate 88, ALT 7, AST 18, cholesterol 132, triglycerides 133, HDL 48, LDL 61, WBC 2.5, hemoglobin 12.7, platelets 377 ECG done on 06/28/2023 shows normal sinus rhythm with LVH with inferior T wave abnormality QT corrected per my calculation is actually normal compared to previous EKG done 2022 sinus rhythm has replaced atrial fibrillation. ASSESSMENT Paroxysmal atrial fibrillation EKG noted on 05/28/2022 with 1st episode noted and did go back into atrial fibrillation on 03/19/2024 when she developed severe dehydration from chemotherapy and was placed on amiodarone for a period of time which he is off now currently on diltiazem CD. She has a CHADS2 Vasc score of 3 her Xarelto was held after she had recurrent epistaxis despite 3 different cauterizations to her nose by otolaryngology, however she is back on Xarelto 20 mg at dinner meal each day and her aspirin has been reduced to twice a week and going to go to every other day and hopefully the reduction in the aspirin dose will prevent further epistaxis. Coronary artery disease with PTCA and stent of a total occlusion of the right coronary artery with a 3.0 x 20 mm synergy drug-eluting stent in the distal right coronary artery and a 3.0 x 24 mm synergy drug-eluting stent implanted into the proximal right coronary artery with taoist of EDGARD 3 flow. She had an intermediate lesion 60-75% stenosis in a small 2.0-2.25 mm diagonal branch in the proximal portion with some disease in the ostium in light of the small nature of the vessel and it being and intermediate lesion she was treated medically for the diagonal branch. She has mild coronary artery disease in the remaining coronary arteries on catheterization done on 02/05/2019 with resolution of her angina with no ischemia on a treadmill Myoview stress test done on 08/27/2021 Palpitations associated with PACs on EKG, well controlled on diltiazem Chest pain/pressure, exertional resolved after PCI of the right coronary artery on 02/05/2019 Dyspnea associated with exertion,resolved with PCI to the right coronary artery on 02/05/2019 Cardiomyopathy with an ejection fraction of 40% by LV angiogram done on 02/05/2019 with an LVEF of 50% by echocardiogram done on 02/01/2019 and ejection fraction of 60-65% on most recent echocardiogram done on 09/18/2021. Hypertension, controlled Pure hypercholesterolemia, on atorvastatin 80 mg daily with lipids at goal. Tricuspid regurgitation, mild Pulmonary hypertension Aortic regurgitation, trace History of frequent bradycardia noted on 24 hour Holter monitor with normal chronotropic response exercise on a treadmill stress test done in 2014. No history of syncope. So not on a beta-madi but is tolerating the diltiazem History of non-Hodgkin's lymphoma involving the tonsils status post chemotherapy in 2016, now in remission Colon cancer status post resection on October 17, 2019 had a positive lymph nodes and has completed chemotherapy, and lesion removed from the lung in August of 2021 was felt to be metastatic from the colon and then had recurrence in a right bronchus in November of [address] Julio of the [facility], Chemotherapy currently on hold but planning to start a different regimen as she could not tolerate the other regimen of chemotherapy Peripheral neuropathy, likely due to her chemotherapy Chronic cough since she had her lung cancer and lobectomy back in August of 2021 not on an THEO-inhibitor proceeded the losartan and is not any worse with the addition of the losartan. She has cough had ever since she had the lung surgery back in August of 2021. She has tried steroids, inhalers with no improvement in her cough but did get some improvement with Tessalon Perles, resolved since she had a bronchoscopy. Hyperbilirubinemia , defer to her primary care physician evaluate further DNR/DNI as per our discussions on 05/09/2024 and confirmed on 07/03/2024 Plan - I asked her to liberalize and told her to drink shakes and whatever supplements are necessary to prevent weight loss I told her to eventually get to take an 81 mg aspirin every other day and then at that point I told her just to stay on 81 mg every other day and not try to increase the frequency of the aspirin avoid any further epistaxis since she is also on Eliquis 20 mg each day at the dinner meal. I recommend she continue on diltiazem CD 180 mg daily, losartan 100 mgs daily and , atorvastatin 80 mg daily and metoprolol tartrate 25 mg twice daily as needed if she has any episodes of atrial fibrillation with RVR. I asked her to return in 6 months' time and obtain a fasting lipid profile, complete metabolic profile and a CBC prior to her follow-up visit. I asked her to return sooner if she has any cardiac issues or problems or has recurrent epistaxis. CARDIAC TESTING: ECHOCARDIOGRAM 05/28/22 The left ventricle is grossly normal size. Left ventricular systolic function is mildly(45-54) reduced. Ejection Fraction = 45-50%. The right ventricle is normal in size and function. Left atrium is' mildly' dilated by volume. The mitral valve is normal in structure and function. There is mild tricuspid regurgitation. Mild pulmonary hypertension. The aortic valve is normal in structure and function. IVC appears normal in size. Underlying rhythm appears to be atrial fibrillation ECHOCARDIOGRAM 09/18/21. E/E prime ratio is <8 suggesting normal pulmonary wedge pressure and no LV diastolic dysfunction.The left ventricular ejection fraction is normal.Ejection Fraction = 60-65%. ECHOCARDIOGRAM 02/01/2019 which showed mildly dilated left atrium, mild concentric left ventricular hypertrophy, lower limits of normal LVEF of 50%, trace to mild tricuspid regurgitation, mildly dilated aortic root measuring 3.8 cm in diastolic dysfunction grade 1. TREADMILL MYOVIEW STRESS TEST 08/27/2021 showed clinically electrocardiographically normal portion of a treadmill Myoview stress test patient walking total of 7 minute 55 seconds in standard Douglas protocol achieving 9.4 Mets of exercise attaining a maximal heart rate of 162 beats minute which is 106% of her age predicted maximal heart rate with no chest pain, chest pressure, shortness of breath or any ischemic EKG changes. She had elevated blood pressure with appropriate blood pressure response to exercise with a normal chronotropic response to exercise, she had no arrhythmias. Myoview images showed no evidence of ischemia left ventricle, fixed apical defect with normal apical wall motion most consistent with apical thinning artifact which is not unusual finding in a patient with known history of hypertension, normal left ventricular cavity size, TID index, wall motion and calculated left ventricular systolic ejection fraction of 58%. There is no study available for comparison. CARDIAC CATHETERIZATION 02/05/2019 which showed severe single-vessel coronary artery disease involving the proximal right coronary artery which was occluded with [id number] collateral filling with decision to perform PCI to this lesion as she was having refractory exertional angina despite medical therapy so the total occlusion was crossed and a 70% lesion in the distal right coronary artery was treated with PTCA and stent with a 3.0 x 20 mm synergy drug-eluting stent successfully a reducing the stenosis down to 0% residual stenosis and the proximal right coronary artery was treated with PTCA and stent with a 3.0 x 24 mm drug-eluting Synergy stent at 16 atmospheres in the proximal portion to midportion of the right coronary artery with good apposition of the stent the vessel wall with taoist of EDGARD 3 flow with only a 30% residual stenosis at the level of the acute marginal branch which was not stented since it was mild. There was moderate to severe disease involving a diagonal branch which was 2.2 mm to 2.25 mm in luminal diameter depending on the view it appeared to be anywhere between 60-75% stenosis. There was also some ostial disease but it was mild so decision was made to since it was a small vessel with intermediate stenosis to treated medically as the culprit was likely the right coronary artery. She had mild disease in the remaining coronary arteries with 30-40% stenosis in the proximal LAD as well as mild disease elsewhere. Qsrw-cv-wjzmakol global left ventricular systolic dysfunction with an ejection fraction of 40% with no significant mitral regurgitation seen on left ventricular cineangiogram. There was right coronary dominance, elevated systemic arterial blood pressure aortic pressure 150/79 mm of mercury. Upper limits of normal left ventricular end-diastolic pressure of 11 mm of mercury. No gradient upon pullback us aortic valve indicating any significant stenosis of the aortic valve. [place] [id number] Not available 07/03/2024 14:38:18 Plan of Treatment Reminders Order Date Submit Date Provider Last Modified By Organization Details Last Modified Time Details Appointments None recorded . Lab CBC w/ auto diff [address] [place], [address], 5 14:38:20 lipid panel, serum [address] [place], [address], 5 14:38:20 CMP, serum or plasma [address] [place], [address], 14:38:20 Referral general surgeon referral 2024 025 tracey Jc MD, [address] [facility], [facility] [address], [place], [address], 11:47:18 physical therapis t referral 2024 025 [facility], [address], [place], [address], 16:02:07 Procedures None recorded . Surgeries None recorded . Imaging None recorded . Medication Orders benzonat ate 100 mg capsule 2024 025 [facility][id number], [address] [place], [address], 13:27:41 metoprol ol tartrate 25 mg tablet 2024 025 [email or web address] [facility]acy #[id number], [address] [place], [address], 14:36:16 Patient TargetsNo targets recorded. Patient Instructions Encounter Date Encounter Id Patient Instructions Last Modified By Organization Details Last Modified Time 07/03/2024 [id number] A healthy lifestyle: care instructions [email or web address] Not available 07/03/2024 14:38:20 Reason for Referral General Surgeon Referral for Hernia of abdominal cavity Referring Physician: Justino Chan, Family Medicine, Encounter Date: 07/11/2024 Physical Therapist Referral for Strain of right rhomboid muscle Referring Physician: Justino Chan Family Medicine, Encounter Date: 07/11/2024 Results Created Date Observation Date Name Description Value Unit Range Abnormal Flag Note LastModifiedBy Organization Detail LastModifiedTime 03/28/1903/19/2024 elect isaac morrisongr am No observ ation record ed. BARCODE Not Available 2024 09:12:26 Result Notes None recorded. Problems Name Problem SNOMED Code Status Onset Date Resolution Date Notes Provider Name and Address Organization Details Recorded Time Gastropares is syndrome 105078842 Active 2023 Justino Chan MD Attn: Jaylan gonzalez,[address] [place] [address], [address], [place] - [facility] 4 10:22:45 Atheroscler osis of coronary artery without angina pectoris 8431627276063 03 Active 2023 Justino Chan MD Attn: Jaylan gonzalez,[address] [place], [place], [address] [place] [address] 2, [place] - [facility] 4 10:22:46 Nausea 375441285 Active 2023 Justino Chan MD Attn: Jaylan gonzalez,[address] [place], [place], [address] [place] [address], [place] - [facility] 4 10:22:48 Gastroesoph ageal reflux disease without esophagitis 955321776 Active 2023 Justino Chan MD Attn: Jaylan gonzalez,[address] [place], [address], [place] [facility] 4 10:22:49 Benign essential hypertensio n 4047546 Active 2023 Justino Chan MD Attn: Jaylan gonzalez,[address] [place], [address], [place] [facility] 4 10:22:49 Hypercholes terolemia 80179189 Active 2023 Justino Chan MD Attn: Jaylan gonzalez,[address] [place], [address], [place] [facility] 4 10:22:52 Palpitation s 92556299 Active 2023 Asim Alejandre MD Attn: Jaylan gonzalez,[address] [place], [address], [place] [facility] 4 09:28:57 Long-term current use of anticoagula nt 816377041 Active 2023 Asim Alejandre MD Attn: Jaylan gonzalez,[address], [place], [address], [place] [facility] 4 09:28:58 History of cardiomyopa thy 5236946249063 04 Active 2023 Asim Alejandre MD Attn: Jaylan gonzalez,[address] [facility], [place], [address], [place] [facility] 4 09:29:01 Paroxysmal atrial fibrillatio n 132979471 Active 2023 Asim Alejandre MD Attn: Jaylan gonzalez,[address] [facility], [place], [address], [place] [facility] 4 09:29:02 Essential hypertensio n 13735360 Active 2023 Asim Alejandre MD Attn: Jaylan gonzalez,[address] [facility], [place], [address], [place] [facility] 4 09:29:04 Pure hypercholes terolemia 674610213 Active 2023 Asim Alejandre MD Attn: Jaylan gonzalez,[address] [facility], [place], [address], [place] [facility] 4 09:29:06 Chronic cough 70919068 Active 2024 Asim Alejandre MD Attn: Jaylan gonzalez,[address] [facility], [place], [address], [place] - [facility] 5 14:38:59 Problem Notes None recorded. Procedures Surgical History Date Name Laterality Status Provider Name and Address Organization Details Recorded Time Appendectomy completed Coreen Rivas [facility] [facility] 09:51:03 Angioplasty With Stent completed Coreen Rivas [place] 06/13/2023 09:51:13 insertion of tunneled venous catheter completed Renzo López [place] 07/11/2024 11:30:15 Imaging Results None recorded. Procedure Notes None recorded. Medical Equipment None Reported. Allergies Allergen ID Allergen Name Allergen Category Reaction Reaction Severity Criticality Documentation Date Start Date Code Code System Note Provider Name and Address Organization Details Recorded Time 314083 Adhesive agent (substanc e) environme nt,medica tion other Not available low 07/30/20242021 97444 0007 SNOMED Remov ed skin when taken off on stoma ch only okay on other parts of body Tiffanie Haynes RN null, [facility] 5 13:18:57 359246 iodine medicatio n rash Not available low 07/30/20242017 5933 RxNorm Tiffanie Haynes RN null, [facility] 5 13:19:00 851177 penicilli n G benzathin e medicatio n hives Not available Not available 07/30/20242017 7982 RxValente Haynes RN null, [facility] 5 13:19:01 Medications Name Sig Start Date Stop Date Status Note LastModified by Organization Details LastModified Time compound drug 03/27 completed Not Available Not Available Not Available cyclobenzap rine 10 mg tablet TAKE 1 TABLET BY MOUTH TWICE A DAY 07/11 completed Not Available Not Available Not Available atorvastati n 80 mg tablet TAKE 1 TABLET BY MOUTH EVERY DAY active Not Available Not Available No t Available carvedilol 6.25 mg tablet TAKE 1 TABLET BY MOUTH TWICE A DAY WITH MEALS 06/12 completed Not Available Not Available Not Available prednisone 10 mg tablet PLEASE SEE ATTACHED FOR DETAILED DIRECTION S 01/01 completed Not Available Not Available Not Available tizanidine 2 mg tablet TAKE 1 TABLET BY MOUTH EVERY 8 HOURS NEEDED FOR 30 DAYS active Not Available Not Available No t Available loperamide 2 mg capsule 01/01 completed Not Available Not Available Not Available diltiazem CD 180 mg capsule,ext ended release 24 hr TAKE 1 CAPSULE BY MOUTH EVERY DAY active Not Available Not Available No t Available amiodarone 200 mg tablet Take 1 tablet every day by oral route. 03/27 completed Not Available Not Available Not Available benzonatate 200 mg capsule TAKE ONE CAPSULE BY MOUTH THREE TIMES DAILY 01/01 completed Not Available Not Available Not Available hydrocodone 5 mg-acetamin ophen 325 mg tablet PRN 07/03 completed Not Available Not Available Not Available Compro 25 mg rectal suppository INSERT 1 SUPPOSITO RY RECTALLY (25 MG TOTAL) EVERY 12 HOURS NEEDED FOR NAUSEA AND VOMITING 01/01 completed Not Available Not Available Not Available meloxicam 15 mg tablet TAKE 1 TABLET BY MOUTH EVERY DAY active Not Available Not Available No t Available ondansetron HCl 4 mg tablet TAKE 1 TABLET (4 MG TOTAL) BY MOUTH EVERY 6 (SIX) HOURS NEEDED FOR NAUSEA OR VOMITING 10/12 completed Not Available Not Available Not Available prednisone 20 mg tablet TAKE 3 TABLETS BY MOUTH DAILY active Not Available Not Available No t Available clindamycin HCl 150 mg capsule TAKE 2 CAPSULES BY MOUTH NOW, THEN ONE CAPSULE EVERY 8 HOURS UNTIL GONE 01/01 completed Not Available Not Available Not Available metronidazo le 500 mg tablet TAKE 1 TABLET BY MOUTH 2 TIMES A DAY FOR 6 DAYS. 01/01 completed Not Available Not Available Not Available acetaminoph en 300 mg-codeine 30 mg tablet TAKE 1 TABLET EVERY 4-6 HOURS NEEDED 06/12 completed Not Available Not Available Not Available capecitabin e 500 mg tablet Take 7 tablets every week by oral route for 28 days. 01/01 completed Not Available Not Available Not Available acyclovir 400 mg tablet TAKE 1 TABLET (400 MG TOTAL) BY MOUTH 2 TIMES A DAY 01/01 completed Not Available Not Available Not Available tramadol 50 mg tablet TAKE 1 TABLET BY MOUTH THREE TIMES A DAY NEEDED FOR 30 DAYS active Not Available Not Available No t Available hydromorpho ne 2 mg tablet TAKE 0.5 TABLETS (1 MG TOTAL) BY MOUTH EVERY 4 (FOUR) HOURS NEEDED FOR PAIN FOR UP TO 5 DAYS active Not Available Not Available No t Available amiodarone 400 mg tablet Take 1 tablet twice a day by oral route. 03/27 completed Not Available Not Available Not Available oxycodone-a cetaminophe n 10 mg-325 mg tablet TAKE 1 TABLET BY MOUTH EVERY 4 HOURS NEEDED FOR PAIN FOR UP TO 5 DAYS. active Not Available Not Available No t Available benzonatate 100 mg capsule TAKE 1 CAPSULE BY MOUTH THREE TIMES A DAY NEEDED FOR COUGH active Not Available Not Available No t Available doxycycline monohydrate 100 mg capsule TAKE 1 CAPSULE BY MOUTH TWICE A DAY FOR 6 DOSES 01/01 completed Not Available Not Available Not Available dexamethaso ne 2 mg tablet TAKE 1 TABLET BY MOUTH DAILY WITH BREAKFAST active Not Available Not Available No t Available pantoprazol e 40 mg tablet,destiny yed release TAKE 1 TABLET BY MOUTH EVERY DAY active Not Available Not Available No t Available nitroglycer in 0.4 mg sublingual tablet TAKE 1 TABLET SUBLINGUA LLY EVERY 5 MINUTES FOR 3 DOSES A NEEDED FOR CHEST PAIN. 2023 active Not Available Not Available Not Avai lable gabapentin 300 mg capsule TAKE 1 CAPSULE BY MOUTH EVERY DAY AT NIGHT 05/09 completed Not Available Not Available Not Available diclofenac sodium 75 mg tablet,destiny yed release TAKE 1 TABLET BY MOUTH TWICE A DAY 05/09 completed Not Available Not Available Not Available montelukast 10 mg tablet TAKE 1 TABLET BY MOUTH EVERY DAY AT NIGHT active Not Available Not Available No t Available codeine 10 mg-guaifene sin 100 mg/5 mL oral liquid TAKE 5 ML BY MOUTH EVERY 4 (FOUR) HOURS NEEDED FOR COUGH active Not Available Not Available No t Available lorazepam 1 mg tablet 06/12 completed Not Available Not Available Not Available levofloxaci n 500 mg tablet TAKE 1 TABLET BY MOUTH EVERY DAY FOR 7 DAYS 07/11 completed Not Available Not Available Not Available scopolamine 1 mg over [address] 1 PATCH ON THE SKIN EVERY THIRD DAY. 03/27 completed Not Available Not Available Not Available methylpredn isolone 4 mg tablets in a dose pack TAKE 6 TABLETS ON DAY 1 DIRECTED ON PACKAGE AND DECREASE BY 1 TAB EACH DAY FOR A TOTAL OF 6 DAYS 10/12 completed Not Available Not Available Not Available ondansetron 4 mg disintegrat ing tablet TAKE 1 TABLET BY MOUTH EVERY 4 HOURS NEEDED FOR NAUSEA OR VOMITING 01/01 completed Not Available Not Available Not Available cefdinir 300 mg capsule TAKE 1 CAPSULE (300 MG TOTAL) BY MOUTH TWICE A DAY FOR 6 DAYS 01/01 completed Not Available Not Available Not Available losartan 100 mg tablet TAKE 1 TABLET BY MOUTH EVERY DAY active Not Available Not Available No t Available diltiazem ER (XR/XT) 180 mg capsule,ext ended release 24 hr, controlled TAKE 1 CAPSULE BY MOUTH EVERY DAY 01/01 completed Not Available Not Available Not Available metoclopram kelly 10 mg tablet Take 1 tablet 4 times a day by oral route. 05/09 completed Not Available Not Available Not Available oxycodone 5 mg tablet TAKE 1 TABLET (5 MG TOTAL) BY MOUTH EVERY 6 (SIX) HOURS NEEDED FOR PAIN FOR UP TO 8 DAYS active Not Available Not Available No t Available Adult Low Dose Aspirin 81 mg tablet,destiny yed release Take 1 tablet twice a week by oral route. active Not Available Not Available No t Available cyclobenzap rine 5 mg tablet TAKE 1 TABLET BY MOUTH THREE TIMES A DAY FOR 30 DAYS 07/03 completed Not Available Not Available Not Available metoprolol tartrate 25 mg tablet Take 1 tablet twice a day by oral route as needed. active Not Available Not Available No t Available pregabalin 50 mg capsule TAKE 1 CAPSULE BY MOUTH 3 TIMES A DAY. active Not Available Not Available No t Available Xarelto 20 mg tablet TAKE ONE TABLET BY MOUTH EVERY DAY AT dinner active Not Available Not Available No t Available fluticasone prop.50 mcg spray,suspe n-sod.chlor kelly 0.9% nasal spray kit Take by nasal route. active Not Available Not Available No t Available Vitals Date Recorded Body height Respiratory rate Body mass index (BMI) Body weight Oxygen saturation Oxygen saturation in Arterial blood by Pulse oximetry Heart rate Systolic And Diastolic Provider Name and Address Organization Details Last Updated DateTime 5 162.56 cm 16 /min 28.3 kg/m2 29147.7 4 g 95 % 95 % 80 /min 122/74 mm[Hg] Coreen Rivas [facility] 5 13:57:26 Date Recorded Body height Body mass index (BMI) Body weight Heart rate Oxygen saturation Oxygen saturation in Arterial blood by Pulse oximetry Systolic And Diastolic Provider Name and Address Organization Details Last Updated DateTime 5 162.56 cm 28.6 kg/m2 13843.4 9 g 70 /min 98 % 98 % 122/80 mm[Hg] Abby Christensen MA [facility] 5 09:12:19 Date Recorded Body height Provider Name an d Address Organization Details Last Updated DateTime 07/03/2024 162.56 cm Abby Christensen MA [facility] 025 13:41:42 Date Recorded Body mass index (BMI) Body weight Heart rate Oxygen saturation Oxygen saturation in Arterial blood by Pulse oximetry Systolic And Diastolic Provider Name and Address Organization Details Last Updated DateTime 5 27.9 kg/m2 10459.8 4 g 87 /min 96 % 96 % 128/76 mm[Hg] Angi Richards MA [facility] 5 14:00:44 Date Recorded Body height Body mass index (BMI) Body weight Oxygen saturation Oxygen saturation in Arterial blood by Pulse oximetry Heart rate Systolic And Diastolic Provider Name and Address Organization Details Last Updated DateTime 5 162.56 cm 28.5 kg/m2 28670.7 3 g 96 % 96 % 86 /min 124/82 mm[Hg] Renzo López MA [facility] 5 10:01:00 Date Recorded Body height Oxygen saturation Oxygen saturation in Arterial blood by Pulse oximetry Heart rate Body mass index (BMI) Body weight Systolic And Diastolic Provider Name and Address Organization Details Last Updated DateTime 5 162.56 cm 96 % 96 % 80 /min 24.5 kg/m2 65370.7 1 g 126/82 mm[Hg] Renzo López MA [facility] 5 10:15:37 Social History Question Answer Notes LastModified by [employer] Details LastModified Time Tobacco Smoking Status [facility] 06/13/2023 09:51:34 What Is Your Level Of Caffeine Consumption? None [email or web address] Information not available 06/13/2023 What Was The Date Of Your Most Recent Tobacco Screening? 10/16/2024 [email or web address] Information not available 10/16/2024 Has Tobacco Cessation Counseling Been Provided? No [email or web address] Information not available 06/13/2023 Sex: Unknown Functional Status Question Answer Note LastModified by Organizat ion Details LastModified Time Do you use any illicit or recreational drugs? No Information not available 06/13/2023 Do you or have you ever used any other forms of tobacco or nicotine? No [email or web address] Information not available 06/13/2023 What is your level of alcohol consumption? None [email or web address] Information not available 06/13/2023 Mental Status None recorded. Family History Relationship Description Onset Age of this Age Resolved Age Notes LastModified by Organization Details LastModified Time Father Cerebrovascu lar accident Not available 09:51:46 Father Coronary arterioscler osis [email or web address] Not available 2023 09:51:57 Father Heart disease Not available 2023 09:52:13 Father Hypertensive disorder Not available 2023 09:52:25 Father Hypercholest erolemia [email or web address] Not available 2023 09:52:34 Brother Cerebrovascu lar accident [email or web address] Not available 09:51:46 Brother Coronary arterioscler osis [email or web address] Not available 2023 09:51:57 Brother Diabetes mellitus [email or web address] Not available 2023 09:52:03 Brother Heart disease [email or web address] Not available 2023 09:52:13 Brother Hypertensive disorder [email or web address] Not available 2023 09:52:25 Brother Hypercholest erolemia [email or web address] Not available 2023 09:52:34 Brother Kidney disease Not available 2023 09:52:40 Mother Coronary arterioscler osis Not available 2023 09:51:57 Mother Heart disease [email or web address] Not available 2023 09:52:13 Mother Hypertensive disorder [email or web address] Not available 2023 09:52:25 Mother Hypercholest erolemia Not available 2023 09:52:34 Medical History Condition Response Coronary Artery Disease N Other N High Blood Pressure Y Atrial Fibrillation Y Thyroid Problems N Kidney or Bladder Problems N GI Problems N Depression N COPD N Blood Clots Y Skin Problems N Eating Disorder N Anemia Y Heart Attack (TN) N Anxiety Disorder N Diabetes N Muscle, Joint, or Bone Problems N Arthritis N Seizures/Epilepsy N Acid Reflux (GERD) N Cancer Y Stroke N Asthma N Allergies N ADHD N Substance Abuse N High Cholesterol Y Hepatitis N Liver Disease N Schizophrenia N Headaches N Heart Failure N Osteoporosis N Gynecological HistoryNo gynecological history recorded. Obstetrics History GPAL:G 0 P 0 0 0 0 Immunizations Vaccine Type Date Status Note Provider Nam e and Address Organization Details Recorded Time COVID-19, mRNA, LNP-S, PF, 30 mcg/0.3 mL dose 07/01/2020 completed Not Available [facility] 5 10:09:34 COVID-19, mRNA, LNP-S, PF, 30 mcg/0.3 mL dose 07/22/2020 completed Not Available [facility] 5 10:09:34 COVID-19, mRNA, LNP-S, PF, 30 mcg/0.3 mL dose, kelly-sucrose 04/09/2021 completed Not Available [facility] 025 10:09:34 Past Encounters Encounter ID Performer Location Encounter Start Date Encounter Closed Date Diagnosis/Indication Diagnosis SNOMED-CT Code Diagnosis ICD10 Code Diagnosis IMO Codes Diagnosis Note [id number] Justino Chan MD [facility] [address] [facility] [address] [place] [address] 06/13/2023 09:40:39 06/14/2023 11:19:36 Hypercholesterolemia 50414827 E78.00 condition chronic and at goal continue atorvastat in Benign ess ential hypertension 6194380 I10 conditon chronic and at goal continue juan c diltazem and refill losartin my rx Gastroesop hageal reflux disease without esophagitis 807696242 K21.9 condition chronic and at goal continue the protonix my rx Nausea 871023177 R11.0 condition chronic and at goal refill juan c zofran my rx Atheroscle rosis of coronary artery without angina pectoris 0925626863 95077 I25.10 condition chronc and at goal continue hte xarelto follow with dr alejandre refill nitro Gastropare sis syndrome 546159622 K31.84 conditon chronic and at goal continue the reglan Screening for malignant neoplasm of breast 328365472 Z12.39 [id number] Asim [facility] [address] [facility] [address] [place] [address] 07/01/2023 08:40:39 07/04/2023 09:00:38 Essential hypertension 17527056 I10 Pure hypercholesterolemia 623230694 E78.00 Paroxysmal atrial fibrillation 726709358 I48.0 90 Atheroscle rosis of coronary artery without angina pectoris 4603620466 42803 I25.10 Palpitations 14741471 R0 0.2 Long-term current use of anticoagulant 524897702 Z79.01 History of cardiomyopathy 0015924079 73995 Z86.79 Chronic cough 64048522 R 05.3 [id number] Asim Alejandre MD [facility] [address] [place] [address] 01/02/2024 08:40:43 01/04/2024 16:58:48 Coronary arteriosclerosis in [place] artery 1812438969 107 I25.10 Atheroscle rosis of coronary artery without angina pectoris 3770055018 38917 I25.10 Essential hypertension 14172478 I10 History of cardiomyopathy 0743622602 66353 Z86.79 Long-term current use of anticoagulant 749893348 Z79.01 Pure hypercholesterolemia 302517698 E78.00 Paroxysmal atrial fibrillation 080383742 I48.0 Palpitations 28908250 R0 0.2 Benign ess ential hypertension 4513818 I10 [id number] Justino Chan MD [facility] [place] [facility] [place] [address] [place] [address] 01/18/2024 08:26:36 01/20/2024 09:36:04 Anterior epistaxis 191252456 R04.0 condition acute with rhinorocke t. the rocket is removed the nares is reddened with no active bleeding noted rfer to dr wei if bleeding returns go to the er stat hold the xarelto and baby asa for 5 days. Benign ess ential hypertension 4431123 I10 conditon chronic and at goal continue juan c diltazem and refill losartin my rx Gastroesop hageal reflux disease without esophagitis 240102501 K21.9 condition chronic and at goal continue the protonix my rx Hypercholesterolemia 136 47578 E78.00 condition chronic and at goal continue atorvastat in Atheroscle rosis of coronary artery without angina pectoris 2582778003 50163 I25.10 condition chronc and at goal continue hte xarelto follow with dr alejandre refill nitro Malignant tumor of colon 013937679 C18.9 conditon chronic with resection contine the chemo with dr julio Obesity 674634031 E66.9 [id number] Asim Alejandre MD [facility] [address] [place] [address] 03/27/2024 13:37:04 03/28/2024 10:33:41 Atherosclerosis of coronary artery without angina pectoris 8156086323 62054 I25.10 Essential hypertension 38922120 I10 History of cardiomyopathy 4590131103 68624 Z86.79 Long-term current use of anticoagulant 157745470 Z79.01 Paroxysmal atrial fibrillation 174604141 I48.0 Pure hypercholesterolemia 537468400 E78.00 [id number] Justino Chan MD [facility] [place] [address] [place] [address] 04/09/2024 13:38:30 04/10/2024 10:36:09 Anterior epistaxis 909310217 R04.0 condition acute with rhinorocke t. the rocket is removed the nares is reddened with no active bleeding noted will call dr masterson to advise that it was removed. Atheroscle rosis of coronary artery without angina pectoris 2970426608 45756 I25.10 condition chronc and at goal continue hte xarelto follow with dr alejandre refill nitro Benign ess ential hypertension 7443874 I10 conditon chronic and at goal continue juan c diltazem and refill losartin my rx Gastroesop hageal reflux disease without esophagitis 263058973 K21.9 condition chronic and at goal continue the protonix my rx [id number] Asim Alejandre MD [facility] [address] [place] [address] 05/09/2024 09:03:40 05/10/2024 09:12:35 Atherosclerosis of coronary artery without angina pectoris 4051035260 44780 I25.10 Essential hypertension 22380305 I10 Palpitations 92388157 R0 0.2 Paroxysmal atrial fibrillation 266060090 I48.0 Pure hypercholesterolemia 479804946 E78.00 Long-term current use of anticoagulant 976140768 Z79.01 [id number] Asim Alejandre MD [facility] [address] [facility] [place] [address] 07/03/2024 13:39:32 07/04/2024 17:39:30 Overweight 689614164 E66.3 Essential hypertension 00778478 I10 Long-term current use of anticoagulant 559369446 Z79.01 Palpitations 24472362 R0 0.2 Paroxysmal atrial fibrillation 979995803 I48.0 Pure hypercholesterolemia 648351295 E78.00 Atheroscle rosis of coronary artery without angina pectoris 0580339288 85204 I25.10 Chronic cough 41284010 R 05.3 64697 [id number] Justino Chan MD [facility] [place] [facility] [place] [address] [facility] [address] [place] [address] 07/11/2024 09:48:57 07/13/2024 14:21:30 Hernia of abdominal cavity 14852594 K45.8 9597452 conditon acute rlq. refer to dr theresa jc Strain of right rhomboid muscle 5825457237 9643534 S29.012A 6541454773 condition acute refer to [place] pt Benign ess ential hypertension 9470181 I10 conditon chronic and at goal continue juan c diltazem and refill losartin my rx Atheroscle rosis of coronary artery without angina pectoris 6625836858 79772 I25.10 condition chronc and at goal continue hte xarelto follow with dr alejandre Gastroesop hageal reflux disease without esophagitis 964051703 K21.9 condition chronic and at goal continue the protonix my rx [id number] Justino Chan MD [facility] [place] [facility] [place] [address] [facility] [address] [place] [address] 10/16/2024 09:26:12 10/17/2024 11:47:01 Dehydration 99179255 E86.0 9786 condition acute will send to [facility] stat Asthenia 72055366 R53.1 39754 conditon acute due to no appetite send to [facility] er stat Unable to eat 317465021 R63.8 63399100 condition acute with deydration and wakness send to er stat Weight decreased 2414307 01 R63.4 77011 condition acute due to unable to eat down 24 pounds send to er Malignant tumor of descending colon 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 34048 condiotn chroin cand not at goal with mets to the lung to er stat Health Concerns Section Related Observation LastModified by Organization Detai ls LastModified Time None Recorded Concern Status LastModified by Organization Details LastModified Time None Recorded Advance Directives Directive None Recorded Payers Insurance Date Sequence Insurance Name Policy Number Policy Abdi Covered Member ID Abdi Member ID Guarantor Name 10/13/2024 [place] - [facility] Noemy So [id number] Noemy So 10/13/2024 1 [place] [id number] Noemy So 10/13/2024 2 [facility] (MEDICARE SUPPLEMENT) Noemy So [id number] Noemy So Notes Date Note Type Note Provider Name and Address Organization Details Recorded Time 04/09/2024 text/html states that she was seen in the er tuesday and had the left rhino rocket placed. the bleeding has stopped. hte htn and hte cad is under control sees dr alejandre for hte cardiomyopathy Justino Chan MD Attn: [address] [place], [address], [facility] 04/09/2024 16:27:30 05/09/2024 text/html Ms. So is a 73-year-old female who returns for follow-up visit. She is complaining of some back pain where she had had her lung resection. She was given some muscle relaxers by her primary care physician and scheduled to undergo physical therapy. Last dose of chemo for her colon cancer was last 5 weeks ago due to inability to tolerate the chemotherapy, she is planning to start on a new chemotherapy regimen see if she can tolerate this 1 once it is approved as managed by Dr. Julio of the oncology service. her weight is down another 9 lb in the last 6 weeks and she remains down 28 lb over the last 20 to 21 months secondary to chemotherapy. She says her appetite is adequate. She has not been walking of late due to her back pain. She is off the Xarelto due to recurrent nosebleeds. She has had 3 cauteries to her nose in his scheduled to follow up with Otolaryngology again in 3 weeks. For now she has been off the Xarelto due to these recurrent nosebleeds. She had held her aspirin in his now back on the aspirin without any recurrence of her epistaxis. She is back on diltiazem CD 180 mg daily. She is compliant with her medications. She denies any side effects from her medications except peripheral neuropathy which she has from her chemotherapy. She has not had any palpitations consistent with the atrial fibrillation. She denies any chest pain, shortness of breath, paroxysmal nocturnal dyspnea, orthopnea, dizziness, syncope, palpitations or lower extremity edema. Asim Alejandre MD Attn: [address] [place], [address], [facility] 05/09/2024 09:29:22 07/03/2024 text/html Ms. So is a 73-year-old female who returns for follow-up visit. She has been back on Xarelto for the last 4 weeks and cut down her aspirin to 81 mg once a week and she has been able to tolerate it without any further epistaxis she had had 3 cauteries to her nose by otolaryngology in the previous 3 week period. She is now up to taking the aspirin 81 mg twice a week and has not had any problems in his planning to go to aspirin 3 times a week or every other day. She has not had any further angina since her stents were placed in 2019. She is currently still being treated for her colon cancer with oral chemotherapy as they tell her she is not a candidate for immunotherapy she still follows with Dr.. Julio her oncologist over at the [facility] in [place]. She is down 3 lb since her last visit about 2 months ago and she is down 31 lb over the last 23 months secondary to her chemotherapy. She tells me she has a very good appetite once she is back to walking regularly about 1.5 miles every day that the weather we will allow as long as it is not raining she will walk. She is back on diltiazem CD 180 mg daily and has not had any palpitations and has not had any palpitations consistent with AFib. She is compliant with her medications. She tells me she is once again coughing and she was better when she was on Tessalon Perles but has not been taking him and thinks she needs to get back on them. She denies any side effects from her medications except peripheral neuropathy which she has from her chemotherapy. She denies any chest pain, shortness of breath, paroxysmal nocturnal dyspnea, orthopnea, dizziness, syncope, palpitations or lower extremity edema. Asim Alejandre MD Attn: Accounting, [address] [place], [address], [facility] 07/03/2024 14:41:12 07/11/2024 text/html states that she has right shoulder blade pain has been having abdominal bloating. the htn and the gerd is under control the cad is under control taking her meds as directed. Justino Chan MD Attn: Accounting, [address] [place], [id number], [facility] 07/11/2024 13:28:42 10/16/2024 text/html states that she is unable to eat adn states that she is weak and is losing weight. she is down 24 pounds the htn is under control she is not getting chemo the cad is under control the cad is under control she has dehydrated she has the colon cancer with mets to the lung Justino Chan MD Attn: Accounting, [address] [place], [address], [facility] 10/16/2024 18:27:27 OBGyn Episode No OBEpisode recorded.
--- OUTSIDE RECORDS SUMMARY | 2024-11-27 13:38 | XMS_ITS | Clinical Summary ---
Author Organization [facility] Address [address] [place] [address] Care Team Providers Care Academic Advising Director Name Role Phone Karen Vieira MD Unavailable Nathan Kaye DO Unavailable [phone] Manuel Bravo MD Unavailable [phone] Bunny Chan MD Primary Care Provider [phone] Roby Claudio MD Unavailable [phone] Asim Alejandre MD Unavailable [phone] Allergies Active Allergy Reactions Criticality Noted Date [...] different from the original. Referring provider: Dr. Claduio Ms. 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 10/23/2021 History of [...] required) 10/01/2019 Coronary artery disease invo lving manzanita coronary artery of manzanita heart 02/14/2019 Nonrheumatic aortic valve insufficiency 02/15/20 [...] Care Team Description 10/24/2024 Home Care Visit [address] [place] [address] Amalia Alvarez RN SN TRIAGE ENCOUNTER 10/22/2024 4:00 PM CDT Office Visit [facility] Medicine Physicians [facility] Oncology [address] [facility] [address] [place] [phone] Nathan Kaye DO Malignant neoplasm of sigmoid colon (HCC) (Primary Dx); Cancer associated pain 10/21/2024 Home Care Visit [address] [place] [address] Liliane Tomlin RN SN TRIAGE ENCOUNTER 10/20/2024 Orders Only [facility] Oncology [address] [facility] 6 [place] [address] Andrea Zhu MD 10/20/2024 Telephone [facility] Oncology [address] [place] [phone] Zoila Charles RN 10/16/2024 11:19 AM CDT - 10/18/2024 11:04 AM CDT Hospital Encounter [facility] 5 Med Surg [address] [place] [address] Sera Chacon MD Altwal, MD Heather Anne, Ron James MD Atrial fibrillation with RVR (HCC) (Primary Dx); Nausea and vomiting, unspecified vomiting type; Cancer associated pain Discharge Disposition: Discharge to home or self care 10/03/2024 3:15 PM CDT Office Visit [facility] Oncology [address] [facility] [address] [place] [phone] Vargas, Nathan L., DO Malignant neoplasm of sigmoid colon (HCC) 10/03/2024 2:45 PM CDT Clinical Support [facility] at [address] [address] Malignant neoplasm of sigmoid colon (HCC) 09/28/2024 12:15 PM CDT Treatment [facility] Medical Office Building 2 Radiation Oncology [address] [place] [address] Manuel Bravo MD 09/28/2024 12:00 PM CDT Treatment [facility] Medical Office Building 2 Radiation Oncology [address] [place] [address] Manuel Bravo MD 09/28/2024 8:00 AM CDT Treatment [facility] Medical Office [facility] 2 Radiation Oncology [address] [place] [address] Manuel Bravo MD 09/28/2024 Completion of Therapy [facility] Office [facility] 2 Radiation Oncology [address] [place] [address] Manuel Bravo MD 09/28/2024 Orders Only RAD ONC TREATMENTS Miscellaneous, Not In File 09/28/2024 OTV [facility] Office [facility] 2 Radiation Oncology [address] [place] [address] Manuel Bravo MD 09/26/2024 10:43 PM CDT - 09/28/2024 3:11 PM CDT Hospital Encounter [facility] 5 Med Surg [address] [place] [address] Brigida Marquez MD Sada, MD Obie Ivy, Nicolas Celaya MD Pleural effusion on right (Primary Dx); Rib lesion; Intractable pain; Hypoxemia; Palliative care by specialist [Z51.5]; Cancer-related breakthrough pain [G89.3]; Transient alteration of awareness [R40.4]; Nausea [R11.0]; Opioid-induced constipation [K59.03, T40.2X5A]; Colon cancer metastasized to lung (HCC) [C18.9, C78.00] Discharge Disposition: Discharge to home or self care 09/21/2024 Telephone [facility] Medicine Physicians [facility] Oncology [address] [place] [address] [address] [place] [address] Torrie Johnson, [facility] 09/10/2024 Telephone [facility] Physicians [facility] Oncology [address] [place] [address] [address] [place] [phone] Joseph Camejo CMA 09/05/2024 9:45 AM CDT Office Visit [facility] [place] Oncology [address] [place] [address] [address] [place] [address] Nathan Kaye, Malignant neoplasm of sigmoid colon (HCC) (Primary Dx); 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 Never 09/27/2024 Do you belong to any clubs o r organizations such as denominational groups, unions, fraternal or athletic groups, or [...] any time in the past 12 m [facility], were you homeless or living in a skilled nursing (including now)? No 09/27/2024 Social Connection and Isolation Panel Answer Date Recorded In a typical week, how many times do you talk on the phone with family, friends, or neighbors? More than three times a week 10/17/2024 How often do you get togethe r with friends or relatives? More than three times a week 10/17/2024 How often do you attend chur ch or jainism services? Never 10/17/2024 Do you belong to any clubs o r organizations such as denominational groups, unions, fraternal or athletic groups, or [...] any time in the past 12 m [facility], were you homeless or living in a skilled nursing (including now)? 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 Gender Identity Not on file Sexual Orientation [...] Description 07/18/2025 7:30 AM CDT Hospital Encounter [facility] GI Lab [address] [place] [address] Karen Vieira MD [address] [place] [address] 07/18/2025 7:30 AM CDT - 07/18/2025 8:00 AM CDT Surgery [facility] GI Lab [address] [place] [address] Karen Vieira MD [address] [place] [address] [id number] COLONOSCOPY Scheduled Procedures Name Priority Associated Diagnoses [...] 06/28/2023, 09/17/2019 Medical Devices Implanted Type Area Tube Machine Operator Helper Device Identifier Shelf Expiration Date Model / [...] METABOLIC PANEL Routine 10/17/2024 4:20 AM CDT MS CRITICAL CARE ILL/INJURED PATIENT INIT 30-74 MIN [...] CONTRAST ED 09/27/2024 1 2:57 AM CDT MS CRITICAL CARE ILL/INJURED PATIENT INIT 30-74 MIN Routine 09/26/2024 11:32 PM CDT EGFR STAT 09/26/2024 9:45 PM CDT DIFFERENTIAL AUTO STAT 09/26/2024 9:4 5 PM CDT COMPREHENSIVE METABOLIC PANEL STAT 09/26/2024 9:45 PM CDT CBC WITH AUTO DIFFERENTIAL STAT 09/26/2024 9:45 PM CDT ECG 12-LEAD STAT 09/26/2024 9:35 PM CDT [id number] Routine 09/05/2024 9:17 AM CDT Diffuse histiocytic [...] MAMMOGRAM 2D BILATERAL Routine 01/25/2014 11:00 AM WINDOW GLASS CUTTER OFF from Last 3 Months or Most Recently [...] significant gallbladder wall thickening. No positive sonographic [place] sign reported. BILIARY: There is no intrahepatic [...] Clive Connell M.D. KR: LOUIS Report ID: [id number] Reading Location: [place] [address] Procedure Note Clive Connell MD - 10/17/2024 [...] Nosignificant gallbladder wall thickening. No positive sonographic [place] signreported. BILIARY: There is no intrahepatic or [...] Clive Connell M.D. KR: [place] Report ID: [id number] Reading Location: [place] [address] us Ron Murray MD [facility] MS OCEDURES Final Result * eGFR (10/17/2024 4:20 [...] was last reviewed 2020. Testing performed by: [address] [address] Blood 10/17/2024 4:20 AM CDT 10/17/2024 5:13 AM CDT us Kaye Rae CORN BREEDER LAB BLOOD ORDERABLES Final R esult CAT [address] [facility] Department [place] [address] * (ABNORMAL) Differential, auto (10/17/2024 4:20 AM CDT) Neutrophil abs 5.57 1.50 - 6.50 K/cumm Comment:Testing performed by : [address] [address] Imm gran abs 0.02 0.00 - 0.10 K/cumm [facility] Comment:Testing performed by : [address] [address] Lymphocyte abs 0.17(L) 0.80 - 3.30 K/cumm [facility] Comment:Testing performed by : [address] [address] Monocyte abs 0.05(L) 0.20 - 0.80 K/cumm [facility] Comment:Testing performed by : [address] [address] Eosinophil abs 0.00 0.00 - 0.50 K/cumm [facility] Comment:Testing performed by : [address] [address] Basophil abs 0.00 0.00 - 0.10 K/cumm [facility] Comment:Testing performed by : [address] [address] Neutrophil pct 95.9 % [facility] Comment: Interpretive Data Percent cell count reference ranges are not reported, since discordance with absolute values may lead to misinterpretation of CBC data. Current Interpretive Data was last revised on 2017. Testing performed by: [address] [address] Imm gran pct 0.3 % [facility] Comment: Interpretive Data Percent cell count reference ranges are not reported, since discordance with absolute values may lead to misinterpretation of CBC data. Current Interpretive Data was last revised on 2017. Testing performed by: [address] [address] Lymphocyte pct 2.9 % [facility] Comment: Interpretive Data Percent cell count reference ranges are not reported, since discordance with absolute values may lead to misinterpretation of CBC data. Current Interpretive Data was last revised on 2017. Testing performed by: [address] [address] Monocyte pct 0.9 % [facility] Comment: Interpretive Data Percent cell count reference ranges are not reported, since discordance with absolute values may lead to misinterpretation of CBC data. Current Interpretive Data was last revised on 2017. Testing performed by: [address] [address] Eosinophil pct 0.0 % [facility] Comment: Interpretive Data Percent cell count reference ranges are not reported, since discordance with absolute values may lead to misinterpretation of CBC data. Current Interpretive Data was last revised on 2017. Testing performed by: [address] [address] Basophil pct 0.0 % [facility] Comment: Interpretive Data Percent cell count reference ranges are not reported, since discordance with absolute values may lead to misinterpretation of CBC data. Current Interpretive Data was last revised on 2017. Testing performed by: [address] [address] Blood 10/17/2024 4:20 AM CDT 10/17/2024 5:14 AM CDT Kaye Rae CORN BREEDER LAB BLOOD ORDERABLES Final R esult [facility] Department [place] [address] * (ABNORMAL) CBC with auto differential (10/17/2024 4:20 AM CDT) Pathologist [facility] WBC 5.81 3.80 - 9.90 K/cumm Comment:Testing performed by : [address] [address] Hgb 12.2 11.9 - 15.5 g/dL [facility] Comment:Testing performed by : [address] [address] Hct 38.1 35.6 - 45.5 % [facility] Comment:Testing performed by : [address] [address] Plt 183 150 - 400 K/cumm [facility] Comment:Testing performed by : [address] [address] MPV 10.8 9.1 - 12.3 fL [facility] Comment:Testing performed by : [address] [address] RBC 4.33 3.90 - 5.20 M/cumm [facility] Comment:Testing performed by : [address] [address] MCV 88.0 81.3 - 96.4 fL [facility] Comment:Testing performed by : [address] [address] MCH 28.2 27.1 - 33.3 pg [facility] Comment:Testing performed by : [address] [address] MCHC 32.0(L) 32.3 - 35.7 g/dL [facility] Comment:Testing performed by : [address] [address] RDW CV 14.3 11.1 - 14.9 % CAT Comment:Testing performed by : [address], [address] RDW SD 45.9 35.7 - 48.1 fL CAT Comment:Testing performed by : [address] [address] NRBC abs 0.00 0.00 - 0.01 K/cumm [facility] Comment:Testing performed by : [address] [address] Blood 10/17/2024 4:20 AM CDT 10/17/2024 5:14 AM CDT us Kaye Rae CORN BREEDER LAB BLOOD ORDERABLES Final R esult CAT [address] [facility] Department [place] [address] * Magnesium (10/17/2024 4:20 AM CDT) Magnesium 1.9 1.4 - 2.5 mg/dL Comment:Testing performed by : [address] [address] Blood 10/17/2024 4:20 AM CDT 10/17/2024 5:13 AM CDT us Kaye Rae NP LAB BLOOD ORDERABLES Final R esult CAT [address] Department [place] [address] * (ABNORMAL) Hepatic function panel (10/17/2024 4:20 AM CDT) Bilirubin, total 1.3(H) 0.1 - 1.2 mg/dL Comment:Testing performed by : [address] [address] Bilirubin, direct 0.4(H) 0.1 - 0.3 mg/dL CAT Comment:Testing performed by : [address] [address] Protein, pl 5.5(L) 6.5 - 8.5 g/dL CAT Comment:Testing performed by : [address] [address] Albumin 3.5 3.5 - 5.0 g/dL CAT Comment:Testing performed by : [address] [address] Alk phos 66 40 - 130 Units/L CAT Comment:Testing performed by : [address] [address] ALT 8 7 - 45 Units/L CAT Comment:Testing performed by : [address] [address] AST 10 10 - 45 Units/L CAT Comment:Testing performed by : [address] [address] Blood 10/17/2024 4:20 AM CDT 10/17/2024 5:13 AM CDT us Ron Murray MD LAB BLOOD ORDERABLES Final Result CAT [facility] Department [place] [address] * (ABNORMAL) Basic metabolic panel (10/17/2024 4:20 AM CDT) Sodium 138 135 - 145 mmol/L Comment:Testing performed by : [address] [address] Potassium, pl 4.2 3.3 - 4.9 mmol/L CAT Comment:Testing performed by : [address], [place]., [address] Chloride 100 97 - 110 mmol/L CAT Comment:Testing performed by : [address] [address] CO2 24 22 - 32 mmol/L CAT Comment:Testing performed by : [address], [place]., [address] Anion gap 14 2 - 15 mmol/L CAT Comment:Testing performed by : [address] [address] BUN 16 6 - 25 mg/dL CAT Comment:Testing performed by : [address] [address] Creatinine 0.70 0.60 - 1.10 mg/dL CAT Comment:Testing performed by : [address] [address] Glucose 243(H) 70 - 199 mg/dL CAT [...] was last revised 2022. Testing performed by: [address] [address] Calcium 8.9 8.5 - 10.3 mg/dL CAT Comment:Testing performed by : [facility], [address] [place] [address], [place]., [address] Blood 10/17/2024 4:20 AM CDT 10/17/2024 5:13 AM CDT us Kaye Rae CORN BREEDER LAB BLOOD ORDERABLES Final R esult CAT [address] [facility] Department [place] [address] * MS CRITICAL CARE ILL/INJURED PATIENT INIT 30-74 MIN [...] Keenan Lara M.D. LB: DIAZ Report ID: [id number] Reading Location: [id number] Procedure Note Keenan Lara MD - 10/16/2024 [...] Keenan Lara M.D. LB: DIAZ Report ID: [id number] Reading Location: [place] [address] [facility] [address] PROCEDURES Final Result * Sepsis Lactate w/ Reflex (10/16/2024 11:52 AM CDT) Sepsis Lactate 1.8 0.7 - 2.0 mmol/L Comment:Testing performed by : [facility], [address] [place] [address]., [address] Blood 10/16/2024 11:5 2 AM CDT 10/16/2024 11:59 AM CDT Rehab Oswaldo GOEL LAB BLOOD ORDERABLES Final Resu lt CAT [facility] [address] [facility] Department [place] [address] * Blood culture Blood (10/16/2024 11:52 AM CDT) Report Final Report: No growth Comment:Testing performed by : [facility], [address] [facility], [place] [address] Blood 10/16/2024 11:5 2 AM CDT 10/16/2024 [...] performance characteristics have been verified by the [facility] Microbiology Laboratory. For questions about this culture, contact the Microbiology Laboratory at [phone]. Interpretive data was last revised on 23. us Rehab Oswaldo GOEL LAB MICROBIOLOGY - GENERAL GRIFFIN CISSE Final Result CAT [address] [facility] Department [place] [address] * Blood culture Blood (10/16/2024 11:52 AM CDT) Report Final Report: No growth Comment:Testing performed by : [facility], [address] [facility], [place]., [address] Blood 10/16/2024 11:5 2 AM CDT 10/16/2024 [...] performance characteristics have been verified by the [facility] Microbiology Laboratory. For questions about this culture, contact the Microbiology Laboratory at [phone]. Interpretive data was last revised on 23. Rehab Oswaldo GOEL LAB MICROBIOLOGY - [facility]AL [facility]IN [facility] Final Result CAT [address] [facility] Department [place] [address] * ECG 12 lead (10/16/2024 11:14 AM CDT) Ventricular Rate EKG/Min 150 BPM [facility] Atrial Rate 375 BPM [facility] QRS-Interval (MSEC) 90 ms [facility] QT-Interval (MSEC) 298 ms [facility] QTc 470 ms [facility] R [place] -9 degrees [facility] T [place] 161 degrees [facility] Diagnosis Atrial fibrillation with rapid ventricular [...] GRANADO M.D. (545) on 10/16/2024 3:48:51 PM [facility] 10/16/2024 11:1 4 AM CDT 10/16/2024 3:48 PM CDT Rehab Oswaldo GOEL ECG ORDERABLES Final Result Performing Organization Address [facility] [[email or web address]] Co de Phone Number [facility] Blogic [facility] * eGFR (10/16/2024 11:12 AM CDT) eGFR [...] was last reviewed 2020. Testing performed by: [facility], [address] [place] [address], [place]., [address] Blood 10/16/2024 11:1 2 AM CDT 10/16/2024 11:16 AM CDT Sera Chacon MD LAB BLOOD ORDERABLES Final Resu lt CAT [address] [facility] Department [place] [address] * (ABNORMAL) Differential, auto (10/16/2024 11:12 AM CDT) Neutrophil abs 9.46(H) 1.50 - 6.50 K/cumm Comment:Testing performed by : [address] [address] Imm gran abs 0.07 0.00 - 0.10 K/cumm CAT Comment:Testing performed by : [address] [address] Lymphocyte abs 1.09 0.80 - 3.30 K/cumm CAT Comment:Testing performed by : [address] [address] Monocyte abs 1.07(H) 0.20 - 0.80 K/cumm CAT Comment:Testing performed by : [address] [address] Eosinophil abs 0.12 0.00 - 0.50 K/cumm CAT Comment:Testing performed by : [address] [address] Basophil abs 0.03 0.00 - 0.10 K/cumm CAT Comment:Testing performed by : [address] [address] Neutrophil pct 79.9 % CAT Comment: Interpretive Data Percent cell count reference ranges are not reported, since discordance with absolute values may lead to misinterpretation of CBC data. Current Interpretive Data was last revised on 2017. Testing performed by: [address] [address] Imm gran pct 0.6 % CAT Comment: Interpretive Data Percent cell count reference ranges are not reported, since discordance with absolute values may lead to misinterpretation of CBC data. Current Interpretive Data was last revised on 2017. Testing performed by: [address] [address] Lymphocyte pct 9.2 % CAT Comment: Interpretive Data Percent cell count reference ranges are not reported, since discordance with absolute values may lead to misinterpretation of CBC data. Current Interpretive Data was last revised on 2017. Testing performed by: [address] [address] Monocyte pct 9.0 % [facility] Comment: Interpretive Data Percent cell count reference ranges are not reported, since discordance with absolute values may lead to misinterpretation of CBC data. Current Interpretive Data was last revised on 2017. Testing performed by: [address] [address] Eosinophil pct 1.0 % [facility] Comment: Interpretive Data Percent cell count reference ranges are not reported, since discordance with absolute values may lead to misinterpretation of CBC data. Current Interpretive Data was last revised on 2017. Testing performed by: [address] [address] Basophil pct 0.3 % [facility] Comment: Interpretive Data Percent cell count reference ranges are not reported, since discordance with absolute values may lead to misinterpretation of CBC data. Current Interpretive Data was last revised on 2017. Testing performed by: [address] [address] Blood 10/16/2024 11:1 2 AM CDT 10/16/2024 11:16 AM CDT Rehab Oswaldo GOEL LAB BLOOD ORDERABLES Final Resu lt CAT [address] [facility] Department [place] [address] * (ABNORMAL) Thyroid Function [place] (10/16/2024 11:12 AM CDT) TSH 0.02(L) 0.30 - 4.20 mcIUnit/mL Comment:Testing performed by : [address] [address] Blood 10/16/2024 11:1 2 AM CDT 10/16/2024 11:16 AM CDT us Rehab Oswaldo GOEL LAB BLOOD ORDERABLES Final Resu lt CAT 450 [facility] Department [place] [address] * (ABNORMAL) Urinalysis reflex to microscopic and culture Urine (10/16/2024 11:12 AM CDT) Color, ur Yellow Yellow Comment:Testing performed by : [address] [address] Clarity, ur Clear Clear CAT Comment:Testing performed by : [address] [address] Specific gravity, ur 1.026 1.003 - 1.030 CAT Comment:Testing performed by : [address] [address] pH, urine 6.0 CAT Comment: Interpretive Data U rine pH is affected by diet, medications, systemic acid-base disturbances, and renal tubular function. pH may affect urinary stone formation. For example, urine pH below 6.0 may help reduce the tendency for calcium phosphate stones and pH greater than 6.0 may reduce the tendency for uric acid stone formation. Source: [facility] [employer] Current Interpretive Data was last revised on 2017 Testing performed by: [address] [address] Protein, ur ql Trace(A) Negative CAT [facility] Comment:Testing performed by : [address] [address] Glucose, ur ql Negative Negative CAT Comment:Testing performed by : [address] [address] Ketones, ur Negative Negative CAT Comment:Testing performed by : [address] [address] Bilirubin, ur Negative Negative CAT [facility] Comment:Testing performed by : [address] [address] Blood, ur Negative Negative CAT Comment:Testing performed by : [address] [address] Urobilinogen, ur <2.0 <2.0 mg/dL CAT [facility] Comment:Testing performed by : [address] [address] Nitrite, ur Negative Negative CAT [facility] Comment:Testing performed by : [address] [address] Leukocyte esterase, ur Negative Negative CAT [facility] Comment:Testing performed by : [address] [address] UA reflex comment Reflex to microscopic UA will be performed. CAT [facility] Comment:Testing performed by : [address] [address] Urine 10/16/2024 11:1 2 AM CDT 10/16/2024 11:16 AM CDT Rehab Oswaldo GOEL LAB MICROBIOLOGY - [facility] GRIFFIN CISSE Final Result CAT MATHEWS [facility] Department [place] [address] * (ABNORMAL) CBC with auto differential (10/16/2024 11:12 AM CDT) WBC 11.84(H) 3.80 - 9.90 K/cumm Comment:Testing performed by : [address] [address] Hgb 13.9 11.9 - 15.5 g/dL CAT [facility] Comment:Testing performed by : [address] [address] Hct 43.8 35.6 - 45.5 % CAT [facility] Comment:Testing performed by : [address] [address] Plt 209 150 - 400 K/cumm CAT [facility] Comment:Testing performed by : [address] [address] MPV 9.9 9.1 - 12.3 fL CAT MATHEWS Comment:Testing performed by : [address] [address] RBC 4.96 3.90 - 5.20 M/cumm CAT MATHEWS Comment:Testing performed by : [address] [address] MCV 88.3 81.3 - 96.4 fL CAT MATHEWS Comment:Testing performed by : [address] [address] MCH 28.0 27.1 - 33.3 pg CAT MATHEWS Comment:Testing performed by : [address] [address] MCHC 31.7(L) 32.3 - 35.7 g/dL CAT MATHEWS Comment:Testing performed by : [address] [address] RDW CV 14.4 11.1 - 14.9 % CAT MATHEWS Comment:Testing performed by : [address] [address] RDW SD 46.3 35.7 - 48.1 fL CAT MATHEWS Comment:Testing performed by : [address] [address] NRBC abs 0.00 0.00 - 0.01 K/cumm CAT MATHEWS Comment:Testing performed by : [address] [address] Blood Venous blood specimen / Unknown 10/16/2024 11:12 AM CDT 10/16/2024 11:16 AM CDT us Rehab Oswaldo GOEL LAB BLOOD ORDERABLES Final Resu lt CAT [address] [facility] Department [place] [address] * (ABNORMAL) Urinalysis, microscopic only (10/16/2024 11:12 AM CDT) WBC, ur 0-5 0 - 5 /HPF Comment:Testing performed by : [address] [address] RBC, ur 0-2 0 - 2 /HPF CAT MATHEWS Comment:Testing performed by : [address] [address] Epithelial cells, squamous, ur 21-50(A) 0 - 5 /HPF CAT Comment:Testing performed by : [address] [address] Bacteria, ur 1+(A) CAT Comment:Testing performed by : [address] [address] Mucous, ur Present(A) CAT Comment:Testing performed by : [address] [address] Culture Reflex Comment Reflex conditions for urine culture (WBC >10) not met. CAT Comment:Testing performed by : [address] [address] Urine 10/16/2024 11:1 2 AM CDT 10/16/2024 11:16 AM CDT [facility] LAB URINE ORDERABLES Final Resu lt Performing Organization Address [facility] de Phone Number [address] [employer] [place] [place] [address] * (ABNORMAL) T4, free (10/16/2024 11:12 AM CDT) [facility] Free T4 2.81(H) 0.90 - 1.70 ng/dL Comment:Testing performed by : [address] [address] Blood 10/16/2024 11:1 2 AM CDT 10/16/2024 11:16 AM CDT Narrative CAT - 10/16/2024 12:50 PM CDT This test was reflexed from a TSH result. [facility] GOEL LAB BLOOD ORDERABLES Final Resu lt Performing Organization Address [facility] de Phone Number [address] [place] [address] * Lipase (10/16/2024 11:12 AM CDT) [facility] Lipase 12 10 - 99 Units/L Comment:Testing performed by : [address] [address] Blood Venous blood specimen / Unknown 10/16/2024 11:12 AM CDT 10/16/2024 11:16 AM CDT us Rehab Oswaldo GOEL LAB BLOOD ORDERABLES Final Resu lt [facility] [address] [facility] Department [place] [address] * (ABNORMAL) Comprehensive metabolic panel (10/16/2024 11:12 AM CDT) Sodium 142 135 - 145 mmol/L Comment:Testing performed by : [address] [address] Potassium, pl 3.8 3.3 - 4.9 mmol/L CAT Comment:Testing performed by : [address] [address] Chloride 100 97 - 110 mmol/L CAT Comment:Testing performed by : [address] [address] CO2 29 22 - 32 mmol/L CAT Comment:Testing performed by : [address] [address] Anion gap 13 2 - 15 mmol/L CAT Comment:Testing performed by : [address] [address] BUN 25 6 - 25 mg/dL CAT Comment:Testing performed by : [address] [address] Creatinine 0.90 0.60 - 1.10 mg/dL CAT Comment:Testing performed by : [address] [address] Glucose 142 70 - 199 mg/dL CAT [...] was last revised 2022. Testing performed by: [address] [address] Calcium 10.3 8.5 - 10.3 mg/dL CAT Comment:Testing performed by : [address] [address] Bilirubin, total 2.1(H) 0.1 - 1.2 mg/dL CAT Comment:Testing performed by : [address] [address] Protein, pl 7.1 6.5 - 8.5 g/dL CAT Comment:Testing performed by : [address] [address] Albumin 4.2 3.5 - 5.0 g/dL CAT Comment:Testing performed by : [address] [address] Alk phos 77 40 - 130 Units/L CAT Comment:Testing performed by : [address] [address] ALT 11 7 - 45 Units/L CAT Comment:Testing performed by : [address] [address] AST 17 10 - 45 Units/L CAT Comment:Testing performed by : [address] [address] Blood 10/16/2024 11:1 2 AM CDT 10/16/2024 11:16 AM CDT us Rehab Oswaldo GOEL LAB BLOOD ORDERABLES Final Resu lt CAT MATHEWS [address] [facility] Department of Laboratories [place], [place] [id number] * eGFR (10/03/2024 2:54 PM CDT) eGFR [...] was last reviewed 2020. Testing performed by: [address] [address] Blood 10/03/2024 2:54 PM CDT 10/03/2024 2:58 PM CDT us Nathan Kaye DO LAB BLOOD ORDERABLES Final R esult CAT [address] [facility] Department [place] [address] * Differential, auto (10/03/2024 2:54 PM CDT) Neutrophil abs 5.88 1.50 - 6.50 K/cumm Comment:Testing performed by : [address] [address] Imm gran abs 0.04 0.00 - 0.10 K/cumm CAT Comment:Testing performed by : [address] [address] Lymphocyte abs 1.11 0.80 - 3.30 K/cumm CAT Comment:Testing performed by : [address] [address] Monocyte abs 0.56 0.20 - 0.80 K/cumm CAT Comment:Testing performed by : [address] [address] Eosinophil abs 0.07 0.00 - 0.50 K/cumm CAT Comment:Testing performed by : [address] [address] Basophil abs 0.02 0.00 - 0.10 K/cumm CAT Comment:Testing performed by : [address] [address] Neutrophil pct 76.5 % [facility] Comment: Interpretive Data Percent cell count reference ranges are not reported, since discordance with absolute values may lead to misinterpretation of CBC data. Current Interpretive Data was last revised on 2017. Testing performed by: [address] [address] Imm gran pct 0.5 % [facility] Comment: Interpretive Data Percent cell count reference ranges are not reported, since discordance with absolute values may lead to misinterpretation of CBC data. Current Interpretive Data was last revised on 2017. Testing performed by: [address] [address] Lymphocyte pct 14.5 % [facility] Comment: Interpretive Data Percent cell count reference ranges are not reported, since discordance with absolute values may lead to misinterpretation of CBC data. Current Interpretive Data was last revised on 2017. Testing performed by: [address] [address] Monocyte pct 7.3 % [facility] Comment: Interpretive Data Percent cell count reference ranges are not reported, since discordance with absolute values may lead to misinterpretation of CBC data. Current Interpretive Data was last revised on 2017. Testing performed by: [address] [address] Eosinophil pct 0.9 % [facility] Comment: Interpretive Data Percent cell count reference ranges are not reported, since discordance with absolute values may lead to misinterpretation of CBC data. Current Interpretive Data was last revised on 2017. Testing performed by: [address] [address] Basophil pct 0.3 % [facility] Comment: Interpretive Data Percent cell count reference ranges are not reported, since discordance with absolute values may lead to misinterpretation of CBC data. Current Interpretive Data was last revised on 2017. Testing performed by: [address] [address] Blood 10/03/2024 2:54 PM CDT 10/03/2024 2:58 PM CDT us Nathan Kaye DO LAB BLOOD ORDERABLES Final R esult [facility] [address] [facility] Department of Laboratories [place], [place] [id number] * CBC with auto differential (10/03/2024 2:54 PM CDT) WBC 7.68 3.80 - 9.90 K/cumm Comment:Testing performed by : [address] [address] Hgb 12.4 11.9 - 15.5 g/dL CAT Comment:Testing performed by : [address] [address] Hct 38.0 35.6 - 45.5 % CAT Comment:Testing performed by : [address] [address] Plt 251 150 - 400 K/cumm CAT Comment:Testing performed by : [address] [address] MPV 10.1 9.1 - 12.3 fL CAT Comment:Testing performed by : [address] [address] RBC 4.36 3.90 - 5.20 M/cumm CAT Comment:Testing performed by : [address] [address] MCV 87.2 81.3 - 96.4 fL CAT Comment:Testing performed by : [address] [address] MCH 28.4 27.1 - 33.3 pg CAT MATHEWS Comment:Testing performed by : [address] [address] MCHC 32.6 32.3 - 35.7 g/dL CAT Comment:Testing performed by : [address] [address] RDW CV 13.7 11.1 - 14.9 % CAT Comment:Testing performed by : [address] [address] RDW SD 44.0 35.7 - 48.1 fL CAT Comment:Testing performed by : [address] [address] NRBC abs 0.00 0.00 - 0.01 K/cumm CAT Comment:Testing performed by : [address] [address] ANC Prelim 5.88 1.50 - 6.50 K/cumm CAT Comment: Interpretive Data The rapid ANC is a preliminary automated count and may vary from the final ANC (Neut Abs) reported in the WBC differential that follows. Current interpretive data was last revised 2024. Testing performed by: [address] [address] Blood 10/03/2024 2:54 PM CDT 10/03/2024 2:58 PM CDT Nathan Kaye DO LAB BLOOD ORDERABLES Final R esult Performing Organization Address City/State/[facility] [[email or web address]] Co de Phone Number CAT [phone] [facility] Department [place] [address] * (ABNORMAL) CEA (10/03/2024 2:54 PM CDT) [facility] Signature CEA 25.3(H) <=5.0 ng/mL Comment: Interpretive Data: Reference Range: Non-Smokers: 0.0 5.0 ng/mL Smokers: 0.0 6.5 ng/mL The Yuly CEA assay procedure was used. Results from different manufacturers or methods may not be comparable. Serial testing should be performed using the same method. Current interpretive data was last revised 2022. Testing performed by: [address] [address] Blood 10/03/2024 2:54 PM CDT 10/03/2024 4:17 PM CDT Nathan Kaye DO LAB BLOOD ORDERABLES Final R esult [facility] [address] [facility] Department [place] [address] * (ABNORMAL) Comprehensive metabolic panel (10/03/2024 2:54 PM CDT) Sodium 142 135 - 145 mmol/L Comment:Testing performed by : [address] [address] Potassium, pl 3.7 3.3 - 4.9 mmol/L CAT Comment:Testing performed by : [address] [address] Chloride 104 97 - 110 mmol/L CAT Comment:Testing performed by : [address] [address] CO2 28 22 - 32 mmol/L CAT Comment:Testing performed by : [address] [address] Anion gap 10 2 - 15 mmol/L CAT Comment:Testing performed by : [address] [address] BUN 13 6 - 25 mg/dL CAT Comment:Testing performed by : [address] [address] Creatinine 0.80 0.60 - 1.10 mg/dL CAT Comment:Testing performed by : [address] [address] Glucose 136 70 - 199 mg/dL CAT [...] was last revised 2022. Testing performed by: [address] [address] Calcium 8.3(L) 8.5 - 10.3 mg/dL CAT Comment:Testing performed by : [address] [address] Bilirubin, total 1.0 0.1 - 1.2 mg/dL CAT Comment:Testing performed by : [address] [address] Protein, pl 6.2(L) 6.5 - 8.5 g/dL CAT Comment:Testing performed by : [address] [address] Albumin 3.7 3.5 - 5.0 g/dL CAT Comment:Testing performed by : [address] [address] Alk phos 76 40 - 130 Units/L CAT Comment:Testing performed by : [address] [address] ALT 7 7 - 45 Units/L CAT Comment:Testing performed by : [address] [address] AST 11 10 - 45 Units/L CAT Comment:Testing performed by : [address] [address] Blood 10/03/2024 2:54 PM CDT 10/03/2024 2:58 PM CDT us Nathan Kaye DO LAB BLOOD ORDERABLES Final R esult CAT MATHEWS [address] [facility] Department [place] [address] * RAD ONC ARIA SESSION SUMMARY (09/28/2024 [...] * eGFR (09/28/2024 10:56 AM CDT) Pathologist [facility] eGFR 68 >=60 mL/min/1. 73 m2 Comment: [...] was last reviewed 2020. Testing performed by: [facility], [address] [place] [address], [place]., [address] Blood 09/28/2024 10:5 6 AM CDT 09/28/2024 11:20 AM CDT us Kaci Coronado [employer] LAB BLOOD ORDERABLES Final Re sult [facility] [address] [facility] Department [place] [address] * CBC without differential (09/28/2024 10:56 AM CDT) WBC 8.27 3.80 - 9.90 K/cumm Comment:Testing performed by : [address] [address] Hgb 11.9 11.9 - 15.5 g/dL CAT Comment:Testing performed by : [address] [address] Hct 36.6 35.6 - 45.5 % CAT Comment:Testing performed by : [address] [address] Plt 350 150 - 400 K/cumm CAT Comment:Testing performed by : [address] [address] MPV 9.8 9.1 - 12.3 fL CAT Comment:Testing performed by : [address] [address] RBC 4.14 3.90 - 5.20 M/cumm CAT Comment:Testing performed by : [address] [address] MCV 88.4 81.3 - 96.4 fL CAT Comment:Testing performed by : [address] [address] MCH 28.7 27.1 - 33.3 pg CAT Comment:Testing performed by : [address] [address] MCHC 32.5 32.3 - 35.7 g/dL CAT Comment:Testing performed by : [address] [address] RDW CV 13.9 11.1 - 14.9 % CAT Comment:Testing performed by : [address] [address] RDW SD 45.0 35.7 - 48.1 fL CAT Comment:Testing performed by : [address] [address] NRBC abs 0.00 0.00 - 0.01 K/cumm CAT MATHEWS Comment:Testing performed by : [address] [address] Blood 09/28/2024 10:5 6 AM CDT 09/28/2024 11:20 AM CDT Kaci Coronado [employer] LAB BLOOD ORDERABLES Final Re sult CAT [address] [facility] Department [place] [address] * (ABNORMAL) Comprehensive metabolic panel (09/28/2024 10:56 AM CDT) Sodium 144 135 - 145 mmol/L Comment:Testing performed by : [address] [address] Potassium, pl 3.8 3.3 - 4.9 mmol/L CAT Comment:Testing performed by : [address] [address] Chloride 102 97 - 110 mmol/L CAT Comment:Testing performed by : [address] [address] CO2 31 22 - 32 mmol/L CAT Comment:Testing performed by : [address] [address] Anion gap 11 2 - 15 mmol/L CAT Comment:Testing performed by : [address] [address] BUN 17 6 - 25 mg/dL CAT Comment:Testing performed by : [address] [address] Creatinine 0.90 0.60 - 1.10 mg/dL CAT Comment:Testing performed by : [address] [address] Glucose 167 70 - 199 mg/dL CAT [...] was last revised 2022. Testing performed by: [address] [address] Calcium 10.1 8.5 - 10.3 mg/dL CAT Comment:Testing performed by : [address] [address] Bilirubin, total 0.8 0.1 - 1.2 mg/dL CAT Comment:Testing performed by : [address] [address] Protein, pl 5.9(L) 6.5 - 8.5 g/dL CAT Comment:Testing performed by : [address] [address] Albumin 3.6 3.5 - 5.0 g/dL CAT Comment:Testing performed by : [address] [address] Alk phos 82 40 - 130 Units/L CAT Comment:Testing performed by : [address] [address] ALT 6(L) 7 - 45 Units/L CAT Comment:Testing performed by : [address] [address] AST 12 10 - 45 Units/L CAT Comment:Testing performed by : [address] [address] Blood 09/28/2024 10:5 6 AM CDT 09/28/2024 11:20 AM CDT us Kaic Coronado [employer] LAB BLOOD ORDERABLES Final Re sult CAT [facility] Department [place] [address] * eGFR (09/27/2024 5:20 AM CDT) Pathologist [facility] eGFR 64 >=60 mL/min/1. 73 m2 Comment: [...] was last reviewed 2020. Testing performed by: [address] [address] Blood 09/27/2024 5:20 AM CDT 09/27/2024 5:27 AM CDT Caty Olson MD LAB BLOOD ORDER MOE Final Result CAT [address] [facility] Department [place] [address] * CBC without differential (09/27/2024 5:20 AM CDT) [facility] WBC 5.28 3.80 - 9.90 K/cumm Comment:Testing performed by : [address] [address] Hgb 13.6 11.9 - 15.5 g/dL CAT Comment:Testing performed by : [address] [address] Hct 42.0 35.6 - 45.5 % CAT MATHEWS Comment:Testing performed by : [address] [address]254 Plt 340 150 - 400 K/cumm CAT Comment:Testing performed by : [address] [address] MPV 10.0 9.1 - 12.3 fL CAT Comment:Testing performed by : [address] [address] RBC 4.68 3.90 - 5.20 M/cumm CAT Comment:Testing performed by : [address] [address] MCV 89.7 81.3 - 96.4 fL CAT Comment:Testing performed by : [address] [address] MCH 29.1 27.1 - 33.3 pg CAT Comment:Testing performed by : [address] [address] MCHC 32.4 32.3 - 35.7 g/dL CAT Comment:Testing performed by : [address] [address] RDW CV 13.6 11.1 - 14.9 % CAT Comment:Testing performed by : [address] [address] RDW SD 44.6 35.7 - 48.1 fL CAT Comment:Testing performed by : [address] [address] NRBC abs 0.00 0.00 - 0.01 K/cumm CAT Comment:Testing performed by : [address] [address] Blood 09/27/2024 5:20 AM CDT 09/27/2024 5:27 AM CDT us Caty Olson MD LAB BLOOD ORDER MOE Final Result CAT [address] [facility] Department [place] [address] * (ABNORMAL) Basic metabolic panel (09/27/2024 5:20 AM CDT) Sodium 140 135 - 145 mmol/L Comment:Testing performed by : [address] [address] Potassium, pl 3.5 3.3 - 4.9 mmol/L CAT Comment:Testing performed by : [address] [address] Chloride 99 97 - 110 mmol/L CAT Comment:Testing performed by : [address] [address] CO2 29 22 - 32 mmol/L CAT Comment:Testing performed by : [address] [address] Anion gap 12 2 - 15 mmol/L CAT Comment:Testing performed by : [address] [address] BUN 7 6 - 25 mg/dL CAT Comment:Testing performed by : [address] [address] Creatinine 0.95 0.60 - 1.10 mg/dL CAT Comment:Testing performed by : [address] [address] Glucose 202(H) 70 - 199 mg/dL CAT [...] was last revised 2022. Testing performed by: [address] [address] Calcium 10.4(H) 8.5 - 10.3 mg/dL CAT Comment:Testing performed by : [address] [address] Blood 09/27/2024 5:20 AM CDT 09/27/2024 5:27 AM CDT Caty Olson MD LAB BLOOD ORDER MOE Final Result CAT [address] [facility] Department [place] [address] * (ABNORMAL) Urinalysis reflex to microscopic and culture Urine (09/27/2024 1:35 AM CDT) Color, ur Straw Yellow Comment:Testing performed by : [address] [address] Clarity, ur Clear Clear CAT Comment:Testing performed by : [address] [address] Specific gravity, ur 1.035(H) 1.003 - 1.030 CAT Comment:Testing performed by : [address] [address] pH, urine 7.5 CAT Comment: Interpretive Data U rine pH is affected by diet, medications, systemic acid-base disturbances, and renal tubular function. pH may affect urinary stone formation. For example, urine pH below 6.0 may help reduce the tendency for calcium phosphate stones and pH greater than 6.0 may reduce the tendency for uric acid stone formation. Source: [facility] [employer] Current Interpretive Data was last revised on 2017 Testing performed by: [address] [address] Protein, ur ql Negative Negative CAT Comment:Testing performed by : [address] [address] Glucose, ur ql Negative Negative CAT MATHEWS Comment:Testing performed by : [address] [address] Ketones, ur Negative Negative CAT MATHEWS Comment:Testing performed by : [address] [address] Bilirubin, ur Negative Negative CAT MATHEWS Comment:Testing performed by : [facility] [address] [place] [address], [place]., [address] Blood, ur Negative Negative CAT MATHEWS Comment:Testing performed by : [address], [place]., [address] Urobilinogen, ur <2.0 <2.0 mg/dL CAT MATHEWS Comment:Testing performed by : [facility] [address] [place] [address], [place]., [address] Nitrite, ur Negative Negative CAT MATHEWS Comment:Testing performed by : [address], [place]., [address] Leukocyte esterase, ur 1+(A) Negative CAT MATHEWS Comment:Testing performed by : [address], [place]., [address] UA reflex comment Reflex to microscopic UA will be performed. CAT MATHEWS Comment:Testing performed by : [facility] [address] [place] [address], [place]., [address] Urine 09/27/2024 1:35 AM CDT 09/27/2024 1:41 AM CDT us Brigida Marquez MD LAB MICROBIOLOGY - GENER AL ORDERABLES Final Result CAT [address] [facility] Department [place] [address] * (ABNORMAL) Urinalysis, microscopic only (09/27/2024 1:35 AM CDT) WBC, ur 0-5 0 - 5 /HPF Comment:Testing performed by : [facility] [address] [place] [address]., [address] RBC, ur 0-2 0 - 2 /HPF CAT MATHEWS Comment:Testing performed by : [address] [address] Epithelial cells, squamous, ur 6-10(A) 0 - 5 /HPF CAT MATHEWS Comment:Testing performed by : [address], [place]., [address] Mucous, ur Present(A) CAT MATHEWS Comment:Testing performed by : [address], [place]., [address] Culture Reflex Comment Reflex conditions for urine culture (WBC >10) not met. CAT MATHEWS Comment:Testing performed by : [facility], [address] [facility], [place]., [address] Urine 09/27/2024 1:35 AM CDT 09/27/2024 1:41 AM CDT us Brigida Marquez MD LAB URINE ORDERABLES Fin al Result [facility] [address] [facility] Department [place] [address] * CT Recon Thoracic and Lumbar Spine [...] and alignment. Minimal disc disease for age. [id number] facet arthropathy moderate diffuse anterior marginal osteophytosis [...] Rojelio Dunn M.D. AR: IDALIA Report ID: [id number] Reading Location: [id number] Procedure Note Rojelio Dunn MD - 09/27/2024 [...] and alignment. Minimal disc disease for age. Eury-az-ounddang facet arthropathy moderatediffuse anterior marginal osteophytosis in [...] Rojelio Dunn M.D. AR: AR Report ID: [id number] Reading Location: [place] [address] us Brigida Marquez MD IMG CT PROCEDURES [...] Rojelio Dunn M.D. AR: IDALIA Report ID: [id number] Reading Location: [id number] Procedure Note Rojelio Dunn MD - 09/27/2024 [...] Rojelio Dunn M.D. AR: IDALIA Report ID: [id number] Reading Location: [id number] Brigida Marquez MD IMG CT PROCEDURES Final [...] Rojelio Dunn M.D. AR: IDALIA Report ID: [id number] Reading Location: [id number] Procedure Note Rojelio Dunn MD - 09/27/2024 [...] Rojelio Dunn M.D. AR: IDALIA Report ID: [id number] Reading Location: [place] [address] us Brigida Marquez MD IMG CT PROCEDURES Final Result * [facility] ILL/INJURED PATIENT INIT 30-74 MIN [...] was last reviewed 2020. Testing performed by: [address] [address] Blood 09/26/2024 9:45 PM CDT 09/26/2024 9:48 PM CDT us Brigida Marquez MD LAB BLOOD ORDERABLES Fin al Result [facility] [address] [facility] Department [place] [address] * Differential, auto (09/26/2024 9:45 PM CDT) Pathologist [facility] Neutrophil abs 3.30 1.50 - 6.50 K/cumm Comment:Testing performed by : [address] [address] Imm gran abs 0.01 0.00 - 0.10 K/cumm CAT Comment:Testing performed by : [address] [address] Lymphocyte abs 1.66 0.80 - 3.30 K/cumm CAT Comment:Testing performed by : [address] [address] Monocyte abs 0.54 0.20 - 0.80 K/cumm [facility] Comment:Testing performed by : [address] [address] Eosinophil abs 0.12 0.00 - 0.50 K/cumm [facility] Comment:Testing performed by : [address] [address] Basophil abs 0.03 0.00 - 0.10 K/cumm [facility] Comment:Testing performed by : [address] [address] Neutrophil pct 58.4 % [facility] Comment: Interpretive Data Percent cell count reference ranges are not reported, since discordance with absolute values may lead to misinterpretation of CBC data. Current Interpretive Data was last revised on 2017. Testing performed by: [address] [address] Imm gran pct 0.2 % [facility] Comment: Interpretive Data Percent cell count reference ranges are not reported, since discordance with absolute values may lead to misinterpretation of CBC data. Current Interpretive Data was last revised on 2017. Testing performed by: [address] [address] Lymphocyte pct 29.3 % [facility] Comment: Interpretive Data Percent cell count reference ranges are not reported, since discordance with absolute values may lead to misinterpretation of CBC data. Current Interpretive Data was last revised on 2017. Testing performed by: [address] [address] Monocyte pct 9.5 % [facility] Comment: Interpretive Data Percent cell count reference ranges are not reported, since discordance with absolute values may lead to misinterpretation of CBC data. Current Interpretive Data was last revised on 2017. Testing performed by: [address] [address] Eosinophil pct 2.1 % [facility] Comment: Interpretive Data Percent cell count reference ranges are not reported, since discordance with absolute values may lead to misinterpretation of CBC data. Current Interpretive Data was last revised on 2017. Testing performed by: [address] [address] Basophil pct 0.5 % [facility] Comment: Interpretive Data Percent cell count reference ranges are not reported, since discordance with absolute values may lead to misinterpretation of CBC data. Current Interpretive Data was last revised on 2017. Testing performed by: [address] [address] Blood 09/26/2024 9:45 PM CDT 09/26/2024 9:48 PM CDT us Brigida Marquez MD LAB BLOOD ORDERABLES Fin al Result CAT [facility] Department [place] [address] * CBC with auto differential (09/26/2024 9:45 PM CDT) WBC 5.66 3.80 - 9.90 K/cumm Comment:Testing performed by : [address] [address] Hgb 12.6 11.9 - 15.5 g/dL [facility] Comment:Testing performed by : [address] [address] Hct 39.0 35.6 - 45.5 % [facility] Comment:Testing performed by : [address] [address] Plt 308 150 - 400 K/cumm [facility] Comment:Testing performed by : [address] [address] MPV 9.6 9.1 - 12.3 fL [facility] Comment:Testing performed by : [address] [address] RBC 4.39 3.90 - 5.20 M/cumm [facility] Comment:Testing performed by : [address] [address] MCV 88.8 81.3 - 96.4 fL [facility] Comment:Testing performed by : [address] [address] MCH 28.7 27.1 - 33.3 pg [facility] Comment:Testing performed by : [address] [address] MCHC 32.3 32.3 - 35.7 g/dL [facility] Comment:Testing performed by : [address] [address] RDW CV 13.9 11.1 - 14.9 % [facility] Comment:Testing performed by : [address] [address] RDW SD 44.6 35.7 - 48.1 fL [facility] Comment:Testing performed by : [address] [address] NRBC abs 0.00 0.00 - 0.01 K/cumm [facility] Comment:Testing performed by : [address] [address] Blood 09/26/2024 9:45 PM CDT 09/26/2024 9:48 PM CDT us Brigida Maruqez MD LAB BLOOD ORDERABLES Fin al Result CAT [facility] Department of Laboratories [place], [place] [id number] * (ABNORMAL) Comprehensive metabolic panel (09/26/2024 9:45 PM CDT) Sodium 142 135 - 145 mmol/L Comment:Testing performed by : [address] [address] Potassium, pl 3.3 3.3 - 4.9 mmol/L [facility] Comment:Testing performed by : [address] [address] Chloride 100 97 - 110 mmol/L [facility] Comment:Testing performed by : [address] [address] CO2 28 22 - 32 mmol/L [facility] Comment:Testing performed by : [address] [address] Anion gap 14 2 - 15 mmol/L [facility] Comment:Testing performed by : [address] [address] BUN 8 6 - 25 mg/dL [facility] Comment:Testing performed by : [address] [address] Creatinine 1.01 0.60 - 1.10 mg/dL CAT Comment:Testing performed by : [address] [address] Glucose 139 70 - 199 mg/dL [facility] Comment: Interpretive Data Fasting glucose >/= [...] was last revised 2022. Testing performed by: [address] [address] Calcium 10.4(H) 8.5 - 10.3 mg/dL [facility] Comment:Testing performed by : [address] [address] Bilirubin, total 1.3(H) 0.1 - 1.2 mg/dL [facility] Comment:Testing performed by : [address] [address] Protein, pl 7.0 6.5 - 8.5 g/dL [facility] Comment:Testing performed by : [address] [address] Albumin 4.0 3.5 - 5.0 g/dL [facility] Comment:Testing performed by : [address] [address] Alk phos 97 40 - 130 Units/L [facility] Comment:Testing performed by : [address] [address] ALT 10 7 - 45 Units/L [facility] Comment:Testing performed by : [facility], [address] [place] [address]., [address] AST 19 10 - 45 Units/L CAT Comment:Testing performed by : [facility], [address] [place] [address]., [address] Blood 09/26/2024 9:45 PM CDT 09/26/2024 9:48 PM CDT Brigida Marquez MD LAB BLOOD ORDERABLES Fin al Result [facility] [address] [facility] Department [place] [address] * ECG 12 lead (09/26/2024 9:35 PM CDT) Pathologist [facility] Ventricular Rate EKG/Min 82 BPM [facility] Atrial Rate 82 BPM [facility] MS-Interval (MSEC) 174 ms [facility] QRS-Interval (MSEC) 100 ms [facility] QT-Interval (MSEC) 374 ms [facility] QTc 436 ms [facility] P [place] 52 degrees [facility] R [place] -34 degrees [facility] T [place] 144 degrees [facility] Diagnosis Normal sinus rhythm Left axis deviation Left ventricular hypertrophy with repolarization abnormality Abnormal ECG When compared with ECG of 19-MAR-2024 12:38, Sinus rhythm has replaced Atrial fibrillation Confirmed by ZAIDA HAWTHORNE M.D. ([id number]) on 09/27/2024 7:06:12 PM [facility] 09/26/2024 9:35 PM CDT 09/27/2024 7:06 PM CDT us Brigida Marquez MD ECG ORDERABLES Final Re sult [facility] * [id number] (09/05/2024 9:17 AM CDT) MSI-HIGH NOT DETECTED 09/12/2024 9:53 AM CDT [facility] TMB 9.46 mut/Mb 09/12/2024 9:53 AM CDT [facility] TUMOR FRACTION 0.2% 09/12/2024 9:53 AM CDT [facility] Blood specimen (specimen) Venous blood specimen / Unknown 09/05/2024 9:17 AM CDT 09/06/2024 2:00 AM CDT Narrative This result has genomic variants that were not included in this document. Barbara Hernandes [facility] GENETIC TESTING Final Result [facility] [address] [place] [address], [facility] [phone] [facility] [address] [place] [address] * eGFR (09/05/2024 9:15 AM CDT) eGFR [...] was last reviewed 2020. Testing performed by: [facility], [address] [place] [address]., [address] Blood 09/05/2024 9:15 AM CDT 09/05/2024 9:22 AM CDT us Barbara Blackmon Cecilio [employer] LAB BLOOD ORDERABLES Final Result CAT [address] [facility] Department of Laboratories [place], [place] [id number] * (ABNORMAL) Differential, auto (09/05/2024 9:15 AM CDT) Neutrophil abs 6.78(H) 1.50 - 6.50 K/cumm Comment:Testing performed by : [address] [address] Imm gran abs 0.11(H) 0.00 - 0.10 K/cumm CAT Comment:Testing performed by : [address] [address] Lymphocyte abs 1.71 0.80 - 3.30 K/cumm CAT Comment:Testing performed by : [address] [address] Monocyte abs 0.86(H) 0.20 - 0.80 K/cumm CAT Comment:Testing performed by : [address] [address] Eosinophil abs 0.03 0.00 - 0.50 K/cumm CAT Comment:Testing performed by : [address] [address] Basophil abs 0.01 0.00 - 0.10 K/cumm CAT Comment:Testing performed by : [address] [address] Neutrophil pct 71.3 % CAT Comment: Interpretive Data Percent cell count reference ranges are not reported, since discordance with absolute values may lead to misinterpretation of CBC data. Current Interpretive Data was last revised on 2017. Testing performed by: [address] [address] Imm gran pct 1.2 % CAT Comment: Interpretive Data Percent cell count reference ranges are not reported, since discordance with absolute values may lead to misinterpretation of CBC data. Current Interpretive Data was last revised on 2017. Testing performed by: [address] [place]., [address] Lymphocyte pct 18.0 % [facility] Comment: Interpretive Data Percent cell count reference ranges are not reported, since discordance with absolute values may lead to misinterpretation of CBC data. Current Interpretive Data was last revised on 2017. Testing performed by: [address] [address] Monocyte pct 9.1 % [facility] Comment: Interpretive Data Percent cell count reference ranges are not reported, since discordance with absolute values may lead to misinterpretation of CBC data. Current Interpretive Data was last revised on 2017. Testing performed by: [address] [address] Eosinophil pct 0.3 % [facility] Comment: Interpretive Data Percent cell count reference ranges are not reported, since discordance with absolute values may lead to misinterpretation of CBC data. Current Interpretive Data was last revised on 2017. Testing performed by: [address] [address] Basophil pct 0.1 % [facility] Comment: Interpretive Data Percent cell count reference ranges are not reported, since discordance with absolute values may lead to misinterpretation of CBC data. Current Interpretive Data was last revised on 2017. Testing performed by: [address] [address] Blood 09/05/2024 9:15 AM CDT 09/05/2024 9:22 AM CDT Barbara Hernandes [employer] LAB BLOOD ORDERABLES Final Result CAT [address] [facility] Department [place] [address] * (ABNORMAL) CBC with auto differential (09/05/2024 9:15 AM CDT) [facility] WBC 9.50 3.80 - 9.90 K/cumm Comment:Testing performed by : [address] [address] Hgb 11.5(L) 11.9 - 15.5 g/dL CAT Comment:Testing performed by : [address] [address] Hct 34.6(L) 35.6 - 45.5 % CAT Comment:Testing performed by : [address] [address] Plt 268 150 - 400 K/cumm CAT Comment:Testing performed by : [address] [address] MPV 9.7 9.1 - 12.3 fL CAT Comment:Testing performed by : [address] [address] RBC 3.93 3.90 - 5.20 M/cumm CAT Comment:Testing performed by : [address] [address] MCV 88.0 81.3 - 96.4 fL CAT Comment:Testing performed by : [address] [address] MCH 29.3 27.1 - 33.3 pg CAT Comment:Testing performed by : [address] [address] MCHC 33.2 32.3 - 35.7 g/dL CAT Comment:Testing performed by : [address] [address] RDW CV 15.1(H) 11.1 - 14.9 % CAT Comment:Testing performed by : [address], [address] RDW SD 48.6(H) 35.7 - 48.1 fL CAT Comment:Testing performed by : [address] [address] NRBC abs 0.00 0.00 - 0.01 K/cumm CAT Comment:Testing performed by : [address] [address] ANC Prelim 6.78(H) 1.50 - 6.50 K/cumm CAT Comment: Interpretive Data The rapid ANC is a preliminary automated count and may vary from the final ANC (Neut Abs) reported in the WBC differential that follows. Current interpretive data was last revised 2024. Testing performed by: [address] [address] Blood 09/05/2024 9:15 AM CDT 09/05/2024 9:22 AM CDT Barbara Hernandes NP LAB BLOOD ORDERABLES Final Result Performing Organization Address [facility] de Phone Number [address] [place] [address] * (ABNORMAL) CEA (09/05/2024 9:15 AM CDT) CEA 18.9(H) <=5.0 ng/mL Comment: Interpretive Data: Reference Range: Non-Smokers: 0.0 5.0 ng/mL Smokers: 0.0 6.5 ng/mL The Yuly CEA assay procedure was used. Results from different manufacturers or methods may not be comparable. Serial testing should be performed using the same method. Current interpretive data was last revised 2022. Testing performed by: [address] [address] Blood 09/05/2024 9:15 AM CDT 09/05/2024 11:47 AM CDT Barbara Hernandes NP LAB BLOOD ORDERABLES Final Result Performing Organization Address [facility] de Phone Number [address] [employer] [place] [address] * (ABNORMAL) Comprehensive metabolic panel (09/05/2024 9:15 AM CDT) Pathologist [facility] Sodium 139 135 - 145 mmol/L Comment:Testing performed by : [address] [address] Potassium, pl 3.9 3.3 - 4.9 mmol/L CAT Comment:Testing performed by : [address] [address] Chloride 102 97 - 110 mmol/L CAT Comment:Testing performed by : [address] [address] CO2 27 22 - 32 mmol/L CAT Comment:Testing performed by : [address], [place]., [address] Anion gap 10 2 - 15 mmol/L [facility] Comment:Testing performed by : [address], [place]., [address] BUN 17 6 - 25 mg/dL [facility] Comment:Testing performed by : [address], [place]., [address] Creatinine 0.70 0.60 - 1.10 mg/dL [facility] Comment:Testing performed by : [address] [address] Glucose 132 70 - 199 mg/dL [facility] Comment: Interpretive Data Fasting glucose >/= [...] was last revised 2022. Testing performed by: [address] [address] Calcium 9.5 8.5 - 10.3 mg/dL [facility] Comment:Testing performed by : [address] [address] Bilirubin, total 1.4(H) 0.1 - 1.2 mg/dL CAT Comment:Testing performed by : [address] [address] Protein, pl 6.5 6.5 - 8.5 g/dL CAT Comment:Testing performed by : [address] [address] Albumin 4.1 3.5 - 5.0 g/dL [facility] Comment:Testing performed by : [facility], [address] [place] [address]., [address] Alk phos 91 40 - 130 Units/L CAT Comment:Testing performed by : [address] [address] ALT 6(L) 7 - 45 Units/L CAT Comment:Testing performed by : [address] [address] AST 11 10 - 45 Units/L CAT Comment:Testing performed by : [address] [address] Blood 09/05/2024 9:15 AM CDT 09/05/2024 9:22 AM CDT us Barbara Hernandes NP LAB BLOOD ORDERABLES Final Result CAT [address] [facility] Department [place] [address] * Colonoscopy (06/28/2023 7:44 AM CDT) Anatomical Region Laterality Modality Other Narrative Procedure Note Karen Vieira MD - 06/28/2023 7:44 AM CDT [facility] END[facility] Patient Name: Joseph Rodriguez Procedure Date: 06/28/2023 7:44 AM Date of : 1950 Admit Type: Outpatient Age: 72 Gender: Female Attending MD: Karen Vieira M.D. Room: [facility] ENDOSCOPY ROOM 05 Note Status: Finalized Procedure: [...] The scope was passed under direct vision.The [id number] colonoscope was introduced through theanus and advanced [...] On: 06/28/2023 7:44 AM Recognized by the [place] [employer] for promoting quality in endoscopy us Karen Vieira MD ENDOSCOPY PROCEDURES Final Resul t * Screening Mammogram 2D Bilateral (01/25/2014 11:00 AM WINDOW GLASS CUTTER OFF) Anatomical Region Laterality Modality Breast Bilateral Mammography 01/25/2014 11:0 0 AM WINDOW GLASS CUTTER OFF Impressions 01/28/2014 8:07 AM WINDOW GLASS CUTTER OFF INCOMPLETE:BI-RAD 0 NEED ADDITIONAL IMAGING EVALUATION Right breast focal asymmetry and CC view asymmetries. Additional imaging is recommended. The patient will be contacted. No mammographic evidence malignancy involving the left breast. Recommend routine annual screening mammography on the left. Electronically signed by: Dominick Will md/:01/25/2014 11:42:05 Stripper Machine Operator: Ynes VALDEZ(Angela)(M), [facility] letter sent: Additional Imaging Reading location: BI-RADS: 0 INCOMPLETE:NEED ADDITIONAL IMAGING EVALUATION [EOD] Narrative 01/28/2014 8:07 AM WINDOW GLASS CUTTER OFF - CHRISTOPHER BILATERAL SCREENING W/CAD BILATERAL DIGITAL [...] Electronically signed by: Dominick Will md/:01/25/2014 11:42:05 Stripper Machine Operator: Ynes VALDEZ(R)(M), [facility] letter sent: Additional Imaging Reading location: BI-RADS: 0 INCOMPLETE:NEED ADDITIONAL IMAGING EVALUATION [EOD] us Bunny Chan MD IMG MAMMO PROCEDURES Final Resu lt from Last 3 Months or Most Recently Relevant to Health Maintenance [place] [address] MEDICARE [facility] [place] [address] MEDICARE [place] [facility] [place] [facility] Advance Directives For more information, please contact: [phone] Documents on File Type Date Recorded Patient 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 Scaler And Mixer Expl anation ADVANCE DIRECTIVE 11/30/2023 11:04 AM Christin r of [employer] * Full Code (Latest Code Status on [...] 3:43 PM 05/29/2022 7:49 PM Care Teams Academic Advising Director Relationship Specialty Start Date End Date Bunny Chan MD [address] [place] [address] [address] [place] [address] PCP - General Family Medicine 08/21/24 Karen Vieira MD [facility] [address] [place] [address] Referring Physician General Surgery 11/26/19 Nathan Kaye DO [address] [facility], [facility] [address] [place], [place] [address] Medical Oncologist/Hematologis t Hematology and Oncology 11/16/21 Manuel Bravo MD [address] [address] Radiation Oncologist Radiation Oncology 08/17/24 Roby Claudio MD [address] [address] Consulting Physician Pulmonary Disease 08/21/24 Asim Alejandre MD [address] [place] [address] Referring Physician Interventional Cardiology 08/21/24
--- OUTSIDE RECORDS SUMMARY | 2024-11-27 13:38 | XMS_ITS ---
Author Organization [facility] Address [address] [place] [id number] Care Team Providers Care [employer] Teacher Name Role Phone Karen Vieira MD Unavailable Nathan Kaye DO Unavailable [phone] Manuel Bravo MD Unavailable [phone] Bunny Chan MD Primary Care Provider [phone] Roby Claudio MD Unavailable [phone] Asim Alejandre MD Unavailable [phone] Active Problems Patient Care Coordination No te [...] (05/12/2022): Added automatically from request for surgery [id number] Hiatal hernia 04/27/2022 Palpitations 04/15/2022 BMI 32.0-32.9,adult [...] exertion 10/23/2021 Coronary artery disease invo lving cowlitz coronary artery of cowlitz heart without angina pectoris 10/23/2021 History of [...] required) 10/01/2019 Coronary artery disease invo lving cowlitz coronary artery of cowlitz heart 02/14/2019 Nonrheumatic aortic valve insufficiency 02/15/20 [...]
[2024-11-27] MEDS: ONDANSETRON INJ 4 MG/2 ML VIAL 8 MG IV PUSH (13:59)
[2024-11-27] MEDS: diazePAM INJ (*CRX) 10 MG/2 ML SYRINGE 5 MG IV PUSH (14:00)
[2024-11-27] MEDS: HYDROmorphone HCL INJ (*CRX) 1 MG/ML SYR IV PUSH (14:00)
[2024-11-27 14:25] LABS: Add Urine Microscopic? YES; Appearance Urine Turbid (Clear); Glucose Urine UA Negative (Negative); Leukocyte Esterase Ur 2+ LEU/UL (Negative); Need Manual Microscopic Reviewed; Nitrate Urine Negative (Negative); Specific Grav Ur 1.029 (1.001-1.035)
--- NOTE | 2024-11-27 14:30 | ADMGEN ---
This patient, Noemy So, was admitted to 3 [facility] Surg Room 318-01. Patient/family oriented to hospital policies and general routines including ID bracelet, bed and alarms, visiting hours, pain management, procedures, bathroom and other care routines, personal items, smoking policy, room service/diet, and visiting hours. Information on how to activate the Rapid Response Team has been discussed. Patient/Family are encouraged to report perceived risks to care and to ask questions if they do not understand what they are told or what they should do.
[2024-11-27] MEDS: HYDROmorphone HCL/PF (*CRX) 50 MG in SODIUM CHLORIDE 0.9% IV 95 ML IV CONT (14:38)
[2024-11-27] MEDS: PROCHLORPERAZINE EDISYLATE 10 MG/2 ML VIAL IV PUSH ×2 (16:46→23:05)
--- NOTE | 2024-11-27 16:55 | P.HP_ITS ---
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 In late 2018 she was diagnosed with colon cancer. She was treated with chemotherapy for that and did well until 2 years later when she had metastases to the right lung. She had a lobectomy and did well until November of 2023. At that point her cancer had returned in the lungs in the bone and possibly in the liver and lymph nodes. She was treated at [facility]. She underwent chemotherapy and radiation therapy again. In early 2024 she was diagnosed with having esophageal metastases and possibly liver metastases and lung metastases that included the incision line from her prior surgery. She was also found to have bone metastases. She was having chronic back pain. She was treated medically and with palliative chemotherapy. However her pain increased in she never was completely comfortable because she did not like to take medication. In September of 2024 she was admitted to hospice upon the recommendation of her oncologist. She continued to have back and some abdominal pain. She had not had a normal bowel movement since September of 2023 and had not had a full meal since October 08, 2024. She was subsisting on strawberry lemonade putting ensured diluted with apple juice, popsicles, and smoothies. However most of these would be vomited within 10 minutes of eating. She was also vomiting up quite a bit of her medication. However she remained relatively independent going up and down stairs until 2 weeks prior to admission to the hospital. She was unable to move about much since 2 weeks ago. Was not able to tolerate medications or liquids. During the last 5 days vomiting became fairly continuous and triggered by any movement. Previously been triggered by eating. Because of unrelenting pain in the back and abdomen that was deep and aching in nature and 10/10 and because of persistent nausea with emesis she consented to come to the hospital. Prior to be admitted to the hospital she declined use of rectal medication for symptom relief. Prior to hospitalization her morphine does was a total of 180 mg per day but the majority of that was lost due to emesis. Current PPS score is 20. 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 Congestive heart failure, unspecified Coronary artery disease Atrial fibrillation with RVR Essential hypertension Surgical History Surgical History (Updated 11/27/24 @ 17:44 by Clive Ferreira MD) Stented coronary artery 12/2018 History of lobectomy of lung Family History Family History (Updated 11/27/24 @ 17:46 by Clive Ferreira MD) Father Carcinoma of colon Lung cancer COPD (chronic obstructive pulmonary disease) Mother Acute myocardial infarction, Onset Age: 68 Other Unknown family medical history Social History Social History (Updated 11/27/24 @ 17:46 by Clive Ferreira MD) Social History: Lives in a duplex she shared with her son. 3 times. Lifelong nonsmoker. Occasionally had wine but no other alcohol. 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 Code status is DNR. Spiritual care concerns: No Meds Home Medications and Allergies Allergies Allergy/AdvReac Type Severity Reaction Status Date / Time adhesive AdvReac Intermediate Rash Verified 11/27/24 14:30 Vital Signs Vital Signs - 24 hr 11/27/24 14:38 11/27/24 15:20 Pulse Rate 122 H Respiratory Rate 24 H Oxygen Delivery Room Air Exam Narrative: GENERAL: Gaunt elderly female lying in semi-recumbent position in hospital bed in no acute distress HEENT: Sclerae nonicteric, pharyngeal mucosa pink and intact NECK: No JVD, adenopathy, or thyromegaly CHEST: Decreased breath sounds right chest clear left chest, normal effort HEART: NL S1/S2, tachycardic, irregularly irregular rate, no audible murmur ABDOMEN: BS hypoactive, soft, nontender, no mass, no bruits EXTREMITIES: No edema NEUROLOGIC: CN intact and symmetric to inspection MUSCULOSKELETAL: No gross deformities visual inspection PSYCH: Drowsy but arouses easily, oriented to person only, follows simple commands Assessment and Plan Assessment and plan (1) Hospice care: Code(s): Z51.5 - Encounter for palliative care Status: Acute Assessment and Plan: * Meet inpatient hospice criteria due to requiring continue his IV hydromorphone at 0.5 milligrams/hour for control of pain and scheduled IV prochlorperazine 10 mg every 6 hours and dexamethasone 4 mg every 12 hours for control of nausea with emesis * P.r.n. palliative regimen ordered * 11/27/2024 Discussed care and prognosis with son and daughter at bedside (2) Colon cancer metastasized to bone: Code(s): C18.9 - Malignant neoplasm of colon, unspecified; C79.51 - Secondary malignant neoplasm of bone Status: Acute (3) Atrial fibrillation with RVR: Code(s): I48.91 - Unspecified atrial fibrillation Status: Acute (4) Coronary artery disease: Code(s): I25.10 - Atherosclerotic heart disease of [place] coronary artery without angina pectoris Status: Acute (5) Congestive heart failure, unspecified: Code(s): I50.9 - Heart failure, unspecified Status: Acute (6) Essential hypertension: Code(s): I10 - Essential (primary) hypertension Status: Acute
--- NOTE | 2024-11-27 22:05 | PC.NURSE ---
pt saturation was 88 on ra 2 liters of oxygen applied at this time. pt remains on comfort measures family at bedside.
[2024-11-28] MEDS: PROCHLORPERAZINE EDISYLATE 10 MG/2 ML VIAL IV PUSH ×4 (05:11→23:50)
[2024-11-28 14:17] VITALS: PULSE 100; RESP 20
[2024-11-28] MEDS: HYDROmorphone HCL/PF (*CRX) 50 MG in SODIUM CHLORIDE 0.9% IV 95 ML IV CONT (14:17)
[2024-11-28 20:35] VITALS: O2SAT 96
--- NOTE | 2024-11-28 23:42 | P.PNIM_ITS ---
Progress Note: A&P Assessment and Plan (1) Hospice care: Code(s): Z51.5 - Encounter for palliative care Status: Acute Assessment and Plan: * Meet inpatient hospice criteria due to requiring continue his IV hydromorphone at 0.5 milligrams/hour for control of pain and scheduled IV prochlorperazine 10 mg every 6 hours and dexamethasone 4 mg every 12 hours for control of nausea with emesis * P.r.n. palliative regimen ordered * 11/27/2024 Discussed care and prognosis with son and daughter at bedside * 11/28/2024 Continue current regimen, consider transition to po/rectal regimen if she remains comfortable 11/29 (2) Colon cancer metastasized to bone: Code(s): C18.9 - Malignant neoplasm of colon, unspecified; C79.51 - Secondary malignant neoplasm of bone Status: Acute (3) Atrial fibrillation with RVR: Code(s): I48.91 - Unspecified atrial fibrillation Status: Acute (4) Coronary artery disease: Code(s): I25.10 - Atherosclerotic heart disease of [place] coronary artery without angina pectoris Status: Acute (5) Congestive heart failure, unspecified: Code(s): I50.9 - Heart failure, unspecified Status: Acute (6) Essential hypertension: Code(s): I10 - Essential (primary) hypertension Status: Acute Subjective Date/time seen: 11/28/24 13:02 Interval history: Visit completed via telehealth with hospice nurse at bedside. Remains comfortable. Review of Systems Review of Systems: ROS unobtainable: Yes unobtainable due to medical condition Exam Narrative: Resting comfortably. Minimally responsive. Objective Data Vital Signs Vital Signs: Vital Signs - 24 hr 11/28/24 08:29 11/28/24 14:17 11/28/24 14:17 Pulse Rate 100 100 Respiratory Rate 20 20 Pulse Oximetry Oxygen Delivery Nasal Cannula Oxygen Flow Rate 2 11/28/24 20:35 Pulse Rate Respiratory Rate Pulse Oximetry 96 Oxygen Delivery Nasal Cannula Oxygen Flow Rate 2 Intake/Output Intake/Output: Intake & Output 11/25/24 11/26/24 11/27/24 11/28/24 23:59 23:59 23:59 23:59 Intake Total 263.7 Balance 263.7 Meds/Results Medications: Active Medications Generic Name Dose Route Start Last Admin Trade Name Freq PRN Reason Stop Dose Admin Dexamethasone Sodium Phosphate 4 mg 11/27/24 21:00 11/28/24 20:35 Dexamethasone Sod Phos Inj 4 Mg/Ml Vial IV PUSH 4 mg Q12H JOSHUA Administration Diazepam 5 mg 11/27/24 13:43 Diazepam Inj (*Crx) 10 Mg/2 Ml Syringe IV PUSH Q4H PRN ANXIETY/RESTLESSNESS Hydromorphone HCl 1 mg 11/27/24 13:42 Hydromorphone Hcl Inj (*Crx) 1 Mg/Ml Syr IV PUSH Q2H PRN Pain/DYSPNEA Hydromorphone HCl 50 mg/ 100 mls @ 1 mls/hr 11/27/24 14:00 11/28/24 14:17 Sodium Chloride IV CONT 0.5 mg/hr .Q24H JOSHUA 1 mls/hr 0.5 MG/HR Administration Ondansetron HCl 8 mg 11/27/24 13:45 Ondansetron Inj 4 Mg/2 Ml Vial IV PUSH Q4H PRN Nausea And Vomiting Prochlorperazine Edisylate 10 mg 11/27/24 18:00 11/28/24 18:16 Prochlorperazine Edisylate 10 Mg/2 Ml Vial IV PUSH 10 mg Q6HR JOSHUA Administration Saliva Substitute 15 ml 11/27/24 16:25 Saliva Substitute Rinse 473 Ml Bottle PO QID PRN Dry Mouth
[2024-11-29] MEDS: PROCHLORPERAZINE EDISYLATE 10 MG/2 ML VIAL IV PUSH ×4 (05:01→23:47)
[2024-11-29 06:58] VITALS: BP 125/102; PULSE 177; RESP 20; TEMP 37.1; O2SAT 88
[2024-11-29 08:00] VITALS: BP 125/93; PULSE 104; RESP 16; TEMP 36.5; O2SAT 76; O2SAT 84
[2024-11-29] MEDS: ONDANSETRON INJ 4 MG/2 ML VIAL 8 MG IV PUSH (10:03)
--- NOTE | 2024-11-29 14:02 | P.PNIM_ITS ---
Progress Note: A&P Assessment and Plan (1) Hospice care: Code(s): Z51.5 - Encounter for palliative care Status: Acute Assessment and Plan: * Meet inpatient hospice criteria due to requiring continue his IV hydromorphone at 0.5 milligrams/hour for control of pain and scheduled IV prochlorperazine 10 mg every 6 hours and dexamethasone 4 mg every 12 hours for control of nausea with emesis * P.r.n. palliative regimen ordered * 11/27/2024 Discussed care and prognosis with son and daughter at bedside * 11/28/2024 Continue current regimen, consider transition to po/rectal regimen if she remains comfortable 11/29 * 11/29/2024 Required additional hydromorphone SC due to discomfort, discussed care and prognosis with daughter at bedside (2) Colon cancer metastasized to bone: Code(s): C18.9 - Malignant neoplasm of colon, unspecified; C79.51 - Secondary malignant neoplasm of bone Status: Acute (3) Atrial fibrillation with RVR: Code(s): I48.91 - Unspecified atrial fibrillation Status: Acute (4) Coronary artery disease: Code(s): I25.10 - Atherosclerotic heart disease of [place] coronary artery without angina pectoris Status: Acute (5) Congestive heart failure, unspecified: Code(s): I50.9 - Heart failure, unspecified Status: Acute (6) Essential hypertension: Code(s): I10 - Essential (primary) hypertension Status: Acute Subjective Date/time seen: 11/29/24 14:02 Interval history: IV failed. Taking only 2-3 tsp of water a few times a day and some of that is d rooled out of her mouth. No emesis. Stirring more this afternoon after IV failure. Unable to drink from a stray since 11/28 (a decline since admission). Review of Systems Review of Systems: ROS unobtainable: Yes unobtainable due to medical condition Exam Narrative: GENERAL: Gaunt elderly female lying in semi-recumbent position in hospital bed and fidgeting intermittently HEENT: Sclerae nonicteric, pharyngeal mucosa pink and intact NECK: No JVD, adenopathy, or thyromegaly CHEST: Decreased breath sounds right chest clear left chest, normal effort HEART: NL S1/S2, tachycardic, irregularly irregular rate, no audible murmur ABDOMEN: BS hypoactive, soft, nontender, no mass, no bruits EXTREMITIES: No edema NEUROLOGIC: CN intact and symmetric to inspection MUSCULOSKELETAL: No gross deformities visual inspection PSYCH: Drowsy but arouses easily, oriented to person only, follows simple commands, speech slurred, sparse,soft, and monosyllabic Objective Data Vital Signs Vital Signs: Vital Signs - 24 hr 11/28/24 14:17 11/28/24 14:17 11/28/24 20:35 Temperature Pulse Rate 100 100 Respiratory Rate 20 20 Blood Pressure Pulse Oximetry 96 Oxygen Delivery Nasal Cannula Oxygen Flow Rate 2 11/29/24 06:58 Temperature 98.7 F Pulse Rate 177 H Respiratory Rate 20 Blood Pressure 125/102 H Pulse Oximetry 88 L Oxygen Delivery Oxygen Flow Rate Intake/Output Intake/Output: Intake & Output 11/26/24 11/27/24 11/28/24 11/29/24 23:59 23:59 23:59 23:59 Intake Total 263.7 Balance 263.7 Meds/Results Medications: Active Medications Generic Name Dose Route Start Last Admin Trade Name Freq PRN Reason Stop Dose Admin Dexamethasone Sodium Phosphate 4 mg 11/27/24 21:00 11/29/24 10:00 Dexamethasone Sod Phos Inj 4 Mg/Ml Vial IV PUSH 4 mg Q12H JOSHUA Administration Diazepam 5 mg 11/27/24 13:43 Diazepam Inj (*Crx) 10 Mg/2 Ml Syringe IV PUSH Q4H PRN ANXIETY/RESTLESSNESS Hydromorphone HCl 1 mg 11/27/24 13:42 Hydromorphone Hcl Inj (*Crx) 1 Mg/Ml Syr IV PUSH Q2H PRN Pain/DYSPNEA Hydromorphone HCl 50 mg/ 100 mls @ 1 mls/hr 11/27/24 14:00 11/28/24 14:17 Sodium Chloride IV CONT 0.5 mg/hr .Q24H JOSHUA 1 mls/hr 0.5 MG/HR Administration Ondansetron HCl 8 mg 11/27/24 13:45 11/29/24 10:03 Ondansetron Inj 4 Mg/2 Ml Vial IV PUSH 8 mg Q4H PRN Administration Nausea And Vomiting Prochlorperazine Edisylate 10 mg 11/27/24 18:00 11/29/24 12:53 Prochlorperazine Edisylate 10 Mg/2 Ml Vial IV PUSH 10 mg Q6HR JOSHUA Administration Saliva Substitute 15 ml 11/27/24 16:25 Saliva Substitute Rinse 473 Ml Bottle PO QID PRN Dry Mouth
[2024-11-29 14:30] VITALS: PULSE 82; RESP 22
[2024-11-29] MEDS: HYDROmorphone HCL/PF (*CRX) 50 MG in SODIUM CHLORIDE 0.9% IV 95 ML IV CONT (14:30)
[2024-11-29 20:00] VITALS: BP 134/86; PULSE 63; RESP 16; TEMP 37.2; O2SAT 85
[2024-11-29 21:55] VITALS: O2SAT 91
[2024-11-29] MEDS: diazePAM INJ (*CRX) 10 MG/2 ML SYRINGE 5 MG IV PUSH (22:38)
[2024-11-30] MEDS: PROCHLORPERAZINE EDISYLATE 10 MG/2 ML VIAL IV PUSH ×4 (05:10→23:36)
[2024-11-30 08:00] VITALS: BP 97/59; PULSE 105; RESP 16; TEMP 37.3; O2SAT 89
[2024-11-30] MEDS: diazePAM INJ (*CRX) 10 MG/2 ML SYRINGE 5 MG IV PUSH (09:04)
--- NOTE | 2024-11-30 14:01 | P.PNIM_ITS ---
Progress Note: A&P Assessment and Plan (1) Hospice care: Code(s): Z51.5 - Encounter for palliative care Status: Acute Assessment and Plan: * Meet inpatient hospice criteria due to requiring continue his IV hydromorphone at 0.5 milligrams/hour for control of pain and scheduled IV prochlorperazine 10 mg every 6 hours and dexamethasone 4 mg every 12 hours for control of nausea with emesis * P.r.n. palliative regimen ordered * 11/27/2024 Discussed care and prognosis with son and daughter at bedside * 11/28/2024 Continue current regimen, consider transition to po/rectal regimen if she remains comfortable 11/29 * 11/29/2024 Required additional hydromorphone SC due to discomfort, discussed care and prognosis with daughter at bedside * 11/30/2024 Required p.r.n. diazepam twice in the last 24 hours, now comfortable but hypotensive with blood pressure in the 80s systolic, discussed care and prognosis with sister at bedside (2) Colon cancer metastasized to bone: Code(s): C18.9 - Malignant neoplasm of colon, unspecified; C79.51 - Secondary malignant neoplasm of bone Status: Acute (3) Atrial fibrillation with RVR: Code(s): I48.91 - Unspecified atrial fibrillation Status: Acute (4) Coronary artery disease: Code(s): I25.10 - Atherosclerotic heart disease of [place] coronary artery without angina pectoris Status: Acute (5) Congestive heart failure, unspecified: Code(s): I50.9 - Heart failure, unspecified Status: Acute (6) Essential hypertension: Code(s): I10 - Essential (primary) hypertension Status: Acute Subjective Date/time seen: 11/30/24 14:01 Interval history: Unresponsive. Required p.r.n. diazepam last night and again this morning for restlessness. Now resting comfortably. Review of Systems Review of Systems: ROS unobtainable: Yes unobtainable due to medical condition Exam Narrative: GENERAL: Gaunt elderly female lying in semi-recumbent position in hospital bed HEENT: Sclerae nonicteric, pharyngeal mucosa pink and intact NECK: No JVD, adenopathy, or thyromegaly CHEST: Decreased breath sounds right chest clear left chest, normal effort HEART: NL S1/S2, tachycardic, irregularly irregular rate, no audible murmur ABDOMEN: BS hypoactive, soft, nontender, no mass, no bruits EXTREMITIES: No edema NEUROLOGIC: CN intact and symmetric to inspection MUSCULOSKELETAL: No gross deformities visual inspection PSYCH:Unresponsive to verbal or tactile stimuli Objective Data Vital Signs Vital Signs: Vital Signs - 24 hr 11/29/24 14:30 11/29/24 14:30 11/29/24 20:00 Temperature 98.9 F Pulse Rate 82 82 63 Respiratory Rate 22 H 22 H 16 Blood Pressure 134/86 Pulse Oximetry 85 L Oxygen Delivery Oxygen Flow Rate 11/29/24 21:55 11/30/24 08:00 Temperature 99.1 F Pulse Rate 105 H Respiratory Rate 16 Blood Pressure 97/59 L Pulse Oximetry 91 89 L Oxygen Delivery Nasal Cannula Oxygen Flow Rate 2 Intake/Output Intake/Output: Intake & Output 11/27/24 11/28/24 11/29/24 11/30/24 23:59 23:59 23:59 23:59 Intake Total 263.7 24.2 0 Balance 263.7 24.2 0 Meds/Results Medications: Active Medications Generic Name Dose Route Start Last Admin Trade Name Freq PRN Reason Stop Dose Admin Dexamethasone Sodium Phosphate 4 mg 11/27/24 21:00 11/29/24 21:55 Dexamethasone Sod Phos Inj 4 Mg/Ml Vial IV PUSH 4 mg Q12H JOSHUA Administration Diazepam 5 mg 11/27/24 13:43 11/30/24 09:04 Diazepam Inj (*Crx) 10 Mg/2 Ml Syringe IV PUSH 5 mg Q4H PRN Administration ANXIETY/RESTLESSNESS Hydromorphone HCl 1 mg 11/27/24 13:42 Hydromorphone Hcl Inj (*Crx) 1 Mg/Ml Syr IV PUSH Q2H PRN Pain/DYSPNEA Hydromorphone HCl 50 mg/ 100 mls @ 1 mls/hr 11/27/24 14:00 11/29/24 14:30 Sodium Chloride IV CONT 0.5 mg/hr .Q24H JOSHUA 1 mls/hr 0.5 MG/HR Administration Ondansetron HCl 8 mg 11/27/24 13:45 11/29/24 10:03 Ondansetron Inj 4 Mg/2 Ml Vial IV PUSH 8 mg Q4H PRN Administration Nausea And Vomiting Prochlorperazine Edisylate 10 mg 11/27/24 18:00 11/30/24 05:10 Prochlorperazine Edisylate 10 Mg/2 Ml Vial IV PUSH 10 mg Q6HR JOSHUA Administration Saliva Substitute 15 ml 11/27/24 16:25 Saliva Substitute Rinse 473 Ml Bottle PO QID PRN Dry Mouth
[2024-11-30 14:43] VITALS: PULSE 84; RESP 20
[2024-11-30] MEDS: HYDROmorphone HCL/PF (*CRX) 50 MG in SODIUM CHLORIDE 0.9% IV 95 ML IV CONT (14:43)
[2024-11-30 20:00] VITALS: BP 99/78; PULSE 27; RESP 14; TEMP 36.7; O2SAT 82
--- NOTE | 2024-12-01 12:09 | P.DN_ITS ---
Discharge Summary Date and Time Date of : 12/01/24 Time of : 04:04 Provider Pronounced By: 2 RNs Name of First RN That Pronounced: Shelby Juarez Name of Second RN That Pronounced: Bunny Mckeon Probable Cause of Probable Cause of : Colon cancer with widespread metastases Summary Hospital Course: Admitted inpatient hospice service for symptom management. Medications were titrated to comfort. Mrs. So peacefully Additional Data Confirmation of as documented by pronouncing clinician: Pupillary Reflex Name of Provider Notified: roverto cardenas Time Provider Notified: 07:30 Assessment Expert Notified: Yes Date [facility] Notified of : 12/01/24 Time [facility] Notified of : 04:45
== END 2024-12-01 04:04 | disposition expired | DRG 951 ==
PROVIDERS: Emergency Medicine; Admitting Provider Internal Medicine; PCP Family Medicine; Visit Provider Internal Medicine
DX: Z51.5 Encounter for palliative care (principal); C79.51 Secondary malignant neoplasm of bone; C78.89 Secondary malignant neoplasm of other digestive organs; C78.7 Secondary malignant neoplasm of liver and intrahepatic bile duct; C78.00 Secondary malignant neoplasm of unspecified lung; I48.20 Chronic atrial fibrillation, unspecified; I11.0 Hypertensive heart disease with heart failure; I50.9 Heart failure, unspecified; I25.10 Atherosclerotic heart disease of native coronary artery without angina pectoris; Z85.038 Personal history of other malignant neoplasm of large intestine
CPT/HCPCS: 36415; 80053; 81001; 85025; 85610; 85730; 93005; 96361; 96374; 96375; 99285; A9270; J0780; J1100; J1163; J1171; J2405; J3360; J7120